=== PATIENT | male | born 1980 | race Caucasian/White ===

== ENCOUNTER 2016-10-19 17:38 | Emergency (ER) | payer BC ==
[2016-10-19 17:51] VITALS: BP 156/121
--- NOTE | 2016-10-19 17:58 | UC ---
Abdominal Pain Male HPI - HPI Summary HPI Summary: The patient comes in today for: 1. Abdominal pain and frequency of stooling. Onset: Going on for a week. Palliative/provocative: Nothing makes his symptoms better or worse. Quality: Sharp Region: The whole abdomen with some pain radiation to the lower back. Severity: 6/10 Time: Comes and goes. Associated symptoms: Hematochezia: Present for a week. Previous disease: He had this before about a half year ago. He did not see any specialist. Fevers: NO temperature taken. Stools are firm with blood present. There have been blood clots recently with his firm bowel movements. Sex active: one female partner with no anal activity. * - History of Current Complaint Chief Complaint: UCGI Stated Complaint: STOMACH ACHE Time Seen by Provider: 10/19/16 17:53 Hx Obtained From: Patient - Allergies/Home Medications Allergies/Adverse Reactions: Allergies Allergy/AdvReac Type Severity Reaction Status Date / Time No Known Allergies Allergy Verified 10/19/16 17:51 PMH/Surg Hx/FS Hx/Imm Hx Previously Healthy: No Endocrine History Of: Denies: Diabetes, Thyroid Disease, Hyperthyroidism, Hypothyroidism, Dyslipidemia Cardiovascular History Of: Denies: Cardiac Disorders, Hypertension, Pacemaker/ICD, Myocardial Infarction , Congestive Heart Failure, Atrial Fibrillation, Deep Vein Thrombosis, Bleeding Disorders Respiratory History Of: Denies: COPD, Asthma, Bronchitis, Pneumonia, Pulmonary Embolism GI/ History Of: Reports: Gastrointestinal Bleed - See HPI. HE had this before. Denies: Gastroesophageal Reflux, Ulcer, Gall Bladder Disease, Kidney Stones, Diverticulitis, Renal Disease, Urosepsis Neurological History Of: Denies: TIA, CVA, Dementia, Seizures, Migraine Psychological History Of: Denies: Anxiety, Depression, Bipolar Disorder, Schizophrenia, Post Traumatic Stress Disorder Cancer History Of: Denies: Lung Cancer, Colorectal Cancer, Breast Cancer, Prostate Cancer, Cervical Cancer Other History Of: Negative For: HIV, Hepatitis B, Hepatitis C, Anticoagulant Therapy - Surgical History Surgical History: None - Family History Known Family History: Negative: Cardiac Disease, Hypertension - Social History Occupation: Employed Full-time Alcohol Use: None Substance Use Type: None Smoking Status (MU): Former Smoker Review of Systems Constitutional: Negative Skin: Negative Eyes: Negative ENT: Negative Respiratory: Negative Cardiovascular: Negative Gastrointestinal: Abdominal Pain Genitourinary: Negative Motor: Negative All Other Systems Reviewed And Are Negative: Yes Physical Exam Triage Information Reviewed: Yes Appearance: Well-Appearing, No Pain Distress, Obese Vital Signs: Initial Vital Signs Temp 98.2 F 10/19/16 17:47 Pulse 109 10/19/16 17:47 Resp 14 10/19/16 17:47 BP 156/121 10/19/16 17:47 Pulse Ox 98 10/19/16 17:47 Vital Signs Reviewed: Yes Eyes: Positive: Conjunctiva Clear. Negative: Discharge ENT: Positive: Hearing grossly normal. Negative: Pharyngeal erythema, Nasal congestion, Nasal drainage, TM bulging, TM dull, TM red, Tonsillar swelling, Tonsillar exudate Dental: Negative: Gross Decay/Caries @, Dental Fracture @ Neck: Positive: Supple, Nontender, No Lymphadenopathy. Negative: Nuchal Rigidity Respiratory: Positive: Lungs clear, No respiratory distress, No accessory muscle use. Negative: Crackles, Wheezing Cardiovascular: Positive: RRR, No Murmur Abdomen Description: Positive: No Organomegaly, Soft, Other: - Examination was difficult due to amount of adipose tissue.. Negative: Nontender - He had tenderness of the lower left quadrant, Distended, Guarding, McBurney's Point Tenderness, Peritoneal Signs - No rebound our percussion tenderness. Musculoskeletal: Positive: Strength Intact, ROM Intact, No Edema Neurological: Positive: Alert, Muscle Tone Normal Psychological: Positive: Age Appropriate Behavior, Consolable Skin: Negative: rashes, breakdown UC Physical Exam Vital Signs On Initial Exam: Initial Vitals Temp Pulse Resp BP Pulse Ox 98.2 F 109 14 156/121 98 10/19/16 17:47 10/19/16 17:47 10/19/16 17:47 10/19/16 17:47 10/19/16 17:47 - Rectal Exam Rectal Exam: Other - The patient declined a rectal exam. Abd Pain Male Course/Dx - Course Course Of Treatment: The patient was told that I did not know what was causing his abdominal pain and bleeding. He was told that it could be diverticulitis/ diverticulosis, colitis, polyp, hemorrhoids, and other things. He was encouraged to go to the ER for further evaluation. However, he decided against that. - Differential Dx/Clinical Impression Provider Diagnoses: abdominal pain--etiology undertermined. hematochezia-- etiology undetermined. Discharge - Discharge Plan Condition: Stable Disposition: AGAINST MEDICAL ADVICE Referrals: No Primary Care Phys,NOPCP [Primary Care Provider] - Additional Instructions: If you are not going to the ER at this time as recommended, please at least reconsider if you get worse. Please see the GI specialists as those listed on the included papers.
== END 2016-10-19 18:47 | disposition left against medical advice (07) ==
LOC: UCCORT 17:38
DX: R10.32 Left lower quadrant pain (principal); K92.1 Melena; Z87.891 Personal history of nicotine dependence; E66.9 Obesity, unspecified
CPT/HCPCS: 99212; G0463

== ENCOUNTER 2016-10-28 12:17 | Inpatient (IN) | payer BC ==
[2016-10-28] MEDS ORDERED: Ondansetron INJ* 2 MG/ML VIAL IV ONE (12:36)
[2016-10-28] MEDS ORDERED: Pantoprazole IV* 40 MG IV ONE (12:36)
[2016-10-28] MEDS ORDERED: NS 0.9% 1000 ML* 2,000 ML IV ONE (12:36)
[2016-10-28 12:49] LABS: Hematocrit 35 % (42-52); Mean Corpuscular HGB Conc 32 g/dl (31-36); Mean Corpuscular Hemoglobin 22 pg (27-31); Mean Corpuscular Volume 70 fL (80-94); Mean Platelet Volume 9 um3 (7.4-10.4); Red Blood Count 5.03 10^6/ul (4.0-5.4); Red Cell Distribution Width 17 % (10.5-15); White Blood Count 23.6 10^3/ul (3.5-10.8)
[2016-10-28 12:55] LABS: Add Diff/Slide Review? Slide Review Added; Comments Flag Yes
[2016-10-28 13:05] LABS: ALT 46 U/L (7-52); AST 31 U/L (13-39); Albumin 2.6 g/dL (3.2-5.2); Alkaline Phosphatase 59 U/L (34-104); Anion Gap 12 mmol/L (2-11); BUN/Creatinine Ratio 18.5 (8-20); Blood Urea Nitrogen 15 mg/dL (6-24); C Reactive Protein 164.95 mg/L (< 5.00); CO2 Carbon Dioxide 26 mmol/L (22-32); Calcium 7.7 mg/dL (8.6-10.3); Chloride 90 mmol/L (101-111); EGFR African American 139.5 (>60); EGFR Non-African American 108.4 (>60); Glucose 178 mg/dL (70-100); Lipase < 10 U/L (11.0-82.0); Potassium 2.8 mmol/L (3.5-5.0); Sodium 128 mmol/L (133-145); Total Protein 5.6 g/dL (6.4-8.9)
--- NOTE | 2016-10-28 13:18 | RAD ---
Indication: Lightheadedness. Single frontal view of the chest performed at 1253 hours was reviewed. No prior study is available for comparison. No mediastinal shift is noted. Heart is of normal size and configuration. Lung cullen appear clear. IMPRESSION: NO ACTIVE CARDIOPULMONARY DISEASE IS NOTED.
[2016-10-28] MEDS ORDERED: metroNIDAZOLE IV 500 MG/100ML* 500 MG/100 ML BAG IVPB ONE (13:32)
[2016-10-28] MEDS ORDERED: Ciprofloxacin 400MG IVPREMIX(* 400 MG/200 ML BAG IVPB ONE (13:32)
[2016-10-28 13:38] LABS: Immature Granulocytes 28 % (0-9); Myelocytes % 2 % (0-1); Neutrophil % 58 % (38-83); Reactive Lymph % 2 % (0-6)
[2016-10-28 13:40] LABS: Macrocytosis 1+; Microcytosis 1+; Polychromasia 2+
[2016-10-28 13:41] LABS: Add Path Review? YES; Hypochromasia 2+
[2016-10-28] MEDS ORDERED: Iohexol 350* (CONTRAST) 500 ML MDV IV ONE (14:40)
[2016-10-28] MEDS ORDERED: Acetaminophen TAB* 325 MG PO PRN (14:52)
[2016-10-28] MEDS ORDERED: Ondansetron INJ* 2 MG/ML VIAL IV PRN (14:52)
[2016-10-28] MEDS ORDERED: Potassium Chloride LIQUID* 20 MEQ PACKET PO ONE (14:58)
[2016-10-28] MEDS ORDERED: NS 0.9% 1000 ML* 1,000 ML IV SCH (15:00)
[2016-10-28 15:25] LABS: Magnesium 2.2 mg/dL (1.9-2.7)
[2016-10-28] MEDS ORDERED: Iohexol 300* (CONTRAST) 10 ML SDV IV ONE (15:30)
[2016-10-28] MEDS: NS 0.9% 1000 ML* 2,000 ML IV ONE (16:03)
[2016-10-28] MEDS: KCL 20 MEQ/100 ML IVPREMIX* 20 MEQ/100 ML BAG IV SCH ×2 (16:12→23:37)
--- NOTE | 2016-10-28 16:12 | RAD ---
Indication: Abdominal pain, bloody diarrhea. CT of the abdomen and pelvis was performed after oral and IV contrast administration. The lung bases demonstrate small right pleural effusion with right basilar atelectasis. Heart demonstrates no pericardial effusion. Liver is normal in size. No focal lesions or intrahepatic ductal dilatation. A small amount of ascites is noted. The gallbladder demonstrates small gallstones. No pericholecystic fluid or wall thickening is identified. Common duct is not dilated. The pancreas demonstrates no mass or pancreatic duct dilatation. The spleen is normal in size. No adrenal masses are noted. The kidneys demonstrate symmetric nephrograms without hydronephrosis in either kidney. No retroperitoneal lymphadenopathy is noted. No dilated loops of bowel are noted. CT of the pelvis prostate and seminal vesicles are unremarkable. The urinary bladder is unremarkable. No abnormal adenopathy is noted. There is submucosal edema throughout the entire colon. This is consistent with a pain colitis. This extends into the terminal ileum. Differential diagnosis includes inflammatory bowel disease, infectious colitis or pseudomembranous colitis. Clinical correlation is suggested. IMPRESSION: SUBMUCOSAL EDEMA THROUGHOUT THE COLON EXTENDING INTO THE TERMINAL ILEUM. FINDINGS ARE CONSISTENT WITH INFLAMMATORY BOWEL DISEASE VERSUS INFECTIOUS COLITIS VERSUS PSEUDOMEMBRANOUS COLITIS. NO EVIDENCE OF ABSCESS IS NOTED. TRACE AMOUNT OF ASCITES AND A SMALL RIGHT PLEURAL EFFUSION.
[2016-10-28] MEDS: Ciprofloxacin 400MG IVPREMIX(* 400 MG/200 ML BAG IVPB SCH (16:14)
[2016-10-28] MEDS: metroNIDAZOLE IV 500 MG/100ML* 500 MG/100 ML BAG IVPB SCH ×2 (16:14→23:47)
--- NOTE | 2016-10-28 19:52 | ED ---
Jaxon Campbell Billy, scribed for Luis A Magallanes MD on 10/28/16 at 1235 . Abdominal Pain/Male - HPI Summary HPI Summary: Patient is a 36 year-old male coming to [facility] for evaluation of intermittent blood in the stool for approximately 1 month. He was seen in the [facility] ED on 10/20/16 and was diagnosed with constipation, and discharged home with Monica-lax. He then visited the ED again 2 days later and was diagnosed with colitis with CT imaging. He states that he feels dizzy and pale and has intermittent diffuse abdominal pain. He has also had numerous episodes of vomiting and diarrhea. He describes his stool as occasionally black, brown, or with bright red blood. He also states that his naval is painful with intermittent bloody discharge. Denies any history of GERD or bloodthinner use. - History of Current Complaint Chief Complaint: EDGIBleed Stated Complaint: BLOOD IN STOOL/DIZZY Time Seen by Provider: 10/28/16 12:26 Hx Obtained From: Patient Onset/Duration: Gradual Onset, Lasting Weeks Timing: Intermittent Severity Initially: Moderate Severity Currently: Moderate Pain Intensity: 3 Pain Scale Used: 0-10 Numeric Location: Diffuse Radiates: No Aggravating Factor(s): Nothing Alleviating Factor(s): Nothing Associated Signs And Symptoms: Positive: Blood in Stool, Nausea, Vomiting, Diarrhea, Other - dizzy, pale - Allergies/Home Medications Allergies/Adverse Reactions: Allergies Allergy/AdvReac Type Severity Reaction Status Date / Time No Known Allergies Allergy Verified 10/28/16 12:20 PMH/Surg Hx/FS Hx/Imm Hx Endocrine/Hematology History: Denies: Hx Anticoagulant Therapy, Hx Diabetes, Hx Thyroid Disease Cardiovascular History: Denies: Hx Congestive Heart Failure, Hx Deep Vein Thrombosis, Hx Hypertension , Hx Myocardial Infarction, Hx Pacemaker/ICD Respiratory History: Denies: Hx Asthma, Hx Chronic Obstructive Pulmonary Disease (COPD), Hx Lung Cancer, Hx Pneumonia, Hx Pulmonary Embolism GI History: Reports: Hx Gastrointestinal Bleed - See HPI. HE had this before. Denies: Hx Gall Bladder Disease, Hx Ulcer, Hx Urosepsis History: Denies: Hx Kidney Stones, Hx Renal Disease Neurological History: Denies: Hx Dementia, Hx Migraine, Hx Seizures, Hx Transient Ischemic Attacks (TIA) Psychiatric History: Denies: Hx Anxiety, Hx Depression, Hx Schizophrenia, Hx Bipolar Disorder Infectious Disease History: Denies: Traveled Outside the [place] in Last 30 Days - Family History Known Family History: Negative: Cardiac Disease, Hypertension - Social History Alcohol Use: None Substance Use Type: Reports: None Smoking Status (MU): Former Smoker Review of Systems Positive: Abdominal Pain, Vomiting, Diarrhea, Nausea, Other - blood in stool; naval discharge Positive: Other - pale Neurological: Other - dizzy All Other Systems Reviewed And Are Negative: Yes Physical Exam Triage Information Reviewed: Yes Vital Signs On Initial Exam: Initial Vitals Temp Pulse Resp BP Pulse Ox 98 F 109 22 151/98 98 10/28/16 12:21 10/28/16 12:21 10/28/16 12:21 10/28/16 12:21 10/28/16 12:21 Vital Signs Reviewed: Yes Appearance: Positive: Well-Appearing, No Pain Distress Skin: Positive: Warm, Dry, Pale Head/Face: Positive: Normal Head/Face Inspection Eyes: Positive: EOMI, JAN ENT: Positive: Normal ENT inspection Neck: Positive: Supple, Nontender Respiratory/Lung Sounds: Positive: Clear to Auscultation, Breath Sounds Present Cardiovascular: Positive: Tachycardia Abdomen Description: Positive: Nontender, Soft Bowel Sounds: Positive: Present Musculoskeletal: Positive: Normal, Strength/ROM Intact Neurological: Positive: Normal, Sensory/Motor Intact, Alert, Oriented to Person Place, Time Psychiatric: Positive: Affect/Mood Appropriate Diagnostics - Vital Signs Vital Signs Temp Pulse Resp BP Pulse Ox 10/28/16 12:21 98 F 109 22 151/98 98 - Laboratory Lab Results: Lab Results 10/28/16 10/28/16 10/28/16 Range/Units 12:35 12:35 12:35 WBC 23.6 H (3.5-10.8) 10^3/ul RBC 5.03 (4.0-5.4) 10^6/ul Hgb 11.0 L (14.0-18.0) g/dl Hct 35 L (42-52) % MCV 70 L (80-94) fL MCH 22 L (27-31) pg MCHC 32 (31-36) g/dl RDW 17 H (10.5-15) % Plt Count 70 L (150-450) 10^3/ul MPV 9 (7.4-10.4) um3 Immature Gran % (Auto) 28 H (0-9) % Neut % (Auto) 88.3 H (38-83) % Lymph % (Auto) 6.7 L (25-47) % Logan % (Auto) 4.6 (1-9) % Eos % (Auto) 0.1 (0-6) % Baso % (Auto) 0.3 (0-2) % Absolute Neuts (auto) 20.8 H (1.5-7.7) 10^3/ul Absolute Lymphs (auto) 1.6 (1.0-4.8) 10^3/ul Absolute Monos (auto) 1.1 H (0-0.8) 10^3/ul Absolute Eos (auto) 0 (0-0.6) 10^3/ul Absolute Basos (auto) 0.1 (0-0.2) 10^3/ul Absolute Nucleated RBC 0.14 10^3/ul Neutrophils % 58 (38-83) % Band Neutrophils % 26 H (0-8) % Lymphocytes % 10 L (25-47) % Reactive Lymphs % 2 (0-6) % Monocytes % 2 (0-13) % Myelocytes % 2 H (0-1) % Nucleated RBC % 0.6 Normal RBC Morphology Not Reportable Polychromasia 2+ Hypochromasia 2+ Microcytosis 1+ Macrocytosis 1+ Hem Pathologist Commnt Pending INR (Anticoag Therapy) 1.30 H (0.89-1.11) APTT 31.7 (26.0-36.3) seconds Sodium 128 L (133-145) mmol/L Potassium 2.8 L (3.5-5.0) mmol/L Chloride 90 L (101-111) mmol/L Carbon Dioxide 26 (22-32) mmol/L Anion Gap 12 H (2-11) mmol/L BUN 15 (6-24) mg/dL Creatinine 0.81 (0.67-1.17) mg/dL Est GFR ( Amer) 139.5 (>60) Est GFR (Non-Af Amer) 108.4 (>60) BUN/Creatinine Ratio 18.5 (8-20) Glucose 178 H (70-100) mg/dL Lactic Acid (0.5-2.0) mmol/L Calcium 7.7 L (8.6-10.3) mg/dL Magnesium 2.2 (1.9-2.7) mg/dL Total Bilirubin 0.50 (0.2-1.0) mg/dL AST 31 (13-39) U/L ALT 46 (7-52) U/L Alkaline Phosphatase 59 (34-104) U/L C-Reactive Protein 164.95 H (< 5.00) mg/L Total Protein 5.6 L (6.4-8.9) g/dL Albumin 2.6 L (3.2-5.2) g/dL Globulin 3.0 (2-4) g/dL Albumin/Globulin Ratio 0.9 L (1-3) Lipase < 10 L (11.0-82.0) U/L Blood Type Antibody Screen 10/28/16 10/28/16 Range/Units 12:35 12:35 WBC (3.5-10.8) 10^3/ul RBC (4.0-5.4) 10^6/ul Hgb (14.0-18.0) g/dl Hct (42-52) % MCV (80-94) fL MCH (27-31) pg MCHC (31-36) g/dl RDW (10.5-15) % Plt Count (150-450) 10^3/ul MPV (7.4-10.4) um3 Immature Gran % (Auto) (0-9) % Neut % (Auto) (38-83) % Lymph % (Auto) (25-47) % Logan % (Auto) (1-9) % Eos % (Auto) (0-6) % Baso % (Auto) (0-2) % Absolute Neuts (auto) (1.5-7.7) 10^3/ul Absolute Lymphs (auto) (1.0-4.8) 10^3/ul Absolute Monos (auto) (0-0.8) 10^3/ul Absolute Eos (auto) (0-0.6) 10^3/ul Absolute Basos (auto) (0-0.2) 10^3/ul Absolute Nucleated RBC 10^3/ul Neutrophils % (38-83) % Band Neutrophils % (0-8) % Lymphocytes % (25-47) % Reactive Lymphs % (0-6) % Monocytes % (0-13) % Myelocytes % (0-1) % Nucleated RBC % Normal RBC Morphology Polychromasia Hypochromasia Microcytosis Macrocytosis Hem Pathologist Commnt INR (Anticoag Therapy) (0.89-1.11) APTT (26.0-36.3) seconds Sodium (133-145) mmol/L Potassium (3.5-5.0) mmol/L Chloride (101-111) mmol/L Carbon Dioxide (22-32) mmol/L Anion Gap (2-11) mmol/L BUN (6-24) mg/dL Creatinine (0.67-1.17) mg/dL Est GFR ( Amer) (>60) Est GFR (Non-Af Amer) (>60) BUN/Creatinine Ratio (8-20) Glucose (70-100) mg/dL Lactic Acid 3.7 H* (0.5-2.0) mmol/L Calcium (8.6-10.3) mg/dL Magnesium (1.9-2.7) mg/dL Total Bilirubin (0.2-1.0) mg/dL AST (13-39) U/L ALT (7-52) U/L Alkaline Phosphatase (34-104) U/L C-Reactive Protein (< 5.00) mg/L Total Protein (6.4-8.9) g/dL Albumin (3.2-5.2) g/dL Globulin (2-4) g/dL Albumin/Globulin Ratio (1-3) Lipase (11.0-82.0) U/L Blood Type A Negative Antibody Screen Negative Result Diagrams: 10/28/16 12:35 10/28/16 12:35 Lab Statement: Any lab studies that have been ordered have been reviewed, and results considered in the medical decision making process. - Radiology CXR Xray Interpretation: No Acute Changes Radiology Interpretation Completed By: Radiologist - CT abd/pel w CT Interpretation Completed By: Radiologist - SUBMUCOSAL EDEMA THROUGHOUT THE COLON EXTENDING INTO THE TERMINAL ILEUM. FINDINGS ARE CONSISTENT WITH INFLAMMATORY BOWEL DISEASE VERSUS INFECTIOUS COLITIS VERSUS PSEUDOMEMBRANOUS COLITIS. NO EVIDENCE OF ABSCESS IS NOTED. TRACE AMOUNT OF ASCITES AND A SMALL RIGHT PLEURAL EFFUSION. - EKG 1302 Cardiac Rate: NL - 98 bpm EKG Rhythm: Sinus Rhythm ST Segment: Normal EKG Interpretation: Prolonged QTc 511 Re-Evaluation - Re-Evaluation First Eval Re-Evaluation Time: 13:28 Comment: Labs reviewed. Abdominal Pain Fem Course/Dx - Course Course Of Treatment: NO CRITICAL CARE TIME Assessment/Plan: ADMIT HOSPITALIST STABLE - Diagnoses Provider Diagnoses: Colitis - Provider Notifications Discussed Care Of Patient With: Dr. Carmichael (hospitalist) at 1330: accepts admission. Discharge - Discharge Plan Condition: Stable Disposition: ADMITTED TO [facility] documentation as recorded by the Jaxon tristan Billy accurately reflects the service I personally performed and the decisions made by me, Luis A Magallanes MD.
[2016-10-28 20:59] LABS: Hematocrit 29 % (42-52)
[2016-10-28 21:00] LABS: Comments Flag Yes
--- NOTE | 2016-10-28 22:29 | HP ---
HISTORY AND PHYSICAL: DATE OF ADMISSION: 10/28/16 PRIMARY CARE PROVIDER: None. ATTENDING PHYSICIAN WHILE IN THE HOSPITAL: Manuel Carmichael MD * (report dictated by Sheridan Espinoza NP) CONSULTING MANAGER ORACLE: Herrera Winkler MD CHIEF COMPLAINT: Bloody diarrhea. HISTORY OF PRESENT ILLNESS: Mr. Hardin is a 36-year-old male patient, for the last 10 days, he has had blood diarrhea almost on an hourly basis. He comes in today stating that this has gotten progressively worse. He was evaluated twice in [place]. He was told by them that he appeared to have a CAT scan that showed colitis per his report and said that he was discharged for a close followup with Gastroenterology. He denies having any episodes like this previously. He says that he has not had any change in symptoms today as he started vomiting and was not feeling good. He says that when he does go to the bathroom, he is having cramping, but he denies having any recent trips or travel. There is no use of recent antibiotics. He says that he has not had any , again there is no abdominal pain and he only had one episode of vomiting today. He does admit to having some chills, but no fever to his knowledge; he does not have a thermometer. He denied having any chest pain or shortness of breath. He does state that he has been trying to eat, but he has noticed his appetite has decreased over the last couple of days and he just has not been feeling well and he felt very weak today, so he decided to come into the ER and he was evaluated. Here in the ED, it was noted that he has significant leukocytosis. He appeared to be dehydrated. In addition to this, he was noted to have a lactic acidosis and he was having frequent stools here in the ED. Because of these findings, the Hospitalist Service was asked to evaluate for admission. PAST MEDICAL HISTORY: Denied. PAST SURGICAL HISTORY: Denied. HOME MEDICATIONS: Includes ibuprofen 800 mg every 6 hours as needed for pain, although he says he has not been taking that over the last several weeks because of what has been going on. ALLERGIES TO MEDICATIONS: No known drug allergies. FAMILY HISTORY: Mother had a history of COPD. Father's history is reviewed and noncontributory. There has been no reports in the family history of ulcerative colitis or Crohn's to his knowledge. SOCIAL HISTORY: He has been smoking off and on since the age of 17. He does not drink alcohol. He is . He does have children. Surrogate decision maker is his significant other. REVIEW OF SYSTEMS: There is documented chills, but denies having any documented fever. He denied having any significant weight change to his knowledge. He denied having any double vision. There was no ear discharge. He denies having any rhinorrhea or any sore throat. He had no thyroid enlargement. He denies having any chest pain. He has abdominal cramping when he does have diarrhea and there was one episode or nausea and vomiting, but no dysuria. No frequency. No loss of consciousness. No pruritus. No skin ulcerations. Review of 14 systems completed, all others negative. PHYSICAL EXAMINATION GENERAL: At this time, Mr. Hardin is a 36-year-old male patient. He is obese. He is sitting in the ER stretcher. He does not appear to be in any acute distress. VITAL SIGNS: Reveals blood pressure 160/67, pulse 102, respirations 18, O2 sat of 99%, and temperature 97.2. HEENT: Head is atraumatic and normocephalic. Eyes: EOMs are intact. Sclerae anicteric and not pale. NECK: Supple. Throat: Oral mucosa appears to be moist. No oropharyngeal erythema. LUNGS: Clear to auscultation bilaterally. No wheezes, rales, or rhonchi. HEART: Sounds S1, S2. Regular rate and rhythm. No murmurs, rubs, or gallops. ABDOMEN: Soft, flat, and nontender. Bowel sounds present. He did have a liquid BM while examining him, once again it was noted to be red discoloration, in addition to this it was liquid. Bowel sounds were hyperactive. EXTREMITIES: Pulses were 2+ throughout. He is able to move all 4 extremities with 5/5 strength. NEUROLOGIC: The patient is awake, he is alert, and he is oriented x3. Tongue midline. Wave Soldering Machine Operator were equal. He had no gross focal deficits. SKIN: Intact. DIAGNOSTIC STUDIES/LAB DATA: Labs revealed WBC of 23.6, RBC of 5.03, hemoglobin 11.8, hematocrit of 35, and platelet count of 170. His INR was 1.30 and his PTT was 31.7. Sodium was 138, potassium was 2.8, chloride 90, bicarb was 26, his BUN was 15, creatinine of 0.81, glucose 178, lactic 3.7, and calcium 7.7. Total bilirubin 0.5, AST 31, and ALT 46. His CRP was 164.9. Albumin of 2.6. Lipase was negative. Chest x-ray shows no active cardiopulmonary disease was noted. He had an EKG obtained today, which showed a normal sinus rhythm, rate of 98, and no ST elevation or T-wave inversions. C. diff was negative. Old medical records reviewed. ASSESSMENT AND PLAN: Mr. Hardin is a 36-year-old male patient coming into the ER today with complaints of liquidy, bloody diarrhea which is going on for 10 days. His H and H is stable; however, because of the fact that he had a significant bandemia and he had several electrolyte abnormalities. Hospitalist Service was asked to evaluate for admission. He will be admitted under inpatient status for: 1. Diarrhea: At this point, etiology is unclear. Certainly, this could be a colitis whether or not infectious or inflammatory is yet to be determined; however, it sounds like it is probably more infectious given his lab findings and the fact that this has been going on for 10 days. I do think the GI consult is appropriate, antibiotics at this point are appropriate in the form of Cipro, Flagyl, aggressive hydration, and a CT of the abdomen is pending. He do not appear to have an acute abdomen on my exam, but obviously if the CAT scan shows anything concerning, we will get a surgical consult. I do think, we will go ahead and hydrate him aggressively, replace his potassium. I think, he is hyponatremic because of the fact he is so dehydrated and we will try to get this improved with aggressive hydration. We will give him 4 L of wide open and normal saline and 100 an hour and continue IV antibiotic therapy. 2. Thrombocytopenia: Again, etiology is unclear. It could be related to an underlying viral illness causing this GI problem, possibly could be related to the fact that he has lost a fair amount of blood in the setting of acute illness. We will monitor this for the time being. 3. Leukocytosis: Again this is probably related to the colitis, but I am going to get panculture the patient and we will monitor. Again, we will panculture the stool and urine and we will monitor for any source, but I am going to treat him with empiric antibiotics. I do note that his lactic acid is 3.7, we are going to again hydrate him and repeat this and make sure it is trending down. 4. DVT prophylaxis: He will be placed on SCDs. 5. Code status: He is full code. 6. Fluids, electrolytes, and nutrition: Clear liquid diet. TIME SPENT: Time spent on the admission was 60 minutes; greater than half the time was spent [id number] with the patient obtaining my history and physical, the other half time is spent going over the plan of care with the patient and implementing plan of care. I discussed the plan of care with my attending, Dr. Carmichael. He is in agreement. SHERIDAN ESPINOZA NP CC: Herrera Winkler MD* [id number]/CPS #: [id number] MTDD
[2016-10-29] MEDS: Ciprofloxacin 400MG IVPREMIX(* 400 MG/200 ML BAG IVPB SCH ×2 (03:03→15:46)
[2016-10-29 07:01] LABS: Hematocrit 30 % (42-52); Hemoglobin 9.3 g/dl (14.0-18.0); Mean Corpuscular HGB Conc 32 g/dl (31-36); Mean Corpuscular Hemoglobin 22 pg (27-31); Mean Platelet Volume 10 um3 (7.4-10.4); Red Blood Count 4.22 10^6/ul (4.0-5.4); Red Cell Distribution Width 17 % (10.5-15); White Blood Count 17.7 10^3/ul (3.5-10.8)
[2016-10-29 07:11] LABS: Comments Flag Yes
[2016-10-29 07:12] LABS: Mean Corpuscular Volume 70 fL (80-94)
[2016-10-29 07:14] LABS: BUN/Creatinine Ratio 19.5 (8-20); C Reactive Protein 135.12 mg/L (< 5.00); Calcium 7.2 mg/dL (8.6-10.3); EGFR African American 147.9 (>60); Potassium 2.8 mmol/L (3.5-5.0)
[2016-10-29] MEDS: KCL 20 MEQ/100 ML IVPREMIX* 20 MEQ/100 ML BAG IV SCH ×3 (07:56→15:33)
[2016-10-29] MEDS: metroNIDAZOLE IV 500 MG/100ML* 500 MG/100 ML BAG IVPB SCH ×2 (08:38→20:09)
[2016-10-29] MEDS ORDERED: Potassium Chlor TAB* 20 MEQ TAB.ER PO ONE (10:53)
[2016-10-29] MEDS ORDERED: Morphine INJ* 2 MG/ML 1 ML SYRINGE IV PRN (11:06)
--- NOTE | 2016-10-29 11:15 | PN ---
Subjective Date of Service: 10/29/16 Interval History: Pt is feeling lousy. He states he is still having bloody diarrhea every 30- 60minutes. He states that his abdomen is uncomfortable. He has intermittent nausea-that seems worse with taking in something by mouth. Objective Active Medications: Acetaminophen (Tylenol Tab*) 650 mg PO Q4H PRN PRN Reason: FEVER/PAIN Hydrocodone Bitart/Acetaminophen ([place] 5-325 Tab*) 1 tab PO Q4H PRN PRN Reason: PAIN Ciprofloxacin/Dextrose (Cipro 400 Mg Ivpremix(*)) 400 mg in 200 mls @ 200 mls/ hr IVPB Q12H [facility] Last Admin: 10/29/16 03:03 Dose: 200 mls/hr Sodium Chloride (Ns 0.9% 1000 Ml*) 1,000 mls @ 100 mls/hr IV PER RATE [facility] Last Admin: 10/29/16 00:46 Dose: 100 mls/hr Potassium Chloride (Potassium Chloride 20 Meq/100 Ml Ivpremix*) 20 meq in 100 mls @ 50 mls/hr IV Q2H [facility] Stop: 10/29/16 14:59 Metronidazole/Sodium Chloride (Flagyl 500 Mg Ivpb*) 500 mg in 100 mls @ 100 mls /hr IVPB Q12H [facility] Morphine Sulfate (Morphine Inj (Syringe)*) 2 mg IV Q4H PRN PRN Reason: PAIN - MILD Ondansetron HCl (Zofran Inj*) 4 mg IV Q6H PRN PRN Reason: NAUSEA Last Admin: 10/28/16 19:38 Dose: 4 mg Vital Signs 10/28/16 10/28/16 10/28/16 15:00 16:04 16:40 Temperature 97.9 F Pulse Rate 99 93 101 Respiratory 16 Rate Blood Pressure 153/94 152/86 152/86 (mmHg) O2 Sat by Pulse 100 100 96 Oximetry 10/28/16 10/28/16 10/28/16 19:53 20:10 23:34 Temperature 98.1 F 97.4 F Pulse Rate 102 107 Respiratory 16 15 18 Rate Blood Pressure 143/91 141/98 (mmHg) O2 Sat by Pulse 98 98 Oximetry 10/29/16 10/29/16 10/29/16 03:22 07:37 08:00 Temperature 98.8 F 97.7 F Pulse Rate 97 89 Respiratory 18 20 20 Rate Blood Pressure 146/90 154/103 (mmHg) O2 Sat by Pulse 97 97 Oximetry Oxygen Devices in Use Now: None Appearance: Young male lying in bed, NAD Eyes: No Scleral Icterus Ears/Nose/Mouth/Throat: Mucous Membranes Moist Respiratory: Symmetrical Chest Expansion and Respiratory Effort, Clear to Auscultation Cardiovascular: NL Sounds; No Murmurs; No JVD, RRR, No Edema Abdominal: - - BS+ soft, ND, mildly tender to palpation in the LLQ Extremities: No Clubbing, Cyanosis Skin: No Rash or Ulcers, No Nodules or Sclerosis Neurological: Alert and Oriented x 3 Result Diagrams: 10/29/16 06:46 10/29/16 06:46 Additional Lab and Data: Lab Results 10/28/16 10/28/16 10/28/16 Range/Units 12:35 12:35 12:35 WBC 23.6 H (3.5-10.8) 10^3/ul RBC 5.03 (4.0-5.4) 10^6/ul Hgb 11.0 L (14.0-18.0) g/dl Hct 35 L (42-52) % MCV 70 L (80-94) fL MCH 22 L (27-31) pg MCHC 32 (31-36) g/dl RDW 17 H (10.5-15) % Plt Count 70 L (150-450) 10^3/ul MPV 9 (7.4-10.4) um3 Immature Gran % (Auto) 28 H (0-9) % Neut % (Auto) 88.3 H (38-83) % Lymph % (Auto) 6.7 L (25-47) % [place] % (Auto) 4.6 (1-9) % Eos % (Auto) 0.1 (0-6) % Baso % (Auto) 0.3 (0-2) % Absolute Neuts (auto) 20.8 H (1.5-7.7) 10^3/ul Absolute Lymphs (auto) 1.6 (1.0-4.8) 10^3/ul Absolute Monos (auto) 1.1 H (0-0.8) 10^3/ul Absolute Eos (auto) 0 (0-0.6) 10^3/ul Absolute Basos (auto) 0.1 (0-0.2) 10^3/ul Absolute Nucleated RBC 0.14 10^3/ul Neutrophils % 58 (38-83) % Band Neutrophils % 26 H (0-8) % Lymphocytes % 10 L (25-47) % Reactive Lymphs % 2 (0-6) % Monocytes % 2 (0-13) % Myelocytes % 2 H (0-1) % Nucleated RBC % 0.6 Normal RBC Morphology Not Reportable Polychromasia 2+ Hypochromasia 2+ Microcytosis 1+ Macrocytosis 1+ Hem Pathologist Commnt Pending INR (Anticoag Therapy) 1.30 H (0.89-1.11) APTT 31.7 (26.0-36.3) seconds Sodium 128 L (133-145) mmol/L Potassium 2.8 L (3.5-5.0) mmol/L Chloride 90 L (101-111) mmol/L Carbon Dioxide 26 (22-32) mmol/L Anion Gap 12 H (2-11) mmol/L BUN 15 (6-24) mg/dL Creatinine 0.81 (0.67-1.17) mg/dL Est GFR ( Amer) 139.5 (>60) Est GFR (Non-Af Amer) 108.4 (>60) BUN/Creatinine Ratio 18.5 (8-20) Glucose 178 H (70-100) mg/dL Lactic Acid (0.5-2.0) mmol/L Calcium 7.7 L (8.6-10.3) mg/dL Magnesium 2.2 (1.9-2.7) mg/dL Total Bilirubin 0.50 (0.2-1.0) mg/dL AST 31 (13-39) U/L ALT 46 (7-52) U/L Alkaline Phosphatase 59 (34-104) U/L C-Reactive Protein 164.95 H (< 5.00) mg/L Total Protein 5.6 L (6.4-8.9) g/dL Albumin 2.6 L (3.2-5.2) g/dL Globulin 3.0 (2-4) g/dL Albumin/Globulin Ratio 0.9 L (1-3) Lipase < 10 L (11.0-82.0) U/L Blood Type Antibody Screen 10/28/16 10/28/16 Range/Units 12:35 12:35 WBC (3.5-10.8) 10^3/ul RBC (4.0-5.4) 10^6/ul Hgb (14.0-18.0) g/dl Hct (42-52) % MCV (80-94) fL MCH (27-31) pg MCHC (31-36) g/dl RDW (10.5-15) % Plt Count (150-450) 10^3/ul MPV (7.4-10.4) um3 Immature Gran % (Auto) (0-9) % Neut % (Auto) (38-83) % Lymph % (Auto) (25-47) % [place] % (Auto) (1-9) % Eos % (Auto) (0-6) % Baso % (Auto) (0-2) % Absolute Neuts (auto) (1.5-7.7) 10^3/ul Absolute Lymphs (auto) (1.0-4.8) 10^3/ul Absolute Monos (auto) (0-0.8) 10^3/ul Absolute Eos (auto) (0-0.6) 10^3/ul Absolute Basos (auto) (0-0.2) 10^3/ul Absolute Nucleated RBC 10^3/ul Neutrophils % (38-83) % Band Neutrophils % (0-8) % Lymphocytes % (25-47) % Reactive Lymphs % (0-6) % Monocytes % (0-13) % Myelocytes % (0-1) % Nucleated RBC % Normal RBC Morphology Polychromasia Hypochromasia Microcytosis Macrocytosis Hem Pathologist Commnt INR (Anticoag Therapy) (0.89-1.11) APTT (26.0-36.3) seconds Sodium (133-145) mmol/L Potassium (3.5-5.0) mmol/L Chloride (101-111) mmol/L Carbon Dioxide (22-32) mmol/L Anion Gap (2-11) mmol/L BUN (6-24) mg/dL Creatinine (0.67-1.17) mg/dL Est GFR ( Amer) (>60) Est GFR (Non-Af Amer) (>60) BUN/Creatinine Ratio (8-20) Glucose (70-100) mg/dL Lactic Acid 3.7 H* (0.5-2.0) mmol/L Calcium (8.6-10.3) mg/dL Magnesium (1.9-2.7) mg/dL Total Bilirubin (0.2-1.0) mg/dL AST (13-39) U/L ALT (7-52) U/L Alkaline Phosphatase (34-104) U/L C-Reactive Protein (< 5.00) mg/L Total Protein (6.4-8.9) g/dL Albumin (3.2-5.2) g/dL Globulin (2-4) g/dL Albumin/Globulin Ratio (1-3) Lipase (11.0-82.0) U/L Blood Type A Negative Antibody Screen Negative Microbiology and Other Data: Microbiology 10/28/16 22:00 Rotavirus Antigen - Final Stool Negative Rotavirus Assess/Plan/Problems-Billing Mr Hardin is a 36 yo M who has no significant PMHx who presented to the ER with c/o 10 days of bloody diarrhea. - Patient Problems (1) Bloody diarrhea Current Visit: Yes Status: Acute Code(s): R19.7 - DIARRHEA, UNSPECIFIED SNOMED Code(s): 92725255 Comment: CT scan shows colitis-? infectious vs inflammatory. Ischemic seems very unlikely. Initially he stated that he had been having symptoms for only 10 days however his mom states that 3 weeks ago he was having diarrhea very frequently (q30min). At that time however it was not bloody. GI consult is pending. Hold on starting steroids at this time but will continue cipro and flagyl. (2) Anemia Current Visit: Yes Status: Acute Code(s): D64.9 - ANEMIA, UNSPECIFIED SNOMED Code(s): 494377665 Comment: Likely secondary to GI loss and likely iron deficiency. H/H stable. Will continue to monitor. (3) Thrombocytopenia Current Visit: Yes Status: Acute Code(s): D69.6 - THROMBOCYTOPENIA, UNSPECIFIED SNOMED Code(s): 198241271 Comment: Plt count is slightly better today. ? viral vs ? consumption. Continue to monitor plt count. (4) DVT prophylaxis Current Visit: Yes Status: Acute Code(s): PJM4229 - SNOMED Code(s): 277181150 Comment: SCDs (5) Full code status Current Visit: Yes Status: Acute Code(s): Z78.9 - OTHER SPECIFIED HEALTH STATUS SNOMED Code(s): 130966508
[2016-10-29] MEDS: HYDROcodone/ACETAMIN 5-325 MG* 1 TAB PO PRN ×3 (11:16→22:02)
[2016-10-29] MEDS: PEG 3000 GI LAVAGE* 1 GALLON PO SCH (18:25)
[2016-10-29] MEDS: NS 0.9% 1000 ML* 1,000 ML IV SCH (21:58)
--- NOTE | 2016-10-29 22:34 | CONS ---
CONSULTATION REPORT: DATE OF CONSULT: 10/29/16 INDICATION: Bloody diarrhea. REQUESTING PHYSICIAN: Yoan Espinoza NP NARRATIVE: Mr. Hardin is a very pleasant 36-year-old gentleman with no past medical history who states about 3 weeks ago, he developed bloody diarrhea. He denies any significant abdominal pain. He will move his bowels about every hour. It is mainly blood at this point, some stool, never solid. He does have some oral ulcers. He denies any joint complaints. No eye inflammation. He had a similar episode approximately a year ago that lasted for 2 weeks and then resolved on its own. He denies any family history of inflammatory bowel disease. No recent antibiotics. No sick contacts. PAST MEDICAL HISTORY: None. SURGERIES: None. MEDICATIONS: None. ALLERGIES: None. He did take ibuprofen occasionally up until a few weeks ago. REVIEW OF SYSTEMS: Twelve systems were reviewed, other than that mentioned in the HPI were unremarkable. PHYSICAL EXAM: Temperature is 98.3, blood pressure is 133/81, pulse was 87, respiratory rate of 17, O2 sat is 98%. General: Well-appearing male, in no apparent distress. Alert, oriented, pleasant, and fluent. HEENT: Mucous membranes are moist without lesions, ulcers, or exudate. Head is normocephalic , atraumatic. Neck is supple. Trachea is midline. Heart: Regular rate and rhythm. Lungs: Clear to auscultation. Abdomen: Obese. Positive bowel sounds. Soft. Slightly tender on the left side. No rebound. No guarding. No masses were felt. Skin is warm and dry. Musculoskeletal: No CVA or spinal tenderness to palpation. DIAGNOSTIC STUDIES/LAB DATA: Of note, his white count fell from 23.6 to 17.7. Hemoglobin is 9.3. Platelets are 84. INR is 1.30. His sodium is 128, potassium is 2.8, BUN and creatinine are normal. His LFTs are unremarkable. His C-reactive protein went from 164 to 135. His albumin is 2.6. He has a CT abdomen and pelvis, it showed submucosal edema throughout the colon extending into terminal ileum. Findings are consistent with inflammatory bowel disease versus infectious colitis versus pseudomembranous colitis. No evidence of abscess is noted. His stools are negative for rotavirus, negative for crypto and Giardia, negative for shiga, negative for C. diff. ASSESSMENT AND PLAN: This is a pleasant 36-year-old gentleman with bloody diarrhea. Possible etiologies would include infectious; however, he is on antibiotics and really not getting much better. Also should be included would be inflammatory such as ulcerative colitis or Crohn's disease. I think at this point, he needs either a flex sig or full colonoscopy for further evaluation. Additionally, of note, he is thrombocytopenic and his INR is elevated. I do not have a good explanation for this. His LFTs are unremarkable, but his albumin is low. He may benefit from a Hematology consultation. We will make arrangements for his procedure tomorrow. [id number]/[facility] #: [id number] RODRICK
[2016-10-30] MEDS: HYDROcodone/ACETAMIN 5-325 MG* 1 TAB PO PRN ×3 (03:14→22:23)
[2016-10-30] MEDS: Ciprofloxacin 400MG IVPREMIX(* 400 MG/200 ML BAG IVPB SCH ×2 (03:14→16:13)
--- NOTE | 2016-10-30 07:47 | PN ---
Subjective Date of Service: 10/30/16 Interval History: Pt is still feeling lousy. Still with very frequent BMs. He states his stool last evening did not appear to have any dorie blood in it however this am the liquid coming out appears pink/bloody. His abdomen feels uncomfortable. No nausea. No lightheadedness. Objective Active Medications: Acetaminophen (Tylenol Tab*) 650 mg PO Q4H PRN PRN Reason: FEVER/PAIN Hydrocodone Bitart/Acetaminophen ([place] 5-325 Tab*) 1 tab PO Q4H PRN PRN Reason: PAIN Last Admin: 10/30/16 03:14 Dose: 1 tab Ciprofloxacin/Dextrose (Cipro 400 Mg Ivpremix(*)) 400 mg in 200 mls @ 200 mls/ hr IVPB Q12H [facility] Last Admin: 10/30/16 03:14 Dose: 200 mls/hr Sodium Chloride (Ns 0.9% 1000 Ml*) 1,000 mls @ 100 mls/hr IV PER RATE [facility] Last Admin: 10/29/16 00:46 Dose: 100 mls/hr Metronidazole/Sodium Chloride (Flagyl 500 Mg Ivpb*) 500 mg in 100 mls @ 100 mls /hr IVPB Q12H [facility] Last Admin: 10/29/16 20:09 Dose: 100 mls/hr Sodium Chloride (Ns 0.9% 1000 Ml*) 1,000 mls @ 100 mls/hr IV PER RATE [facility] Last Admin: 10/29/16 21:58 Dose: 100 mls/hr Morphine Sulfate (Morphine Inj (Syringe)*) 2 mg IV Q4H PRN PRN Reason: PAIN - MILD Ondansetron HCl (Zofran Inj*) 4 mg IV Q6H PRN PRN Reason: NAUSEA Last Admin: 10/28/16 19:38 Dose: 4 mg Polyethylene Glycol/Electrolytes (Golytely*) 1,000 ml PO 0800,1800 [facility] Stop: 10/30/16 08:01 Last Admin: 10/29/16 18:25 Dose: 1,000 ml Vital Signs 10/29/16 10/29/16 10/29/16 08:00 11:16 11:20 Temperature 97.8 F Pulse Rate 87 Respiratory 20 18 25 Rate Blood Pressure 150/92 (mmHg) O2 Sat by Pulse 99 Oximetry 04/10/29/16 10/29/16 13:16 15:41 17:28 Temperature 98.3 F Pulse Rate 87 Respiratory 18 17 18 Rate Blood Pressure 133/81 (mmHg) O2 Sat by Pulse 98 Oximetry 10/29/16 10/29/16 10/29/16 19:28 19:37 20:00 Temperature 97.3 F Pulse Rate 82 Respiratory 18 16 16 Rate Blood Pressure 156/99 (mmHg) O2 Sat by Pulse 100 Oximetry 10/29/16 10/29/16 10/30/16 22:02 23:37 00:02 Temperature 97.4 F Pulse Rate 90 Respiratory 18 16 14 Rate Blood Pressure 158/97 (mmHg) O2 Sat by Pulse 98 Oximetry 10/30/16 10/30/16 10/30/16 03:14 03:39 05:14 Temperature 97.5 F Pulse Rate 92 Respiratory 16 16 16 Rate Blood Pressure 141/85 (mmHg) O2 Sat by Pulse 99 Oximetry Oxygen Devices in Use Now: None Appearance: Young male lying in bed, NAD Eyes: No Scleral Icterus Ears/Nose/Mouth/Throat: Mucous Membranes Moist Respiratory: Symmetrical Chest Expansion and Respiratory Effort, Clear to Auscultation Cardiovascular: NL Sounds; No Murmurs; No JVD, RRR, No Edema Abdominal: - - BS hyperactive, soft, mildly distended, mildly tender to palpation throughout Extremities: No Clubbing, Cyanosis Skin: No Rash or Ulcers, No Nodules or Sclerosis Neurological: Alert and Oriented x 3 Result Diagrams: 10/29/16 06:46 10/29/16 06:46 Additional Lab and Data: Lab Results 10/28/16 10/28/16 10/28/16 Range/Units 12:35 12:35 12:35 WBC 23.6 H (3.5-10.8) 10^3/ul RBC 5.03 (4.0-5.4) 10^6/ul Hgb 11.0 L (14.0-18.0) g/dl Hct 35 L (42-52) % MCV 70 L (80-94) fL MCH 22 L (27-31) pg MCHC 32 (31-36) g/dl RDW 17 H (10.5-15) % Plt Count 70 L (150-450) 10^3/ul MPV 9 (7.4-10.4) um3 Immature Gran % (Auto) 28 H (0-9) % Neut % (Auto) 88.3 H (38-83) % Lymph % (Auto) 6.7 L (25-47) % [place] % (Auto) 4.6 (1-9) % Eos % (Auto) 0.1 (0-6) % Baso % (Auto) 0.3 (0-2) % Absolute Neuts (auto) 20.8 H (1.5-7.7) 10^3/ul Absolute Lymphs (auto) 1.6 (1.0-4.8) 10^3/ul Absolute Monos (auto) 1.1 H (0-0.8) 10^3/ul Absolute Eos (auto) 0 (0-0.6) 10^3/ul Absolute Basos (auto) 0.1 (0-0.2) 10^3/ul Absolute Nucleated RBC 0.14 10^3/ul Neutrophils % 58 (38-83) % Band Neutrophils % 26 H (0-8) % Lymphocytes % 10 L (25-47) % Reactive Lymphs % 2 (0-6) % Monocytes % 2 (0-13) % Myelocytes % 2 H (0-1) % Nucleated RBC % 0.6 Normal RBC Morphology Not Reportable Polychromasia 2+ Hypochromasia 2+ Microcytosis 1+ Macrocytosis 1+ Hem Pathologist Commnt Pending INR (Anticoag Therapy) 1.30 H (0.89-1.11) APTT 31.7 (26.0-36.3) seconds Sodium 128 L (133-145) mmol/L Potassium 2.8 L (3.5-5.0) mmol/L Chloride 90 L (101-111) mmol/L Carbon Dioxide 26 (22-32) mmol/L Anion Gap 12 H (2-11) mmol/L BUN 15 (6-24) mg/dL Creatinine 0.81 (0.67-1.17) mg/dL Est GFR ( Amer) 139.5 (>60) Est GFR (Non-Af Amer) 108.4 (>60) BUN/Creatinine Ratio 18.5 (8-20) Glucose 178 H (70-100) mg/dL Lactic Acid (0.5-2.0) mmol/L Calcium 7.7 L (8.6-10.3) mg/dL Magnesium 2.2 (1.9-2.7) mg/dL Total Bilirubin 0.50 (0.2-1.0) mg/dL AST 31 (13-39) U/L ALT 46 (7-52) U/L Alkaline Phosphatase 59 (34-104) U/L C-Reactive Protein 164.95 H (< 5.00) mg/L Total Protein 5.6 L (6.4-8.9) g/dL Albumin 2.6 L (3.2-5.2) g/dL Globulin 3.0 (2-4) g/dL Albumin/Globulin Ratio 0.9 L (1-3) Lipase < 10 L (11.0-82.0) U/L Blood Type Antibody Screen 10/28/16 10/28/16 Range/Units 12:35 12:35 WBC (3.5-10.8) 10^3/ul RBC (4.0-5.4) 10^6/ul Hgb (14.0-18.0) g/dl Hct (42-52) % MCV (80-94) fL MCH (27-31) pg MCHC (31-36) g/dl RDW (10.5-15) % Plt Count (150-450) 10^3/ul MPV (7.4-10.4) um3 Immature Gran % (Auto) (0-9) % Neut % (Auto) (38-83) % Lymph % (Auto) (25-47) % [place] % (Auto) (1-9) % Eos % (Auto) (0-6) % Baso % (Auto) (0-2) % Absolute Neuts (auto) (1.5-7.7) 10^3/ul Absolute Lymphs (auto) (1.0-4.8) 10^3/ul Absolute Monos (auto) (0-0.8) 10^3/ul Absolute Eos (auto) (0-0.6) 10^3/ul Absolute Basos (auto) (0-0.2) 10^3/ul Absolute Nucleated RBC 10^3/ul Neutrophils % (38-83) % Band Neutrophils % (0-8) % Lymphocytes % (25-47) % Reactive Lymphs % (0-6) % Monocytes % (0-13) % Myelocytes % (0-1) % Nucleated RBC % Normal RBC Morphology Polychromasia Hypochromasia Microcytosis Macrocytosis Hem Pathologist Commnt INR (Anticoag Therapy) (0.89-1.11) APTT (26.0-36.3) seconds Sodium (133-145) mmol/L Potassium (3.5-5.0) mmol/L Chloride (101-111) mmol/L Carbon Dioxide (22-32) mmol/L Anion Gap (2-11) mmol/L BUN (6-24) mg/dL Creatinine (0.67-1.17) mg/dL Est GFR ( Amer) (>60) Est GFR (Non-Af Amer) (>60) BUN/Creatinine Ratio (8-20) Glucose (70-100) mg/dL Lactic Acid 3.7 H* (0.5-2.0) mmol/L Calcium (8.6-10.3) mg/dL Magnesium (1.9-2.7) mg/dL Total Bilirubin (0.2-1.0) mg/dL AST (13-39) U/L ALT (7-52) U/L Alkaline Phosphatase (34-104) U/L C-Reactive Protein (< 5.00) mg/L Total Protein (6.4-8.9) g/dL Albumin (3.2-5.2) g/dL Globulin (2-4) g/dL Albumin/Globulin Ratio (1-3) Lipase (11.0-82.0) U/L Blood Type A Negative Antibody Screen Negative Microbiology and Other Data: Microbiology 10/28/16 22:00 Rotavirus Antigen - Final Stool Negative Rotavirus Assess/Plan/Problems-Billing Mr Hardin is a 36 yo M who has no significant PMHx who presented to the ER with c/o 10 days of bloody diarrhea. - Patient Problems (1) Bloody diarrhea Current Visit: Yes Status: Acute Code(s): R19.7 - DIARRHEA, UNSPECIFIED SNOMED Code(s): 61633806 Comment: Plan is for either flex sig or colonoscopy today. He continues to prep with the GoLytely. Continue to follow stooling frequency and monitor for the presence of blood. Pt's K was low yesterday at 2.8 (2.8 the day prior as well). Repeat BMP pending. (2) Anemia Current Visit: Yes Status: Acute Code(s): D64.9 - ANEMIA, UNSPECIFIED SNOMED Code(s): 696660833 Comment: Repeat H/H pending for this AM. I suspect iron deficiency as his MCV is low at 70. Will check iron/TIBC/ferritin levels. (3) Thrombocytopenia Current Visit: Yes Status: Acute Code(s): D69.6 - THROMBOCYTOPENIA, UNSPECIFIED SNOMED Code(s): 166462203 Comment: Repeat pending. Pt's INR was also slightly elevated on admission but I am suspicous that may be related to poor nutritional state due to the profuse diarrhea. (4) DVT prophylaxis Current Visit: Yes Status: Acute Code(s): UEZ9015 - SNOMED Code(s): 205709561 Comment: SCDs/ambulation (5) Full code status Current Visit: Yes Status: Acute Code(s): Z78.9 - OTHER SPECIFIED HEALTH STATUS SNOMED Code(s): 888886090
[2016-10-30 08:20] LABS: Hematocrit 29 % (42-52); Hemoglobin 8.8 g/dl (14.0-18.0); Mean Corpuscular HGB Conc 31 g/dl (31-36); Mean Corpuscular Hemoglobin 21 pg (27-31); Mean Platelet Volume 9 um3 (7.4-10.4); Red Blood Count 4.09 10^6/ul (4.0-5.4); Red Cell Distribution Width 18 % (10.5-15); White Blood Count 11.8 10^3/ul (3.5-10.8)
[2016-10-30 08:22] LABS: Comments Flag Yes
[2016-10-30 08:23] LABS: Mean Corpuscular Volume 70 fL (80-94)
[2016-10-30 08:35] LABS: Anion Gap 9 mmol/L (2-11); BUN/Creatinine Ratio 15.1 (8-20); Blood Urea Nitrogen 11 mg/dL (6-24); CO2 Carbon Dioxide 23 mmol/L (22-32); Calcium 7.2 mg/dL (8.6-10.3); Chloride 97 mmol/L (101-111); EGFR African American 157.2 (>60); EGFR Non-African American 122.3 (>60); Glucose 120 mg/dL (70-100); Potassium 2.8 mmol/L (3.5-5.0); Sodium 129 mmol/L (133-145)
[2016-10-30 08:46] LABS: Total Iron Binding Capacity 209 mcg/dL (250-450); Transferrin 149 mg/dL (203-362)
[2016-10-30] MEDS: metroNIDAZOLE IV 500 MG/100ML* 500 MG/100 ML BAG IVPB SCH ×2 (08:54→20:26)
[2016-10-30 09:04] LABS: Ferritin 43.4 ng/mL (24-336)
[2016-10-30] MEDS: PEG 3000 GI LAVAGE* 1 GALLON PO SCH (09:13)
[2016-10-30] MEDS: NS 0.9% 1000 ML* 1,000 ML IV SCH (11:00)
[2016-10-30 14:14] LABS: Iron < 15 ug/dL (50-212)
[2016-10-30] MEDS ORDERED: Meperidine SYRINGE* 50 MG/ML ONE (14:18)
[2016-10-30] MEDS ORDERED: Midazolam* 1 MG/ML 10 ML VIAL (10 MG) ONE (14:18)
[2016-10-30] MEDS ORDERED: methylPREDNISolone SOD SUCC* 40 MG/ML VIAL ONE (16:02)
[2016-10-30] MEDS: methylPREDNISolone SOD SUCC* 40 MG/ML VIAL IV SCH ×2 (16:13→23:59)
[2016-10-30] MEDS: KCL 20 MEQ/100 ML IVPREMIX* 20 MEQ/100 ML BAG IV SCH ×2 (17:35→22:03)
[2016-10-31] MEDS: KCL 20 MEQ/100 ML IVPREMIX* 20 MEQ/100 ML BAG IV SCH (01:30)
[2016-10-31] MEDS: Ciprofloxacin 400MG IVPREMIX(* 400 MG/200 ML BAG IVPB SCH (02:45)
--- NOTE | 2016-10-31 03:40 | PRO ---
DATE: 10/30/16 - ROOM #[id number] REFERRING PHYSICIAN: Tamar Roe DO PROCEDURE: Colonoscopy to mid right colon and biopsy of 4 segments, right proximal descending sigmoid junction from thickened folds and distal sigmoid. INDICATION: This 36-year-old man developed diarrhea in early October. He could not pin it to any particular occurrence and it built up gradually but steadily and he went to the [facility] on Good 10/19/16, with a stomachache. The diagnosis was unclear. The next day, he went to the [facility] where he was told he was probably constipated and given MiraLAX. Two days later, going every half hour, he went back to [facility] and a CT showed colonic thickening and he was told he was likely having colitis. He then came to [facility] on 10/28/16 just feeling weak. His white count was up in the 20s. Stool culture and stool for C. diff had been negative. A year ago, he said he developed bloody stool and went to [facility] where hemorrhoids were suspected and he was given suppositories. He was not given antibiotics and he does not recall antibiotics in the last year other than what he has been given here since admission. His usual bowel habit is once or twice a day. There is no family history of colitis. He is the youngest of six children, working as a housekeeper/laundry assistant at the [employer]. He is and they have a 3-year-old daughter with 5 total children in the household. ENDOSCOPIST: Denilson Mckeon MD MEDICATIONS: Midazolam 4, meperidine 25. FINDINGS: He is a morbidly obese, tall, large-framed, young man, appearing a little tired. His abdomen is obese with panniculus and there is a erythematous umbilical hernia or prominence. It is nontender. His abdomen really is not tender. Perianal inspection is unremarkable. Digital rectal just shows loose mucoid bloody stool. Initial views show a classic erythematous appearance with speckled exudate suggesting ulcerative colitis. Findings are confluent from the anal verge up to the distal sigmoid where a linear rake cultures are seen and then in the upper sigmoid to descending, the folds are impressively swollen with exudate and mucopus. This continues without interruption through the transverse and the scope easily advanced to the right colon and then the angles proved too much and there was no compelling need to persevere. Procedure was stopped at that level. Biopsies were taken from the right colon, proximal descending, in the distal descending, where some folds appeared focally thickened. Final biopsies were taken towards the lower end of the rake ulcer segment. The ulcerations ended in the rectum was just grossly swollen with erythema and stippled granular exudate. IMPRESSION: Pancolitis visually suggestive of ulcerative colitis and that is suggested by the negative cultures and chronic course especially with the brief episode a year ago. Prednisone will be started at 40 mg IV every 8 hours. Addendum: all 4 sites moderate to severe colitis - no granulomas [id number]/[facility] #: [id number] [facility]
[2016-10-31 05:52] LABS: Hematocrit 26 % (42-52); Hemoglobin 8.3 g/dl (14.0-18.0); Mean Corpuscular HGB Conc 32 g/dl (31-36); Mean Corpuscular Hemoglobin 22 pg (27-31); Mean Platelet Volume 9 um3 (7.4-10.4); Red Blood Count 3.71 10^6/ul (4.0-5.4); Red Cell Distribution Width 18 % (10.5-15); White Blood Count 10.4 10^3/ul (3.5-10.8)
[2016-10-31 05:55] LABS: Comments Flag Yes
[2016-10-31 05:56] LABS: Mean Corpuscular Volume 70 fL (80-94)
[2016-10-31 06:09] LABS: Albumin 2.1 g/dL (3.2-5.2); BUN/Creatinine Ratio 15.6 (8-20); C Reactive Protein 99.12 mg/L (< 5.00); Calcium 7.1 mg/dL (8.6-10.3); EGFR Non-African American 142.3 (>60); Globulin 2.6 g/dL (2-4); Total Bilirubin 0.3 mg/dL (0.2-1.0); Total Protein 4.7 g/dL (6.4-8.9)
[2016-10-31] MEDS: HYDROcodone/ACETAMIN 5-325 MG* 1 TAB PO PRN ×3 (08:33→20:48)
[2016-10-31] MEDS: methylPREDNISolone SOD SUCC* 40 MG/ML VIAL IV SCH ×2 (08:35→15:17)
--- NOTE | 2016-10-31 13:51 | PN ---
Subjective Date of Service: 10/31/16 Interval History: Pt is feeling better today. He has had periods of hours when he went without stooling which is an improvement from prior. He denies any significant abdominal pain at this time. Objective Active Medications: Acetaminophen (Tylenol Tab*) 650 mg PO Q4H PRN PRN Reason: FEVER/PAIN Hydrocodone Bitart/Acetaminophen ([place] 5-325 Tab*) 1 tab PO Q4H PRN PRN Reason: PAIN Last Admin: 10/31/16 08:33 Dose: 1 tab Methylprednisolone Sodium Succinate (Solu-Medrol*) 40 mg IV Q8H CLEO Last Admin: 10/31/16 08:35 Dose: 40 mg Morphine Sulfate (Morphine Inj (Syringe)*) 2 mg IV Q4H PRN PRN Reason: PAIN - MILD Ondansetron HCl (Zofran Inj*) 4 mg IV Q6H PRN PRN Reason: NAUSEA Last Admin: 10/28/16 19:38 Dose: 4 mg Vital Signs 10/30/16 10/30/16 10/30/16 15:44 17:20 19:20 Temperature 97.5 F Pulse Rate 89 Respiratory 18 16 16 Rate Blood Pressure 160/99 (mmHg) O2 Sat by Pulse 100 Oximetry 10/30/16 10/30/16 10/30/16 19:21 19:23 22:23 Temperature 97.8 F Pulse Rate 93 Respiratory 17 15 16 Rate Blood Pressure 139/82 (mmHg) O2 Sat by Pulse 99 Oximetry 10/30/16 10/31/16 10/31/16 23:45 00:08 04:02 Temperature 97.7 F 97.5 F Pulse Rate 79 75 Respiratory 16 15 15 Rate Blood Pressure 143/89 146/87 (mmHg) O2 Sat by Pulse 97 98 Oximetry 10/31/16 10/31/16 10/31/16 07:28 07:45 08:00 Temperature 97.4 F 97.4 F Pulse Rate 87 87 Respiratory 16 16 16 Rate Blood Pressure 148/88 (mmHg) O2 Sat by Pulse 100 100 Oximetry 10/31/16 10/31/16 08:33 10:33 Temperature Pulse Rate Respiratory 16 16 Rate Blood Pressure (mmHg) O2 Sat by Pulse Oximetry Oxygen Devices in Use Now: None Appearance: Young male lying in bed, NAD Eyes: No Scleral Icterus Ears/Nose/Mouth/Throat: Mucous Membranes Moist Respiratory: Symmetrical Chest Expansion and Respiratory Effort, Clear to Auscultation Cardiovascular: NL Sounds; No Murmurs; No JVD, RRR, No Edema Abdominal: NL Sounds; No Tenderness; No Distention Extremities: No Clubbing, Cyanosis Skin: No Rash or Ulcers, No Nodules or Sclerosis Neurological: Alert and Oriented x 3 Result Diagrams: 10/31/16 05:08 10/31/16 05:08 Additional Lab and Data: Lab Results 10/28/16 10/28/16 10/28/16 Range/Units 12:35 12:35 12:35 WBC 23.6 H (3.5-10.8) 10^3/ul RBC 5.03 (4.0-5.4) 10^6/ul Hgb 11.0 L (14.0-18.0) g/dl Hct 35 L (42-52) % MCV 70 L (80-94) fL MCH 22 L (27-31) pg MCHC 32 (31-36) g/dl RDW 17 H (10.5-15) % Plt Count 70 L (150-450) 10^3/ul MPV 9 (7.4-10.4) um3 Immature Gran % (Auto) 28 H (0-9) % Neut % (Auto) 88.3 H (38-83) % Lymph % (Auto) 6.7 L (25-47) % Haines % (Auto) 4.6 (1-9) % Eos % (Auto) 0.1 (0-6) % Baso % (Auto) 0.3 (0-2) % Absolute Neuts (auto) 20.8 H (1.5-7.7) 10^3/ul Absolute Lymphs (auto) 1.6 (1.0-4.8) 10^3/ul Absolute Monos (auto) 1.1 H (0-0.8) 10^3/ul Absolute Eos (auto) 0 (0-0.6) 10^3/ul Absolute Basos (auto) 0.1 (0-0.2) 10^3/ul Absolute Nucleated RBC 0.14 10^3/ul Neutrophils % 58 (38-83) % Band Neutrophils % 26 H (0-8) % Lymphocytes % 10 L (25-47) % Reactive Lymphs % 2 (0-6) % Monocytes % 2 (0-13) % Myelocytes % 2 H (0-1) % Nucleated RBC % 0.6 Normal RBC Morphology Not Reportable Polychromasia 2+ Hypochromasia 2+ Microcytosis 1+ Macrocytosis 1+ Hem Pathologist Commnt Pending INR (Anticoag Therapy) 1.30 H (0.89-1.11) APTT 31.7 (26.0-36.3) seconds Sodium 128 L (133-145) mmol/L Potassium 2.8 L (3.5-5.0) mmol/L Chloride 90 L (101-111) mmol/L Carbon Dioxide 26 (22-32) mmol/L Anion Gap 12 H (2-11) mmol/L BUN 15 (6-24) mg/dL Creatinine 0.81 (0.67-1.17) mg/dL Est GFR ( Amer) 139.5 (>60) Est GFR (Non-Af Amer) 108.4 (>60) BUN/Creatinine Ratio 18.5 (8-20) Glucose 178 H (70-100) mg/dL Lactic Acid (0.5-2.0) mmol/L Calcium 7.7 L (8.6-10.3) mg/dL Magnesium 2.2 (1.9-2.7) mg/dL Total Bilirubin 0.50 (0.2-1.0) mg/dL AST 31 (13-39) U/L ALT 46 (7-52) U/L Alkaline Phosphatase 59 (34-104) U/L C-Reactive Protein 164.95 H (< 5.00) mg/L Total Protein 5.6 L (6.4-8.9) g/dL Albumin 2.6 L (3.2-5.2) g/dL Globulin 3.0 (2-4) g/dL Albumin/Globulin Ratio 0.9 L (1-3) Lipase < 10 L (11.0-82.0) U/L Blood Type Antibody Screen 10/28/16 10/28/16 Range/Units 12:35 12:35 WBC (3.5-10.8) 10^3/ul RBC (4.0-5.4) 10^6/ul Hgb (14.0-18.0) g/dl Hct (42-52) % MCV (80-94) fL MCH (27-31) pg MCHC (31-36) g/dl RDW (10.5-15) % Plt Count (150-450) 10^3/ul MPV (7.4-10.4) um3 Immature Gran % (Auto) (0-9) % Neut % (Auto) (38-83) % Lymph % (Auto) (25-47) % Haines % (Auto) (1-9) % Eos % (Auto) (0-6) % Baso % (Auto) (0-2) % Absolute Neuts (auto) (1.5-7.7) 10^3/ul Absolute Lymphs (auto) (1.0-4.8) 10^3/ul Absolute Monos (auto) (0-0.8) 10^3/ul Absolute Eos (auto) (0-0.6) 10^3/ul Absolute Basos (auto) (0-0.2) 10^3/ul Absolute Nucleated RBC 10^3/ul Neutrophils % (38-83) % Band Neutrophils % (0-8) % Lymphocytes % (25-47) % Reactive Lymphs % (0-6) % Monocytes % (0-13) % Myelocytes % (0-1) % Nucleated RBC % Normal RBC Morphology Polychromasia Hypochromasia Microcytosis Macrocytosis Hem Pathologist Commnt INR (Anticoag Therapy) (0.89-1.11) APTT (26.0-36.3) seconds Sodium (133-145) mmol/L Potassium (3.5-5.0) mmol/L Chloride (101-111) mmol/L Carbon Dioxide (22-32) mmol/L Anion Gap (2-11) mmol/L BUN (6-24) mg/dL Creatinine (0.67-1.17) mg/dL Est GFR ( Amer) (>60) Est GFR (Non-Af Amer) (>60) BUN/Creatinine Ratio (8-20) Glucose (70-100) mg/dL Lactic Acid 3.7 H* (0.5-2.0) mmol/L Calcium (8.6-10.3) mg/dL Magnesium (1.9-2.7) mg/dL Total Bilirubin (0.2-1.0) mg/dL AST (13-39) U/L ALT (7-52) U/L Alkaline Phosphatase (34-104) U/L C-Reactive Protein (< 5.00) mg/L Total Protein (6.4-8.9) g/dL Albumin (3.2-5.2) g/dL Globulin (2-4) g/dL Albumin/Globulin Ratio (1-3) Lipase (11.0-82.0) U/L Blood Type A Negative Antibody Screen Negative Microbiology and Other Data: Microbiology 10/28/16 22:00 Rotavirus Antigen - Final Stool Negative Rotavirus Assess/Plan/Problems-Billing Mr Hardin is a 36 yo M who has no significant PMHx who presented to the ER with c/o 10 days of bloody diarrhea. - Patient Problems (1) Ulcerative colitis Current Visit: Yes Status: Acute Code(s): K51.90 - ULCERATIVE COLITIS, UNSPECIFIED, WITHOUT COMPLICATIONS SNOMED Code(s): 47270428 Comment: The patient's colonoscopy yesterday revealed findings c/w ulcerative colitis. The patient has been started on solumedrol 40mg IV q8hr. Dr. Mckeon feels the patient will need at least 3 days of IV steroids prior to d/c home. Will continue to monitor stooling frequency. (2) Anemia Current Visit: Yes Status: Acute Code(s): D64.9 - ANEMIA, UNSPECIFIED SNOMED Code(s): 492513910 Comment: H/H worsened again today. Likely secondary to blood loss and dilutional. The patient is markedly iron deficient. Will likely start ferrous sulfate on d/c. (3) Thrombocytopenia Current Visit: Yes Status: Acute Code(s): D69.6 - THROMBOCYTOPENIA, UNSPECIFIED SNOMED Code(s): 947798753 Comment: Improved plt count today. Continue to follow. INR even more elevated yesterday. Will give vitamin K today-I suspect this is nutritional. (4) DVT prophylaxis Current Visit: Yes Status: Acute Code(s): KPN3797 - SNOMED Code(s): 014184136 Comment: SCDs/ambulation (5) Full code status Current Visit: Yes Status: Acute Code(s): Z78.9 - OTHER SPECIFIED HEALTH STATUS SNOMED Code(s): 175254317
[2016-11-01] MEDS: methylPREDNISolone SOD SUCC* 40 MG/ML VIAL IV SCH ×4 (00:20→23:42)
[2016-11-01] MEDS: HYDROcodone/ACETAMIN 5-325 MG* 1 TAB PO PRN ×4 (04:33→23:47)
[2016-11-01 05:08] LABS: Hematocrit 27 % (42-52); Hemoglobin 8.3 g/dl (14.0-18.0); Mean Corpuscular HGB Conc 31 g/dl (31-36); Mean Corpuscular Hemoglobin 22 pg (27-31); Mean Platelet Volume 8 um3 (7.4-10.4); Red Blood Count 3.81 10^6/ul (4.0-5.4); Red Cell Distribution Width 18 % (10.5-15); White Blood Count 13.1 10^3/ul (3.5-10.8)
[2016-11-01 05:09] LABS: Comments Flag Yes; Mean Corpuscular Volume 71 fL (80-94)
[2016-11-01 05:19] LABS: BUN/Creatinine Ratio 21.3 (8-20); Calcium 7.8 mg/dL (8.6-10.3); EGFR African American 152.4 (>60); EGFR Non-African American 118.5 (>60); Potassium 3.7 mmol/L (3.5-5.0)
--- NOTE | 2016-11-01 09:24 | PN ---
Subjective Date of Service: 11/01/16 Interval History: Pt is feeling well. 2 BMs today-he states there is more substance to the stool. He went he believes about 10 times yesterday which was down from 30-40 previously. No pain. Objective Active Medications: Acetaminophen (Tylenol Tab*) 650 mg PO Q4H PRN PRN Reason: FEVER/PAIN Hydrocodone Bitart/Acetaminophen ([place] 5-325 Tab*) 1 tab PO Q4H PRN PRN Reason: PAIN Last Admin: 11/01/16 08:44 Dose: 1 tab Methylprednisolone Sodium Succinate (Solu-Medrol*) 40 mg IV Q8H CLEO Last Admin: 11/01/16 08:49 Dose: 40 mg Morphine Sulfate (Morphine Inj (Syringe)*) 2 mg IV Q4H PRN PRN Reason: PAIN - MILD Ondansetron HCl (Zofran Inj*) 4 mg IV Q6H PRN PRN Reason: NAUSEA Last Admin: 10/28/16 19:38 Dose: 4 mg Vital Signs 10/31/16 10/31/16 10/31/16 10:33 11:48 14:30 Temperature 97.6 F Pulse Rate 99 Respiratory 16 16 18 Rate Blood Pressure 156/102 (mmHg) O2 Sat by Pulse 98 Oximetry 10/31/16 10/31/16 10/31/16 15:26 16:30 19:34 Temperature 97.3 F 97.8 F Pulse Rate 88 86 Respiratory 17 15 17 Rate Blood Pressure 144/82 141/80 (mmHg) O2 Sat by Pulse 98 98 Oximetry 10/31/16 10/31/16 11/01/16 20:48 22:46 00:12 Temperature 98.0 F Pulse Rate 79 Respiratory 15 13 16 Rate Blood Pressure 141/79 (mmHg) O2 Sat by Pulse 97 Oximetry 11/01/16 11/01/16 11/01/16 03:34 04:33 07:19 Temperature 97.6 F 97.4 F Pulse Rate 80 79 Respiratory 16 15 16 Rate Blood Pressure 149/80 149/83 (mmHg) O2 Sat by Pulse 97 98 Oximetry 11/01/16 11/01/16 11/01/16 08:00 08:33 08:44 Temperature 97.6 F Pulse Rate 74 Respiratory 16 20 Rate Blood Pressure 150/80 (mmHg) O2 Sat by Pulse 98 Oximetry Oxygen Devices in Use Now: None Appearance: Young male sitting up in bed, eating breakfast, NAD Eyes: No Scleral Icterus Ears/Nose/Mouth/Throat: Mucous Membranes Moist Respiratory: Symmetrical Chest Expansion and Respiratory Effort, Clear to Auscultation Cardiovascular: NL Sounds; No Murmurs; No JVD, RRR, No Edema Abdominal: NL Sounds; No Tenderness; No Distention Extremities: No Clubbing, Cyanosis Skin: No Rash or Ulcers, No Nodules or Sclerosis Neurological: Alert and Oriented x 3 Result Diagrams: 11/01/16 04:23 11/01/16 04:23 Additional Lab and Data: Lab Results 10/28/16 10/28/16 10/28/16 Range/Units 12:35 12:35 12:35 WBC 23.6 H (3.5-10.8) 10^3/ul RBC 5.03 (4.0-5.4) 10^6/ul Hgb 11.0 L (14.0-18.0) g/dl Hct 35 L (42-52) % MCV 70 L (80-94) fL MCH 22 L (27-31) pg MCHC 32 (31-36) g/dl RDW 17 H (10.5-15) % Plt Count 70 L (150-450) 10^3/ul MPV 9 (7.4-10.4) um3 Immature Gran % (Auto) 28 H (0-9) % Neut % (Auto) 88.3 H (38-83) % Lymph % (Auto) 6.7 L (25-47) % Geary % (Auto) 4.6 (1-9) % Eos % (Auto) 0.1 (0-6) % Baso % (Auto) 0.3 (0-2) % Absolute Neuts (auto) 20.8 H (1.5-7.7) 10^3/ul Absolute Lymphs (auto) 1.6 (1.0-4.8) 10^3/ul Absolute Monos (auto) 1.1 H (0-0.8) 10^3/ul Absolute Eos (auto) 0 (0-0.6) 10^3/ul Absolute Basos (auto) 0.1 (0-0.2) 10^3/ul Absolute Nucleated RBC 0.14 10^3/ul Neutrophils % 58 (38-83) % Band Neutrophils % 26 H (0-8) % Lymphocytes % 10 L (25-47) % Reactive Lymphs % 2 (0-6) % Monocytes % 2 (0-13) % Myelocytes % 2 H (0-1) % Nucleated RBC % 0.6 Normal RBC Morphology Not Reportable Polychromasia 2+ Hypochromasia 2+ Microcytosis 1+ Macrocytosis 1+ Hem Pathologist Commnt Pending INR (Anticoag Therapy) 1.30 H (0.89-1.11) APTT 31.7 (26.0-36.3) seconds Sodium 128 L (133-145) mmol/L Potassium 2.8 L (3.5-5.0) mmol/L Chloride 90 L (101-111) mmol/L Carbon Dioxide 26 (22-32) mmol/L Anion Gap 12 H (2-11) mmol/L BUN 15 (6-24) mg/dL Creatinine 0.81 (0.67-1.17) mg/dL Est GFR ( Amer) 139.5 (>60) Est GFR (Non-Af Amer) 108.4 (>60) BUN/Creatinine Ratio 18.5 (8-20) Glucose 178 H (70-100) mg/dL Lactic Acid (0.5-2.0) mmol/L Calcium 7.7 L (8.6-10.3) mg/dL Magnesium 2.2 (1.9-2.7) mg/dL Total Bilirubin 0.50 (0.2-1.0) mg/dL AST 31 (13-39) U/L ALT 46 (7-52) U/L Alkaline Phosphatase 59 (34-104) U/L C-Reactive Protein 164.95 H (< 5.00) mg/L Total Protein 5.6 L (6.4-8.9) g/dL Albumin 2.6 L (3.2-5.2) g/dL Globulin 3.0 (2-4) g/dL Albumin/Globulin Ratio 0.9 L (1-3) Lipase < 10 L (11.0-82.0) U/L Blood Type Antibody Screen 10/28/16 10/28/16 Range/Units 12:35 12:35 WBC (3.5-10.8) 10^3/ul RBC (4.0-5.4) 10^6/ul Hgb (14.0-18.0) g/dl Hct (42-52) % MCV (80-94) fL MCH (27-31) pg MCHC (31-36) g/dl RDW (10.5-15) % Plt Count (150-450) 10^3/ul MPV (7.4-10.4) um3 Immature Gran % (Auto) (0-9) % Neut % (Auto) (38-83) % Lymph % (Auto) (25-47) % Geary % (Auto) (1-9) % Eos % (Auto) (0-6) % Baso % (Auto) (0-2) % Absolute Neuts (auto) (1.5-7.7) 10^3/ul Absolute Lymphs (auto) (1.0-4.8) 10^3/ul Absolute Monos (auto) (0-0.8) 10^3/ul Absolute Eos (auto) (0-0.6) 10^3/ul Absolute Basos (auto) (0-0.2) 10^3/ul Absolute Nucleated RBC 10^3/ul Neutrophils % (38-83) % Band Neutrophils % (0-8) % Lymphocytes % (25-47) % Reactive Lymphs % (0-6) % Monocytes % (0-13) % Myelocytes % (0-1) % Nucleated RBC % Normal RBC Morphology Polychromasia Hypochromasia Microcytosis Macrocytosis Hem Pathologist Commnt INR (Anticoag Therapy) (0.89-1.11) APTT (26.0-36.3) seconds Sodium (133-145) mmol/L Potassium (3.5-5.0) mmol/L Chloride (101-111) mmol/L Carbon Dioxide (22-32) mmol/L Anion Gap (2-11) mmol/L BUN (6-24) mg/dL Creatinine (0.67-1.17) mg/dL Est GFR ( Amer) (>60) Est GFR (Non-Af Amer) (>60) BUN/Creatinine Ratio (8-20) Glucose (70-100) mg/dL Lactic Acid 3.7 H* (0.5-2.0) mmol/L Calcium (8.6-10.3) mg/dL Magnesium (1.9-2.7) mg/dL Total Bilirubin (0.2-1.0) mg/dL AST (13-39) U/L ALT (7-52) U/L Alkaline Phosphatase (34-104) U/L C-Reactive Protein (< 5.00) mg/L Total Protein (6.4-8.9) g/dL Albumin (3.2-5.2) g/dL Globulin (2-4) g/dL Albumin/Globulin Ratio (1-3) Lipase (11.0-82.0) U/L Blood Type A Negative Antibody Screen Negative Microbiology and Other Data: Microbiology 10/28/16 22:00 Rotavirus Antigen - Final Stool Negative Rotavirus Assess/Plan/Problems-Billing Mr Hardin is a 36 yo M who has no significant PMHx who presented to the ER with c/o 10 days of bloody diarrhea. - Patient Problems (1) Ulcerative colitis Current Visit: Yes Status: Acute Code(s): K51.90 - ULCERATIVE COLITIS, UNSPECIFIED, WITHOUT COMPLICATIONS SNOMED Code(s): 95847129 Comment: The patient has been improving over the last 24hr. Much less stooling. No pain. He will continue on solumedrol 40mg IV q8hr. Will need recommendations from GI about when to d/c and what meds to send home on. (2) Anemia Current Visit: Yes Status: Acute Code(s): D64.9 - ANEMIA, UNSPECIFIED SNOMED Code(s): 935337538 Comment: H/H stable today. Follow intermittently. Start ferrous sulfate on d/ c. (3) Thrombocytopenia Current Visit: Yes Status: Acute Code(s): D69.6 - THROMBOCYTOPENIA, UNSPECIFIED SNOMED Code(s): 316669992 Comment: Resolved. Follow intermittently. (4) DVT prophylaxis Current Visit: Yes Status: Acute Code(s): GCL9062 - SNOMED Code(s): 555619570 Comment: SCDs/ambulation (5) Full code status Current Visit: Yes Status: Acute Code(s): Z78.9 - OTHER SPECIFIED HEALTH STATUS SNOMED Code(s): 626453133
[2016-11-02] MEDS: HYDROcodone/ACETAMIN 5-325 MG* 1 TAB PO PRN ×3 (08:02→21:37)
[2016-11-02] MEDS: methylPREDNISolone SOD SUCC* 40 MG/ML VIAL IV SCH ×2 (08:02→15:32)
--- NOTE | 2016-11-02 15:45 | PN ---
Subjective Date of Service: 11/02/16 Interval History: Patient states he has had 4 BM today, the best day by far in the past 2 weeks. Appetitie good. Pain control OK with oral hydrocodone/APAP Objective Active Medications: Acetaminophen (Tylenol Tab*) 650 mg PO Q4H PRN PRN Reason: FEVER/PAIN Methylprednisolone Sodium Succinate (Solu-Medrol*) 40 mg IV Q8H [facility] Stop: 11/02/16 17:00 Last Admin: 11/02/16 15:32 Dose: 40 mg Morphine Sulfate (Morphine Inj (Syringe)*) 2 mg IV Q4H PRN PRN Reason: PAIN - MILD Ondansetron HCl (Zofran Inj*) 4 mg IV Q6H PRN PRN Reason: NAUSEA Last Admin: 10/28/16 19:38 Dose: 4 mg Prednisone (Deltasone Tab*) 30 mg PO TID [facility] Vital Signs 11/01/16 11/01/16 11/01/16 15:46 16:05 18:05 Temperature Pulse Rate 81 Respiratory 20 18 18 Rate Blood Pressure 152/81 (mmHg) O2 Sat by Pulse 99 Oximetry 11/01/16 11/01/16 11/01/16 20:36 21:02 23:47 Temperature 98.2 F Pulse Rate 77 Respiratory 18 16 18 Rate Blood Pressure 135/80 (mmHg) O2 Sat by Pulse 98 Oximetry 11/01/16 11/02/16 11/02/16 23:48 01:47 03:32 Temperature 97.9 F 98.0 F Pulse Rate 79 70 Respiratory 16 16 16 Rate Blood Pressure 146/83 148/89 (mmHg) O2 Sat by Pulse 98 99 Oximetry 11/02/16 11/02/16 11/02/16 08:00 08:02 08:11 Temperature 97.4 F Pulse Rate 71 Respiratory 16 16 18 Rate Blood Pressure 145/91 (mmHg) O2 Sat by Pulse 99 Oximetry 11/02/16 11/02/16 11/02/16 09:57 12:09 14:39 Temperature 98.1 F Pulse Rate 87 Respiratory 16 17 16 Rate Blood Pressure 150/84 (mmHg) O2 Sat by Pulse 99 Oximetry 11/02/16 15:31 Temperature 97.4 F Pulse Rate 95 Respiratory 18 Rate Blood Pressure 151/79 (mmHg) O2 Sat by Pulse 99 Oximetry Oxygen Devices in Use Now: None Appearance: Alert, supine in bed. In good spirits. Looks comfortable. Neck: NL Appearance and Movements; NL JVP, No Thyroid Enlargement, Masses Respiratory: Symmetrical Chest Expansion and Respiratory Effort, Clear to Auscultation, Clear to Percussion Cardiovascular: NL Sounds; No Murmurs; No JVD, RRR, No Edema, - Abdominal: NL Sounds; No Tenderness; No Distention, No Hepatosplenomegaly, - Skin: No Rash or Ulcers, No Nodules or Sclerosis, - Neurological: Alert and Oriented x 3, NL Sensation Result Diagrams: 11/01/16 04:23 11/01/16 04:23 Additional Lab and Data: Lab Results 10/28/16 10/28/16 10/28/16 Range/Units 12:35 12:35 12:35 WBC 23.6 H (3.5-10.8) 10^3/ul RBC 5.03 (4.0-5.4) 10^6/ul Hgb 11.0 L (14.0-18.0) g/dl Hct 35 L (42-52) % MCV 70 L (80-94) fL MCH 22 L (27-31) pg MCHC 32 (31-36) g/dl RDW 17 H (10.5-15) % Plt Count 70 L (150-450) 10^3/ul MPV 9 (7.4-10.4) um3 Immature Gran % (Auto) 28 H (0-9) % Neut % (Auto) 88.3 H (38-83) % Lymph % (Auto) 6.7 L (25-47) % Forrest % (Auto) 4.6 (1-9) % Eos % (Auto) 0.1 (0-6) % Baso % (Auto) 0.3 (0-2) % Absolute Neuts (auto) 20.8 H (1.5-7.7) 10^3/ul Absolute Lymphs (auto) 1.6 (1.0-4.8) 10^3/ul Absolute Monos (auto) 1.1 H (0-0.8) 10^3/ul Absolute Eos (auto) 0 (0-0.6) 10^3/ul Absolute Basos (auto) 0.1 (0-0.2) 10^3/ul Absolute Nucleated RBC 0.14 10^3/ul Neutrophils % 58 (38-83) % Band Neutrophils % 26 H (0-8) % Lymphocytes % 10 L (25-47) % Reactive Lymphs % 2 (0-6) % Monocytes % 2 (0-13) % Myelocytes % 2 H (0-1) % Nucleated RBC % 0.6 Normal RBC Morphology Not Reportable Polychromasia 2+ Hypochromasia 2+ Microcytosis 1+ Macrocytosis 1+ Hem Pathologist Commnt Pending INR (Anticoag Therapy) 1.30 H (0.89-1.11) APTT 31.7 (26.0-36.3) seconds Sodium 128 L (133-145) mmol/L Potassium 2.8 L (3.5-5.0) mmol/L Chloride 90 L (101-111) mmol/L Carbon Dioxide 26 (22-32) mmol/L Anion Gap 12 H (2-11) mmol/L BUN 15 (6-24) mg/dL Creatinine 0.81 (0.67-1.17) mg/dL Est GFR ( Amer) 139.5 (>60) Est GFR (Non-Af Amer) 108.4 (>60) BUN/Creatinine Ratio 18.5 (8-20) Glucose 178 H (70-100) mg/dL Lactic Acid (0.5-2.0) mmol/L Calcium 7.7 L (8.6-10.3) mg/dL Magnesium 2.2 (1.9-2.7) mg/dL Total Bilirubin 0.50 (0.2-1.0) mg/dL AST 31 (13-39) U/L ALT 46 (7-52) U/L Alkaline Phosphatase 59 (34-104) U/L C-Reactive Protein 164.95 H (< 5.00) mg/L Total Protein 5.6 L (6.4-8.9) g/dL Albumin 2.6 L (3.2-5.2) g/dL Globulin 3.0 (2-4) g/dL Albumin/Globulin Ratio 0.9 L (1-3) Lipase < 10 L (11.0-82.0) U/L Blood Type Antibody Screen 10/28/16 10/28/16 Range/Units 12:35 12:35 WBC (3.5-10.8) 10^3/ul RBC (4.0-5.4) 10^6/ul Hgb (14.0-18.0) g/dl Hct (42-52) % MCV (80-94) fL MCH (27-31) pg MCHC (31-36) g/dl RDW (10.5-15) % Plt Count (150-450) 10^3/ul MPV (7.4-10.4) um3 Immature Gran % (Auto) (0-9) % Neut % (Auto) (38-83) % Lymph % (Auto) (25-47) % Forrest % (Auto) (1-9) % Eos % (Auto) (0-6) % Baso % (Auto) (0-2) % Absolute Neuts (auto) (1.5-7.7) 10^3/ul Absolute Lymphs (auto) (1.0-4.8) 10^3/ul Absolute Monos (auto) (0-0.8) 10^3/ul Absolute Eos (auto) (0-0.6) 10^3/ul Absolute Basos (auto) (0-0.2) 10^3/ul Absolute Nucleated RBC 10^3/ul Neutrophils % (38-83) % Band Neutrophils % (0-8) % Lymphocytes % (25-47) % Reactive Lymphs % (0-6) % Monocytes % (0-13) % Myelocytes % (0-1) % Nucleated RBC % Normal RBC Morphology Polychromasia Hypochromasia Microcytosis Macrocytosis Hem Pathologist Commnt INR (Anticoag Therapy) (0.89-1.11) APTT (26.0-36.3) seconds Sodium (133-145) mmol/L Potassium (3.5-5.0) mmol/L Chloride (101-111) mmol/L Carbon Dioxide (22-32) mmol/L Anion Gap (2-11) mmol/L BUN (6-24) mg/dL Creatinine (0.67-1.17) mg/dL Est GFR ( Amer) (>60) Est GFR (Non-Af Amer) (>60) BUN/Creatinine Ratio (8-20) Glucose (70-100) mg/dL Lactic Acid 3.7 H* (0.5-2.0) mmol/L Calcium (8.6-10.3) mg/dL Magnesium (1.9-2.7) mg/dL Total Bilirubin (0.2-1.0) mg/dL AST (13-39) U/L ALT (7-52) U/L Alkaline Phosphatase (34-104) U/L C-Reactive Protein (< 5.00) mg/L Total Protein (6.4-8.9) g/dL Albumin (3.2-5.2) g/dL Globulin (2-4) g/dL Albumin/Globulin Ratio (1-3) Lipase (11.0-82.0) U/L Blood Type A Negative Antibody Screen Negative Microbiology and Other Data: Microbiology 10/28/16 22:00 Rotavirus Antigen - Final Stool Negative Rotavirus Assess/Plan/Problems-Billing Mr Hardin is a 36 yo M who has no significant PMHx who presented to the ER with c/o 10 days of bloody diarrhea. - Patient Problems (1) Ulcerative colitis Current Visit: Yes Status: Acute Code(s): K51.90 - ULCERATIVE COLITIS, UNSPECIFIED, WITHOUT COMPLICATIONS SNOMED Code(s): 79211016 Comment: Changing to prednisone 30 mg tid 2100 hrs 11/02. Consider discharge 11/03. (2) Thrombocytopenia Current Visit: Yes Status: Acute Code(s): D69.6 - THROMBOCYTOPENIA, UNSPECIFIED SNOMED Code(s): 882513415 Comment: Resolved. Origin obscure, ? any relation to UC.
[2016-11-02] MEDS: predniSONE TAB* 10 MG PO SCH (21:37)
[2016-11-03] MEDS: HYDROcodone/ACETAMIN 5-325 MG* 1 TAB PO PRN ×2 (01:49→07:37)
[2016-11-03 05:04] LABS: Urine Bilirubin Negative (Negative); Urine Glucose Negative (Negative); Urine Nitrite Negative (Negative)
[2016-11-03 07:11] LABS: Hematocrit 29 % (42-52); Hemoglobin 8.9 g/dl (14.0-18.0); Mean Corpuscular HGB Conc 30 g/dl (31-36); Mean Corpuscular Hemoglobin 22 pg (27-31); Mean Corpuscular Volume 71 fL (80-94); Mean Platelet Volume 7 um3 (7.4-10.4); Red Blood Count 4.12 10^6/ul (4.0-5.4); Red Cell Distribution Width 19 % (10.5-15); White Blood Count 14.8 10^3/ul (3.5-10.8)
[2016-11-03 07:21] LABS: Comments Flag Yes
[2016-11-03 07:28] LABS: Albumin 2.4 g/dL (3.2-5.2); BUN/Creatinine Ratio 24.6 (8-20); C Reactive Protein 4.9 mg/L (< 5.00); Calcium 7.9 mg/dL (8.6-10.3); EGFR African American 179.8 (>60); EGFR Non-African American 139.8 (>60); Globulin 2.9 g/dL (2-4); Potassium 4.3 mmol/L (3.5-5.0); Total Bilirubin 0.3 mg/dL (0.2-1.0); Total Protein 5.3 g/dL (6.4-8.9)
[2016-11-03] MEDS: predniSONE TAB* 10 MG PO SCH (07:38)
[2016-11-03 07:42] VITALS: BP 160/72
--- NOTE | 2016-11-03 08:50 | PN ---
"Progress Note - Progress Note Note: Confidential Drug Utilization Report Search Terms: antonio geovanny, 1980 Search Date: 11/03/2016 08:48:09 AM This report was requested by: Marin Graves | Reference #: [id number] There are no results for the search terms that you entered."
--- NOTE | 2016-11-03 09:07 | PN ---
Progress Note - Progress Note Note: Time spent on discharge 45 minutes.
--- NOTE | 2016-11-03 12:47 | DS ---
CC: Dr. Mckeon DISCHARGE SUMMARY: DATE OF ADMISSION: DATE OF DISCHARGE: 11/03/16 HISTORY OF PRESENT ILLNESS: This 36-year-old man presented with complaints of diarrhea for several weeks, it was getting worse and he was having over 30 bowel movements a day. CT scan showed colonic thickening. He underwent colonoscopy, this showed pancolitis. Multiple biopsies were taken. Ther e was moderate-to- severe colitis on all specimens. There was no dysplasia or atypia noted on the b iopsy specimens. The patient was started on an intravenous methylprednisolone. He had an excellent response to this, marked decrease in his diarrhea, some abdominal pain, which was easily controlled with hydrocodone/ acetaminophen. I note he had a dramatic fall in the CRP from over 160 to 4.9. FINAL DIAGNOSIS: Ulcerative colitis. DISCHARGE MEDICATIONS: 1. Hydrocodone/acetaminophen 5/325 one every 4 hours p.r.n. 2. Prednisone 30 mg t.i.d. 3. Ibuprofen 800 mg b.i.d. p.r.n. [id number]/[facility] #: [id number]
== END 2016-11-03 10:15 | disposition home or self-care (01) | DRG 422 ==
LOC: ED 12:17 → SSU 14:48
PROVIDERS: ADMIT Hospitalist; ATTEND Internal Medicine
PROC: 0DBM8ZX Excision of Descending Colon, Via Natural or Artificial Opening Endoscopic, Diagnostic (ICD-10-PCS; principal; 2016-10-30)
PROC: 0DBN8ZX Excision of Sigmoid Colon, Via Natural or Artificial Opening Endoscopic, Diagnostic (ICD-10-PCS; 2016-10-30)
DX: E87.2 Acidosis (principal); E86.0 Dehydration; D69.6 Thrombocytopenia, unspecified; F17.210 Nicotine dependence, cigarettes, uncomplicated; Z79.1 Long term (current) use of non-steroidal anti-inflammatories (NSAID); Z82.5 Family history of asthma and other chronic lower respiratory diseases
CPT/HCPCS: 36415; 71010; 74177; 80048; 80053; 81003; 82270; 82728; 83540; 83550; 83605; 83630; 83690; 83735; 85014; 85018; 85025; 85027; 85060; 85610; 85730; 86140; 86850; 86900; 86901; 87040; 87045; 87046; 87177; 87209; 87328; 87329; 87425; 87449; 87493; 87899; 88305; 93005; A9270-GY; J0744; J2250; J2405; J2920; J3480; J7512; Q9967

== ENCOUNTER 2016-11-09 09:57 | Inpatient (IN) | payer BC ==
[2016-11-09 13:52] LABS: Urine Bilirubin Negative (Negative); Urine Glucose Negative (Negative); Urine Nitrite Negative (Negative)
[2016-11-09 14:01] LABS: Hematocrit 24 % (42-52); Hemoglobin 7.5 g/dl (14.0-18.0); Mean Corpuscular HGB Conc 31 g/dl (31-36); Mean Corpuscular Hemoglobin 21 pg (27-31); Mean Platelet Volume 7 um3 (7.4-10.4); Red Cell Distribution Width 19 % (10.5-15); White Blood Count 10.3 10^3/ul (3.5-10.8)
[2016-11-09 14:03] LABS: ALT 46 U/L (7-52); AST 17 U/L (13-39); Albumin 2.4 g/dL (3.2-5.2); Alkaline Phosphatase 46 U/L (34-104); Anion Gap 6 mmol/L (2-11); BUN/Creatinine Ratio 20.3 (8-20); Blood Urea Nitrogen 13 mg/dL (6-24); C Reactive Protein 68.34 mg/L (< 5.00); CO2 Carbon Dioxide 29 mmol/L (22-32); Calcium 8.2 mg/dL (8.6-10.3); Chloride 99 mmol/L (101-111); Comments Flag Yes; EGFR Non-African American 142.3 (>60); Globulin 3.1 g/dL (2-4); Glucose 112 mg/dL (70-100); Lipase < 10 U/L (11.0-82.0); Mean Corpuscular Volume 70 fL (80-94); Potassium 3.9 mmol/L (3.5-5.0); Sodium 134 mmol/L (133-145); Total Protein 5.5 g/dL (6.4-8.9)
[2016-11-09] MEDS ORDERED: methylPREDNISolone SOD 40 MG* 1 ML VIAL IV ONE ×2 (14:52→14:56)
[2016-11-09] MEDS ORDERED: Ibuprofen TAB* 800 MG PO PRN (15:26)
[2016-11-09] MEDS: HYDROcodone/ACETAMIN 5-325 MG* 1 TAB PO PRN (15:47)
--- NOTE | 2016-11-09 15:56 | ADMNOTE ---
Subjective Date of Service: 11/09/16 Interval History: ADMISSION HISTORY AND PHYSICAL EXAM: Allergies Allergy/AdvReac Type Severity Reaction Status Date / Time No Known Allergies Allergy Verified 10/28/16 12:20 Home Medications Medication Instructions Recorded Confirmed Type Ibuprofen TAB* [Motrin TAB* 800 MG] 800 mg PO BID PRN 11/07/15 11/09/16 History HYDROcodone/ACETAMIN 5-325 MG* 1 tab PO Q4H PRN #20 tab MDD 4 11/03/16 11/09/16 Rx [[place] 5-325 TAB*] predniSONE TAB* [Deltasone TAB*] 30 mg PO TID #270 tab 11/03/16 11/09/16 Rx HPI: Patient was discharged 6 days ago on prednisone 30 mg tid for newly dx'd UC. He was OK for 2 days then had increasing diarrhea with blood, abd pain. He called Dr. Mckeon and as directed took 60 mg prednisone last evening and 50 mg this AM with no improvement. He has noticed some pedal edema, anorexia and weight loss. Pain control at home with hydrocodone/APAP is OK. Family History: Findings - Mother had COPD. No family hx IBD. Social History: Findings - , is his SDM. Last smoked a few months ago. No alcohol abuse. Past Medical History: Findings - Other than UC, no significant PMH. Review of Systems - Review of Systems Constitutional Symptoms: Positive: Weight Loss - unqunatified Dermatology: Positive: Normal HEENT: Positive: Normal Eyes: Positive: Normal Thyroid: Positive: Normal Pulmonary: Positive: Normal Cardiology: Positive: Normal Gastroenterology: Positive: Abdominal Pain, Diarrhea, Blood in Stools Genital - Urinary: Positive: Normal Endocrinology: Positive: Normal Neurology: Positive: Normal Psychiatry: Positive: Normal Allergic/Immunologic: Negative: Hx Anaphylaxis, Hx Angioedema, Hx Environmental, Hx Seasonal, Athsma, Hx HIV, Immunocompromise, Swollen Glands LymphNodes, Other Objective Active Medications: Hydrocodone Bitart/Acetaminophen ([place] 5-325 Tab*) 1 tab PO Q4H PRN PRN Reason: PAIN Last Admin: 11/09/16 15:47 Dose: 1 tab Ibuprofen (Motrin Tab*) 800 mg PO BID PRN PRN Reason: PAIN Methylprednisolone Sodium Succinate (Solu-Medrol*) 40 mg IV Q8H [facility] Vital Signs 11/09/16 15:47 Respiratory 18 Rate Oxygen Devices in Use Now: None Appearance: Alert, supine on ED stretcher. Looks fatigued/discouraged. Eyes: No Scleral Icterus Ears/Nose/Mouth/Throat: Clear Oropharnyx, Mucous Membranes Moist Neck: NL Appearance and Movements; NL JVP, No Thyroid Enlargement, Masses Respiratory: Symmetrical Chest Expansion and Respiratory Effort, Clear to Auscultation, Clear to Percussion Cardiovascular: RRR Abdominal: No Hepatosplenomegaly, - - Obese, soft. Mild diffuse tenderness. Nl BS. Extremities: No Clubbing, Cyanosis, - - 1+ pitting edema BL Skin: No Rash or Ulcers, No Nodules or Sclerosis, - Neurological: Alert and Oriented x 3, NL Sensation Result Diagrams: 11/09/16 13:30 11/09/16 13:30 Assess/Plan/Problems-Billing Assessment: - Patient Problems (1) Ulcerative colitis Current Visit: No Status: Acute Code(s): K51.90 - ULCERATIVE COLITIS, UNSPECIFIED, WITHOUT COMPLICATIONS SNOMED Code(s): 35913670 Comment: Methylprednisolone 40 mg IV q 8 hr, first 2 doses 6 hrs apart. This dose was very effective the first admission. Discussed with Dr. Lara, consider infliximab tx.
[2016-11-09] MEDS ORDERED: Tuberculin PPD* 5 TU/0.1 ML 0.1 ML INTRADERM ONE (18:00)
[2016-11-09] MEDS ORDERED: PPD Reading RESULTS NOTE SCH (18:00)
[2016-11-09] MEDS ORDERED: [UNRECOGNIZED DRUG - OTHER] INTRADERM ONE (18:00)
[2016-11-09] MEDS ORDERED: methylPREDNISolone SOD 40 MG* 1 ML VIAL IV SCH ×2 (20:00→22:00)
--- NOTE | 2016-11-09 20:49 | CONS ---
CONSULTATION NOTE: DATE OF CONSULT: 11/09/16 REASON FOR CONSULTATION: Voluminous diarrhea, rectal bleeding, recent diagnosis of ulcerative colitis. NARRATIVE: Mr. Hardin is a previously healthy 36-year-old gentleman who was admitted in October 2016 after approximately a month of bloody diarrhea. His evaluation on presentation here initially was notable for a leukocytosis, a hemoglobin of 9.3 and albumin of 2.6. Studies have included at that admission, a CT scan of the abdomen showing submucosal edema throughout the colon. Stool passes were negative for Rotavirus, Cryptosporidium, Giardia, Shigella and C. difficile. He eventually underwent a colonoscopy to the mid right colon on 10/28 which demonstrated pancolitis suggestive of ulcerative colitis. Biopsies were obtained which confirmed that diagnosis. No report of viral inclusion bodies. He was started on steroids which helped some, his stool frequency went down from perhaps 15 a day to 10 a day and he was eventually discharged on prednisone 30 mg a day. Soon thereafter, his stool frequency increased again. He was having blood per rectum as well, but denied any significant abdominal pain. He contacted Dr. Mckeon yesterday who told him to increase his prednisone to 60 mg a day. Despite that, his symptoms continued and he therefore presented to the emergency room. On arrival here, he was tachycardic , normotensive and afebrile. Laboratory data from today include a hemoglobin of 7.5 with an MCV of 70, platelet count of 496,000. C- reactive protein is 68.34, albumin of 2.4. He has not been using NSAIDs. He has not been placed on any antibiotics. He describes some pedal edema, but is otherwise having no other systemic symptoms. He denies fevers, but does have an occasional chill. Prior to about 2 months ago, he had normal bowel function, although about a year ago had a brief episode of rectal bleeding that was not investigated. There is no report of travel, but he is a former smoker having quit fairly recently. He has no family history of inflammatory bowel disease. REVIEW OF SYSTEMS: There has been no skin rashes, oral lesions or jaundice. PHYSICAL EXAM: He is an obese gentleman appearing comfortable and in no acute distress. Temperature is 98.2, blood pressure is 167/84, heart rate is 81 and regular. He is mildly pale. He is anicteric. He appears somewhat dehydrated. Cardiac exam reveals a regular rhythm without murmur. Abdomen is soft without distention. There is no dorie tenderness. Bowel sounds are hyperactive in all quadrants. There is no organomegaly. Extremities reveal some trace edema. IMPRESSION: A 36-year-old gentleman with a new diagnosis of panulcerative colitis which has not responded completely to steroid therapy. At its best, his stool frequency went down to 10 movements a day. Therefore, I would classify him as steroid refractory. We discussed this in great detail. I recommended a biologic agent and discussed with him Remicade, side effects including allergic reaction, suppression of the immune system. He will be agreeable with that. We will check PPD, control, viral serologies and a C. difficile toxin. If all unremarkable, I would recommend within 48 hours to start him on Remicade. I will speak to pharmacy to get approval for that. At the current time, IV steroids is prudent. [id number]/CPS #: [id number] MTDD
[2016-11-09] MEDS: methylPREDNISolone SOD 40 MG* 1 ML VIAL IV SCH ×2 (21:29→23:05)
--- NOTE | 2016-11-09 23:30 | ED ---
Amaury Campbell Benjamin, scribed for Kyle Cruz MD on 11/09/16 at 1331 . Abdominal Pain/Male - HPI Summary HPI Summary: 36yo male who is c/o melena for the past few weeks. Pt was admitted last week for the same problem and had colonoscopy done and was dxed with colitis. Pt reports gassy stomach, cramping abdominal pain that worsens when pt had BM. - History of Current Complaint Chief Complaint: EDAbdPain Stated Complaint: BLOOD IN STOOL Time Seen by Provider: 11/09/16 13:07 Hx Obtained From: Patient Onset/Duration: Gradual Onset, Lasting Weeks - few weeks, Still Present Timing: Intermittent, Lasting Weeks - few weeks Severity Initially: Mild Severity Currently: Mild Pain Intensity: 2 Pain Scale Used: 0-10 Numeric Location: Diffuse Radiates: No Character: Cramping Aggravating Factor(s): Other: - BM Alleviating Factor(s): Nothing Associated Signs And Symptoms: Positive: Blood in Stool, Other - gassy stomach - Allergies/Home Medications Allergies/Adverse Reactions: Allergies Allergy/AdvReac Type Severity Reaction Status Date / Time No Known Allergies Allergy Verified 10/28/16 12:20 PMH/Surg Hx/FS Hx/Imm Hx Endocrine/Hematology History: Denies: Hx Anticoagulant Therapy, Hx Diabetes, Hx Thyroid Disease Cardiovascular History: Denies: Hx Congestive Heart Failure, Hx Deep Vein Thrombosis, Hx Hypertension , Hx Myocardial Infarction, Hx Pacemaker/ICD Respiratory History: Denies: Hx Asthma, Hx Chronic Obstructive Pulmonary Disease (COPD), Hx Lung Cancer, Hx Pneumonia, Hx Pulmonary Embolism GI History: Reports: Hx Gastrointestinal Bleed - See HPI. HE had this before., Other GI Disorders - pt states nothing diagnosed but has had "issues" similar to current admissi Denies: Hx Gall Bladder Disease, Hx Ulcer, Hx Urosepsis History: Denies: Hx Kidney Stones, Hx Renal Disease Sensory History: Reports: Hx Contacts or Glasses Denies: Hx Hearing Aid Opthamlomology History: Reports: Hx Contacts or Glasses Neurological History: Denies: Hx Dementia, Hx Migraine, Hx Seizures, Hx Transient Ischemic Attacks (TIA) Psychiatric History: Denies: Hx Anxiety, Hx Depression, Hx Schizophrenia, Hx Bipolar Disorder - Immunization History Date of Tetanus Vaccine: UTD Date of Influenza Vaccine: NO Infectious Disease History: No Infectious Disease History: Denies: Traveled Outside the [place] in Last 30 Days - Family History Known Family History: Negative: Cardiac Disease, Hypertension - Social History Occupation: Employed Full-time Lives: Alone Alcohol Use: Rare Substance Use Type: Reports: None Smoking Status (MU): Former Smoker Review of Systems Constitutional: Negative Eyes: Negative ENT: Negative Cardiovascular: Negative Respiratory: Negative Positive: Abdominal Pain, Other - blood in stool Genitourinary: Negative Positive: no symptoms reported Musculoskeletal: Negative Skin: Negative Neurological: Negative Psychological: Normal All Other Systems Reviewed And Are Negative: Yes Physical Exam Triage Information Reviewed: Yes Vital Signs On Initial Exam: Initial Vitals Temp Pulse Resp BP Pulse Ox 97.6 F 110 20 160/94 100 11/09/16 10:08 11/09/16 10:08 11/09/16 10:08 11/09/16 10:08 11/09/16 10:08 Vital Signs Reviewed: Yes Appearance: Positive: Well-Appearing, Well-Nourished, Pain Distress - mild pain distress Skin: Positive: Warm, Skin Color Reflects Adequate Perfusion, Dry Head/Face: Positive: Normal Head/Face Inspection Eyes: Positive: Normal ENT: Positive: Normal ENT inspection Neck: Positive: Supple, Nontender Respiratory/Lung Sounds: Positive: Clear to Auscultation, Breath Sounds Present Cardiovascular: Positive: RRR Abdomen Description: Positive: No Organomegaly, Soft, Other: - diffuse abd tenderness Bowel Sounds: Positive: Hypoactive Musculoskeletal: Positive: Normal, Strength/ROM Intact Neurological: Positive: Normal, Sensory/Motor Intact, Alert, Oriented to Person Place, Time, CN Intact II-III Psychiatric: Positive: Normal, Affect/Mood Appropriate - Prole Coma Scale Coma Scale Total: 15 Diagnostics - Vital Signs Vital Signs Temp Pulse Resp BP Pulse Ox 11/09/16 13:11 98.2 F 82 20 181/98 100 11/09/16 10:10 96.9 F 112 20 160/94 100 11/09/16 10:08 97.6 F 110 20 160/94 100 - Laboratory Lab Results: Lab Results 11/09/16 11/09/16 11/09/16 Range/Units 13:30 13:30 13:30 WBC 10.3 (3.5-10.8) 10^3/ul RBC 3.50 L (4.0-5.4) 10^6/ul Hgb 7.5 L (14.0-18.0) g/dl Hct 24 L (42-52) % MCV 70 L (80-94) fL MCH 21 L (27-31) pg MCHC 31 (31-36) g/dl RDW 19 H (10.5-15) % Plt Count 496 H D (150-450) 10^3/ul MPV 7 L (7.4-10.4) um3 Neut % (Auto) 81.2 (38-83) % Lymph % (Auto) 12.4 L (25-47) % [place] % (Auto) 6.2 (1-9) % Eos % (Auto) 0 (0-6) % Baso % (Auto) 0.2 (0-2) % Absolute Neuts (auto) 8.4 H (1.5-7.7) 10^3/ul Absolute Lymphs (auto) 1.3 (1.0-4.8) 10^3/ul Absolute Monos (auto) 0.6 (0-0.8) 10^3/ul Absolute Eos (auto) 0 (0-0.6) 10^3/ul Absolute Basos (auto) 0 (0-0.2) 10^3/ul Absolute Nucleated RBC 0.01 10^3/ul Nucleated RBC % 0.1 INR (Anticoag Therapy) (0.89-1.11) Sodium 134 (133-145) mmol/L Potassium 3.9 (3.5-5.0) mmol/L Chloride 99 L (101-111) mmol/L Carbon Dioxide 29 (22-32) mmol/L Anion Gap 6 (2-11) mmol/L BUN 13 (6-24) mg/dL Creatinine 0.64 L (0.67-1.17) mg/dL Est GFR ( Amer) 183.0 (>60) Est GFR (Non-Af Amer) 142.3 (>60) BUN/Creatinine Ratio 20.3 H (8-20) Glucose 112 H (70-100) mg/dL Lactic Acid (0.5-2.0) mmol/L Calcium 8.2 L (8.6-10.3) mg/dL Total Bilirubin 0.40 (0.2-1.0) mg/dL AST 17 (13-39) U/L ALT 46 (7-52) U/L Alkaline Phosphatase 46 (34-104) U/L C-Reactive Protein 68.34 H (< 5.00) mg/L Total Protein 5.5 L (6.4-8.9) g/dL Albumin 2.4 L (3.2-5.2) g/dL Globulin 3.1 (2-4) g/dL Albumin/Globulin Ratio 0.8 L (1-3) Lipase < 10 L (11.0-82.0) U/L Urine Color Yellow Urine Appearance Cloudy Urine pH 6.0 (5-9) Ur Specific [place] 1.024 (1.010-1.030) Urine Protein Negative (Negative) Urine Ketones Negative (Negative) Urine Blood Negative (Negative) Urine Nitrate Negative (Negative) Urine Bilirubin Negative (Negative) Urine Urobilinogen Negative (Negative) Ur Leukocyte Esterase Negative (Negative) Urine Glucose Negative (Negative) 11/09/16 11/09/16 Range/Units 13:30 13:30 WBC (3.5-10.8) 10^3/ul RBC (4.0-5.4) 10^6/ul Hgb (14.0-18.0) g/dl Hct (42-52) % MCV (80-94) fL MCH (27-31) pg MCHC (31-36) g/dl RDW (10.5-15) % Plt Count (150-450) 10^3/ul MPV (7.4-10.4) um3 Neut % (Auto) (38-83) % Lymph % (Auto) (25-47) % [place] % (Auto) (1-9) % Eos % (Auto) (0-6) % Baso % (Auto) (0-2) % Absolute Neuts (auto) (1.5-7.7) 10^3/ul Absolute Lymphs (auto) (1.0-4.8) 10^3/ul Absolute Monos (auto) (0-0.8) 10^3/ul Absolute Eos (auto) (0-0.6) 10^3/ul Absolute Basos (auto) (0-0.2) 10^3/ul Absolute Nucleated RBC 10^3/ul Nucleated RBC % INR (Anticoag Therapy) 1.03 (0.89-1.11) Sodium (133-145) mmol/L Potassium (3.5-5.0) mmol/L Chloride (101-111) mmol/L Carbon Dioxide (22-32) mmol/L Anion Gap (2-11) mmol/L BUN (6-24) mg/dL Creatinine (0.67-1.17) mg/dL Est GFR ( Amer) (>60) Est GFR (Non-Af Amer) (>60) BUN/Creatinine Ratio (8-20) Glucose (70-100) mg/dL Lactic Acid 1.3 (0.5-2.0) mmol/L Calcium (8.6-10.3) mg/dL Total Bilirubin (0.2-1.0) mg/dL AST (13-39) U/L ALT (7-52) U/L Alkaline Phosphatase (34-104) U/L C-Reactive Protein (< 5.00) mg/L Total Protein (6.4-8.9) g/dL Albumin (3.2-5.2) g/dL Globulin (2-4) g/dL Albumin/Globulin Ratio (1-3) Lipase (11.0-82.0) U/L Urine Color Urine Appearance Urine pH (5-9) Ur Specific [place] (1.010-1.030) Urine Protein (Negative) Urine Ketones (Negative) Urine Blood (Negative) Urine Nitrate (Negative) Urine Bilirubin (Negative) Urine Urobilinogen (Negative) Ur Leukocyte Esterase (Negative) Urine Glucose (Negative) Result Diagrams: 11/09/16 13:30 11/09/16 13:30 Lab Statement: Any lab studies that have been ordered have been reviewed, and results considered in the medical decision making process. - EKG 1012 Cardiac Rate: NL - 96bpm EKG Rhythm: Sinus Tachycardia - borderline sinus tachycardia ST Segment: Non-Specific Abdominal Pain Fem Course/Dx - Course Course Of Treatment: Unfortunately Mr. Hardin is not responding to quite a high dose of PO steroids and is becoming quite anemic. He will need to be admitted for IV steroids. - Diagnoses Provider Diagnoses: Ulcerative colitis - Provider Notifications Discussed Care Of Patient With: Dr. Lara (Gastro) @[phone]. Dr. Graves ( Hospitalist) @1269. Discharge - Discharge Plan Condition: Stable Disposition: ADMITTED TO [facility] The documentation as recorded by the scribeAmaury Benjamin accurately reflects the service I personally performed and the decisions made by me, Kyle Cruz MD.
[2016-11-10] MEDS: HYDROcodone/ACETAMIN 5-325 MG* 1 TAB PO PRN ×4 (01:39→22:24)
[2016-11-10] MEDS: methylPREDNISolone SOD 40 MG* 1 ML VIAL IV SCH ×3 (06:03→20:33)
[2016-11-10 11:00] LABS: Comments Flag Yes; Hematocrit 25 % (42-52); Hemoglobin 7.3 g/dl (14.0-18.0); Mean Corpuscular HGB Conc 30 g/dl (31-36); Mean Corpuscular Hemoglobin 21 pg (27-31); Mean Platelet Volume 7 um3 (7.4-10.4); Red Blood Count 3.51 10^6/ul (4.0-5.4); Red Cell Distribution Width 19 % (10.5-15)
[2016-11-10 11:01] LABS: Mean Corpuscular Volume 70 fL (80-94)
--- NOTE | 2016-11-10 12:42 | PN ---
Subjective Date of Service: 11/10/16 Interval History: Feels much better. About 4 BM's from [place] to 11 AM today. Appetite OK. Pain control OK with hydrocodone/APAP. No new c/o. Family History: Findings - Mother had COPD. No family hx IBD. Social History: Findings - , is his SDM. Last smoked a few months ago. No alcohol abuse. Past Medical History: Findings - Other than UC, no significant PMH. Objective Active Medications: Hydrocodone Bitart/Acetaminophen ([place] 5-325 Tab*) 1 tab PO Q4H PRN PRN Reason: PAIN Last Admin: 11/10/16 09:25 Dose: 1 tab Ibuprofen (Motrin Tab*) 800 mg PO BID PRN PRN Reason: PAIN Methylprednisolone Sodium Succinate (Solu-Medrol*) 40 mg IV Q8H [facility] Last Admin: 11/10/16 06:03 Dose: 40 mg Pharmacy Profile Note (Ppd Reading Note*) 1 note .SEE ORDER ONCE [facility]O Stop: 11/12/16 23:59 Vital Signs 11/09/16 11/09/16 11/09/16 15:47 16:06 16:31 Temperature 98.2 F Pulse Rate 81 Respiratory 18 20 16 Rate Blood Pressure 167/84 (mmHg) O2 Sat by Pulse 99 Oximetry 11/09/16 11/09/16 11/09/16 17:00 17:47 20:00 Temperature 98.5 F Pulse Rate 93 Respiratory 16 16 16 Rate Blood Pressure 145/93 (mmHg) O2 Sat by Pulse 100 Oximetry 11/09/16 11/09/16 11/10/16 20:28 23:47 01:39 Temperature 98.0 F 98.5 F Pulse Rate 97 96 Respiratory 16 14 16 Rate Blood Pressure 141/81 154/74 (mmHg) O2 Sat by Pulse 99 98 Oximetry 11/10/16 11/10/16 11/10/16 03:34 03:39 07:34 Temperature 98.2 F 97.3 F Pulse Rate 83 88 Respiratory 16 16 16 Rate Blood Pressure 136/81 156/82 (mmHg) O2 Sat by Pulse 99 97 Oximetry 11/10/16 11/10/16 08:00 09:25 Temperature Pulse Rate Respiratory 16 16 Rate Blood Pressure (mmHg) O2 Sat by Pulse Oximetry Oxygen Devices in Use Now: None Appearance: Alert, sitting on the edge of his bed. In fair spritis. Looks comfortable. Abdominal: NL Sounds; No Tenderness; No Distention, No Hepatosplenomegaly, - Extremities: No Clubbing, Cyanosis, - - Tr edema BL Skin: No Rash or Ulcers, No Nodules or Sclerosis, - Neurological: Alert and Oriented x 3, NL Sensation Result Diagrams: 11/10/16 10:43 11/09/16 13:30 Additional Lab and Data: Lab Results 11/09/16 11/09/16 11/09/16 Range/Units 13:30 13:30 13:30 WBC 10.3 (3.5-10.8) 10^3/ul RBC 3.50 L (4.0-5.4) 10^6/ul Hgb 7.5 L (14.0-18.0) g/dl Hct 24 L (42-52) % MCV 70 L (80-94) fL MCH 21 L (27-31) pg MCHC 31 (31-36) g/dl RDW 19 H (10.5-15) % Plt Count 496 H D (150-450) 10^3/ul MPV 7 L (7.4-10.4) um3 Neut % (Auto) 81.2 (38-83) % Lymph % (Auto) 12.4 L (25-47) % [place] % (Auto) 6.2 (1-9) % Eos % (Auto) 0 (0-6) % Baso % (Auto) 0.2 (0-2) % Absolute Neuts (auto) 8.4 H (1.5-7.7) 10^3/ul Absolute Lymphs (auto) 1.3 (1.0-4.8) 10^3/ul Absolute Monos (auto) 0.6 (0-0.8) 10^3/ul Absolute Eos (auto) 0 (0-0.6) 10^3/ul Absolute Basos (auto) 0 (0-0.2) 10^3/ul Absolute Nucleated RBC 0.01 10^3/ul Nucleated RBC % 0.1 INR (Anticoag Therapy) (0.89-1.11) Sodium 134 (133-145) mmol/L Potassium 3.9 (3.5-5.0) mmol/L Chloride 99 L (101-111) mmol/L Carbon Dioxide 29 (22-32) mmol/L Anion Gap 6 (2-11) mmol/L BUN 13 (6-24) mg/dL Creatinine 0.64 L (0.67-1.17) mg/dL Est GFR ( Amer) 183.0 (>60) Est GFR (Non-Af Amer) 142.3 (>60) BUN/Creatinine Ratio 20.3 H (8-20) Glucose 112 H (70-100) mg/dL Lactic Acid (0.5-2.0) mmol/L Calcium 8.2 L (8.6-10.3) mg/dL Total Bilirubin 0.40 (0.2-1.0) mg/dL AST 17 (13-39) U/L ALT 46 (7-52) U/L Alkaline Phosphatase 46 (34-104) U/L C-Reactive Protein 68.34 H (< 5.00) mg/L Total Protein 5.5 L (6.4-8.9) g/dL Albumin 2.4 L (3.2-5.2) g/dL Globulin 3.1 (2-4) g/dL Albumin/Globulin Ratio 0.8 L (1-3) Lipase < 10 L (11.0-82.0) U/L Urine Color Yellow Urine Appearance Cloudy Urine pH 6.0 (5-9) Ur Specific [place] 1.024 (1.010-1.030) Urine Protein Negative (Negative) Urine Ketones Negative (Negative) Urine Blood Negative (Negative) Urine Nitrate Negative (Negative) Urine Bilirubin Negative (Negative) Urine Urobilinogen Negative (Negative) Ur Leukocyte Esterase Negative (Negative) Urine Glucose Negative (Negative) 11/09/16 11/09/16 Range/Units 13:30 13:30 WBC (3.5-10.8) 10^3/ul RBC (4.0-5.4) 10^6/ul Hgb (14.0-18.0) g/dl Hct (42-52) % MCV (80-94) fL MCH (27-31) pg MCHC (31-36) g/dl RDW (10.5-15) % Plt Count (150-450) 10^3/ul MPV (7.4-10.4) um3 Neut % (Auto) (38-83) % Lymph % (Auto) (25-47) % [place] % (Auto) (1-9) % Eos % (Auto) (0-6) % Baso % (Auto) (0-2) % Absolute Neuts (auto) (1.5-7.7) 10^3/ul Absolute Lymphs (auto) (1.0-4.8) 10^3/ul Absolute Monos (auto) (0-0.8) 10^3/ul Absolute Eos (auto) (0-0.6) 10^3/ul Absolute Basos (auto) (0-0.2) 10^3/ul Absolute Nucleated RBC 10^3/ul Nucleated RBC % INR (Anticoag Therapy) 1.03 (0.89-1.11) Sodium (133-145) mmol/L Potassium (3.5-5.0) mmol/L Chloride (101-111) mmol/L Carbon Dioxide (22-32) mmol/L Anion Gap (2-11) mmol/L BUN (6-24) mg/dL Creatinine (0.67-1.17) mg/dL Est GFR ( Amer) (>60) Est GFR (Non-Af Amer) (>60) BUN/Creatinine Ratio (8-20) Glucose (70-100) mg/dL Lactic Acid 1.3 (0.5-2.0) mmol/L Calcium (8.6-10.3) mg/dL Total Bilirubin (0.2-1.0) mg/dL AST (13-39) U/L ALT (7-52) U/L Alkaline Phosphatase (34-104) U/L C-Reactive Protein (< 5.00) mg/L Total Protein (6.4-8.9) g/dL Albumin (3.2-5.2) g/dL Globulin (2-4) g/dL Albumin/Globulin Ratio (1-3) Lipase (11.0-82.0) U/L Urine Color Urine Appearance Urine pH (5-9) Ur Specific [place] (1.010-1.030) Urine Protein (Negative) Urine Ketones (Negative) Urine Blood (Negative) Urine Nitrate (Negative) Urine Bilirubin (Negative) Urine Urobilinogen (Negative) Ur Leukocyte Esterase (Negative) Urine Glucose (Negative) Microbiology and Other Data: Microbiology 11/09/16 19:15 Stool Gross Appearance - Final Stool C. difficile DNA Amplification - Final 027 Presumptive NEGATIVE Toxigenic C.diff NEGATIVE Assess/Plan/Problems-Billing Assessment: - Patient Problems (1) Ulcerative colitis Current Visit: No Status: Acute Code(s): K51.90 - ULCERATIVE COLITIS, UNSPECIFIED, WITHOUT COMPLICATIONS SNOMED Code(s): 98202020 Comment: Continue methylprednisolone 40 mg IV q 8 hr. ? start infliximab tx . Hepatitis panel and C. difficle test all neg.
[2016-11-10] MEDS: Ondansetron INJ* 2 MG/ML VIAL IV PRN (20:33)
[2016-11-11] MEDS: HYDROcodone/ACETAMIN 5-325 MG* 1 TAB PO PRN ×3 (04:03→19:32)
[2016-11-11] MEDS: methylPREDNISolone SOD 40 MG* 1 ML VIAL IV SCH ×3 (05:22→20:06)
--- NOTE | 2016-11-11 09:48 | PN ---
Subjective Date of Service: 11/11/16 Interval History: Patient seen this morning. Says he continues to have frequent bloody BMs, 5 so far this morning since 3 AM. Continues to have pain, says pain medications are adequate at this point. Family History: Unchanged from Admission Social History: Unchanged from Admission Past Medical History: Unchanged from Admission Objective Active Medications: Hydrocodone Bitart/Acetaminophen ([place] 5-325 Tab*) 1 tab PO Q4H PRN Ibuprofen (Motrin Tab*) 800 mg PO BID PRN Methylprednisolone Sodium Succinate (Solu-Medrol*) 40 mg IV Q8H [facility] Ondansetron HCl (Zofran Inj*) 4 mg IV Q6H PRN Pharmacy Profile Note (Ppd Reading Note*) 1 note .SEE ORDER ONCE [facility]O Vital Signs 11/10/16 11/10/16 11/10/16 11:25 15:12 17:08 Temperature 97.3 F Pulse Rate 89 Respiratory 16 20 18 Rate Blood Pressure 154/78 (mmHg) O2 Sat by Pulse 98 Oximetry 11/10/16 11/10/16 11/11/16 22:24 23:24 00:24 Temperature 97.6 F Pulse Rate 81 Respiratory 16 16 16 Rate Blood Pressure 142/72 (mmHg) O2 Sat by Pulse 98 Oximetry 11/11/16 11/11/16 11/11/16 04:03 06:03 07:33 Temperature 97.7 F Pulse Rate 74 Respiratory 16 16 16 Rate Blood Pressure 159/89 (mmHg) O2 Sat by Pulse 95 Oximetry Oxygen Devices in Use Now: None Appearance: Young, M, laying in bed in NAD Eyes: No Scleral Icterus Ears/Nose/Mouth/Throat: Mucous Membranes Moist Neck: NL Appearance and Movements; NL JVP Respiratory: Symmetrical Chest Expansion and Respiratory Effort, Clear to Auscultation Cardiovascular: NL Sounds; No Murmurs; No JVD, RRR Abdominal: - - Soft, non-distended, mild TTP diffusely, BS+ Lymphatic: No Cervical Adenopathy Extremities: No Edema Skin: No Rash or Ulcers Neurological: Alert and Oriented x 3 Result Diagrams: 11/10/16 10:43 11/09/16 13:30 Assess/Plan/Problems-Billing Assessment: Severe ulcerative colitis with flare in a 36 yo M - Patient Problems (1) Ulcerative colitis Current Visit: No Comment: Appreciate GI assistance. Continue methylprednisolone 40 mg IV q 8 hr. Plan to start infliximab tx 11/11. Hepatitis panel and C. difficle test all neg. (2) Anemia Current Visit: No Comment: H/H stable. Follow intermittently. Labs c/w ACD, may have some component of BRENDA, can start iron supplementation (3) DVT prophylaxis Current Visit: No Comment: SCDs/ambulation
[2016-11-11] MEDS ORDERED: NS 0.9% IVPB ONE (15:00)
[2016-11-11] MEDS ORDERED: diPHENhydraMINE PO* 25 MG PO ONE (15:00)
[2016-11-11] MEDS ORDERED: INFLIXIMAB IVPB ONE (15:00)
[2016-11-11] MEDS ORDERED: Acetaminophen TAB* 325 MG PO ONE (15:00)
[2016-11-12] MEDS: HYDROcodone/ACETAMIN 5-325 MG* 1 TAB PO PRN ×4 (00:07→18:53)
[2016-11-12] MEDS: methylPREDNISolone SOD 40 MG* 1 ML VIAL IV SCH ×3 (05:27→21:18)
[2016-11-12 06:45] LABS: Hematocrit 22 % (42-52); Mean Platelet Volume 7 um3 (7.4-10.4); Red Cell Distribution Width 19 % (10.5-15)
[2016-11-12 06:46] LABS: BUN/Creatinine Ratio 26.7 (8-20); Calcium 8.2 mg/dL (8.6-10.3); EGFR African American 197.2 (>60); EGFR Non-African American 153.3 (>60); Potassium 4.2 mmol/L (3.5-5.0)
[2016-11-12 06:49] LABS: Comments Flag Yes
[2016-11-12 06:53] LABS: Hemoglobin 6.8 g/dl (14.0-18.0); Mean Corpuscular HGB Conc 31 g/dl (31-36); Mean Corpuscular Hemoglobin 22 pg (27-31); Mean Corpuscular Volume 70 fL (80-94); Red Blood Count 3.18 10^6/ul (4.0-5.4); White Blood Count 12.2 10^3/ul (3.5-10.8)
[2016-11-12 06:54] LABS: Add Diff/Slide Review? Slide Review Added
[2016-11-12 07:41] LABS: Hypochromasia 2+; Microcytosis 1+
[2016-11-12] MEDS: Ferrous Sulfate TAB* 325 MG PO SCH (09:33)
[2016-11-12] MEDS ORDERED: Labetalol IV* 5 MG/ML 20 ML VIAL IV PUSH PRN (10:39)
--- NOTE | 2016-11-12 10:40 | PN ---
Subjective Date of Service: 11/12/16 Interval History: Patient seen this morning. Says he has had 3-4 bloody BMs since midnight, not sure he has noticed any effects of the Rem[employer] yet. Still with some pain mostly around the time of his BMs, controlled with medications. Discussed PRBC transfusion. Family History: Unchanged from Admission Social History: Unchanged from Admission Past Medical History: Unchanged from Admission Objective Active Medications: Hydrocodone Bitart/Acetaminophen ([place] 5-325 Tab*) 1 tab PO Q4H PRN Ferrous Sulfate (Ferrous Sulfate Tab*) 325 mg PO DAILY [facility] Ibuprofen (Motrin Tab*) 800 mg PO BID PRN Methylprednisolone Sodium Succinate (Solu-Medrol*) 40 mg IV Q8H [facility] Ondansetron HCl (Zofran Inj*) 4 mg IV Q6H PRN Pharmacy Profile Note (Ppd Reading Note*) 1 note .SEE ORDER ONCE [facility] Vital Signs 11/11/16 11/11/16 11/11/16 12:17 14:35 15:23 Temperature 98.2 F Pulse Rate 90 Respiratory 18 18 16 Rate Blood Pressure 150/85 (mmHg) O2 Sat by Pulse 99 Oximetry 11/11/16 11/11/16 11/11/16 15:40 16:03 16:10 Temperature 97.9 F 98.6 F 98.1 F Pulse Rate 87 81 85 Respiratory 16 16 14 Rate Blood Pressure 159/80 148/82 155/85 (mmHg) O2 Sat by Pulse 98 99 98 Oximetry 11/11/16 11/11/16 11/11/16 16:25 16:35 16:55 Temperature 98.0 F 98.1 F Pulse Rate 85 80 Respiratory 16 16 16 Rate Blood Pressure 151/87 158/94 (mmHg) O2 Sat by Pulse 99 99 Oximetry 11/11/16 11/11/16 11/11/16 17:41 19:32 19:38 Temperature 98.2 F 97.8 F Pulse Rate 87 86 Respiratory 16 18 Rate Blood Pressure 155/92 143/77 (mmHg) O2 Sat by Pulse 99 99 Oximetry 11/11/16 11/11/16 11/11/16 19:49 21:32 23:27 Temperature 97.8 F Pulse Rate 73 Respiratory 16 16 16 Rate Blood Pressure 187/98 (mmHg) O2 Sat by Pulse 97 Oximetry 11/12/16 11/12/16 11/12/16 00:07 00:10 02:07 Temperature Pulse Rate 79 Respiratory 16 16 Rate Blood Pressure 152/89 (mmHg) O2 Sat by Pulse Oximetry 11/12/16 11/12/16 11/12/16 05:27 07:27 07:48 Temperature 97.2 F Pulse Rate 80 Respiratory 16 16 18 Rate Blood Pressure 157/87 (mmHg) O2 Sat by Pulse 97 Oximetry 11/12/16 08:00 Temperature Pulse Rate Respiratory 16 Rate Blood Pressure (mmHg) O2 Sat by Pulse Oximetry Oxygen Devices in Use Now: None Appearance: Middle-aged, M, laying in bed in NAD Eyes: No Scleral Icterus Ears/Nose/Mouth/Throat: Mucous Membranes Moist Neck: NL Appearance and Movements; NL JVP Respiratory: Symmetrical Chest Expansion and Respiratory Effort, Clear to Auscultation Cardiovascular: NL Sounds; No Murmurs; No JVD, RRR Abdominal: - - Soft, non-distended, mild TTP in epigastric and periumbilical areas, BS+, no rebound/guarding Lymphatic: No Cervical Adenopathy Extremities: No Edema Skin: No Rash or Ulcers Neurological: Alert and Oriented x 3 Result Diagrams: 11/12/16 06:09 11/12/16 06:09 Assess/Plan/Problems-Billing Assessment: Severe ulcerative colitis with flare in a 36 yo M - Patient Problems (1) Ulcerative colitis Current Visit: No Comment: Appreciate GI assistance. Received Infliximab on 11/11 in the evening. Still with frequent bloody BMs, continue methylprednisolone 40 mg IV q 8 hr. (2) Anemia Current Visit: No Comment: Hb drifting down, 6.8 this AM, will transfuse 1u PRBC. Labs c/w ACD, may have some component of BRENDA, start iron supplementation (3) HTN (hypertension) Current Visit: Yes Comment: BPs have been elevated in the setting of painful, inflammatory process. Will have prn available but will hold on standing medications at this point. (4) DVT prophylaxis Current Visit: No Comment: SCDs/ambulation Status and Disposition: Pending improvement in symptoms and stabilization of anemia
[2016-11-12] MEDS ORDERED: hydrALAZINE IV* 20 MG/ML VIAL IV SLOW PU PRN (16:52)
[2016-11-12] MEDS: Ondansetron INJ* 2 MG/ML VIAL IV PRN (21:30)
[2016-11-13] MEDS: HYDROcodone/ACETAMIN 5-325 MG* 1 TAB PO PRN ×5 (01:00→23:25)
[2016-11-13] MEDS: methylPREDNISolone SOD 40 MG* 1 ML VIAL IV SCH ×3 (05:24→22:00)
[2016-11-13 06:17] LABS: Hematocrit 25 % (42-52); Hemoglobin 7.7 g/dl (14.0-18.0); Mean Corpuscular HGB Conc 31 g/dl (31-36); Mean Corpuscular Hemoglobin 23 pg (27-31); Mean Platelet Volume 7 um3 (7.4-10.4); Red Blood Count 3.43 10^6/ul (4.0-5.4); Red Cell Distribution Width 20 % (10.5-15); White Blood Count 10.4 10^3/ul (3.5-10.8)
[2016-11-13 06:18] LABS: Comments Flag Yes; Mean Corpuscular Volume 72 fL (80-94)
[2016-11-13 07:34] LABS: BUN/Creatinine Ratio 27.9 (8-20); Calcium 8.2 mg/dL (8.6-10.3); EGFR African American 193.5 (>60); EGFR Non-African American 150.4 (>60); Potassium 4.7 mmol/L (3.5-5.0)
[2016-11-13] MEDS: Ferrous Sulfate TAB* 325 MG PO SCH (09:31)
--- NOTE | 2016-11-13 12:23 | PN ---
Subjective Date of Service: 11/13/16 Interval History: Patient reports some improvements today. Noted stool was more solid yesterday evening. Had 2 BMs so far since midnight (frequency much reduced), still very bloody. Mild abdominal pain. Family History: Unchanged from Admission Social History: Unchanged from Admission Past Medical History: Unchanged from Admission Objective Active Medications: Hydrocodone Bitart/Acetaminophen ([place] 5-325 Tab*) 1 tab PO Q4H PRN Ferrous Sulfate (Ferrous Sulfate Tab*) 325 mg PO DAILY [facility] Hydralazine HCl (Apresoline Iv*) 5 mg IV SLOW PU Q6H PRN Ibuprofen (Motrin Tab*) 800 mg PO BID PRN Methylprednisolone Sodium Succinate (Solu-Medrol*) 40 mg IV Q8H [facility] Ondansetron HCl (Zofran Inj*) 4 mg IV Q6H PRN Vital Signs 11/12/16 11/12/16 11/12/16 13:39 13:59 15:38 Temperature 98.0 F 98.2 F Pulse Rate 93 86 Respiratory 16 20 18 Rate Blood Pressure 161/87 160/85 (mmHg) O2 Sat by Pulse 98 Oximetry 11/12/16 11/12/16 11/12/16 15:59 18:53 19:24 Temperature 98.3 F Pulse Rate 95 Respiratory 20 16 17 Rate Blood Pressure 154/84 (mmHg) O2 Sat by Pulse 98 Oximetry 11/12/16 11/12/16 11/12/16 20:00 20:53 23:28 Temperature 98.2 F Pulse Rate 76 Respiratory 16 16 16 Rate Blood Pressure 155/94 (mmHg) O2 Sat by Pulse 98 Oximetry 11/13/16 11/13/16 11/13/16 01:00 03:00 05:24 Temperature Pulse Rate Respiratory 16 16 18 Rate Blood Pressure (mmHg) O2 Sat by Pulse Oximetry 11/13/16 11/13/16 11/13/16 07:24 07:51 08:00 Temperature 97.6 F Pulse Rate 71 Respiratory 16 18 16 Rate Blood Pressure 138/83 (mmHg) O2 Sat by Pulse 99 Oximetry Oxygen Devices in Use Now: None Appearance: Middle-aged, M, laying in bed in NAD Eyes: No Scleral Icterus Ears/Nose/Mouth/Throat: Mucous Membranes Moist Neck: NL Appearance and Movements; NL JVP Respiratory: Symmetrical Chest Expansion and Respiratory Effort, Clear to Auscultation Cardiovascular: NL Sounds; No Murmurs; No JVD, RRR Abdominal: NL Sounds; No Tenderness; No Distention Lymphatic: No Cervical Adenopathy Extremities: No Edema Skin: No Rash or Ulcers Neurological: Alert and Oriented x 3 Result Diagrams: 11/13/16 06:09 11/13/16 06:09 Additional Lab and Data: Microbiology and Other Data: Assess/Plan/Problems-Billing Assessment: Severe ulcerative colitis with flare in a 36 yo M - Patient Problems (1) Ulcerative colitis Current Visit: No Comment: Appreciate GI assistance. Received Infliximab on 11/11 in the evening. Seems to be improving, continue methylprednisolone 40 mg IV q 8 hr, will see when GI would like to transition to oral prednisone. (2) Anemia Current Visit: No Comment: Appropriate response from 1 u PRBC on 11/12. Labs c/ w ACD, may have some component of BRENDA, start iron supplementation (3) HTN (hypertension) Current Visit: Yes Comment: BPs have been elevated in the setting of painful, inflammatory process. Will have prn available but will hold on standing medications at this point. (4) DVT prophylaxis Current Visit: No Comment: SCDs/ambulation Status and Disposition: Pending improvement in symptoms and stabilization of anemia
[2016-11-14] MEDS: methylPREDNISolone SOD 40 MG* 1 ML VIAL IV SCH (05:07)
[2016-11-14] MEDS: HYDROcodone/ACETAMIN 5-325 MG* 1 TAB PO PRN ×4 (05:10→21:13)
[2016-11-14 06:27] LABS: Hematocrit 24 % (42-52); Hemoglobin 7.2 g/dl (14.0-18.0); Mean Corpuscular HGB Conc 30 g/dl (31-36); Mean Corpuscular Hemoglobin 22 pg (27-31); Mean Platelet Volume 7 um3 (7.4-10.4); Red Cell Distribution Width 20 % (10.5-15); White Blood Count 12.5 10^3/ul (3.5-10.8)
[2016-11-14 06:30] LABS: Comments Flag Yes; Mean Corpuscular Volume 71 fL (80-94)
[2016-11-14 06:46] LABS: BUN/Creatinine Ratio 36.5 (8-20); Calcium 8.1 mg/dL (8.6-10.3); EGFR African American 232.6 (>60); EGFR Non-African American 180.9 (>60); Potassium 4.3 mmol/L (3.5-5.0)
[2016-11-14] MEDS: Ferrous Sulfate TAB* 325 MG PO SCH (08:23)
[2016-11-14] MEDS ORDERED: predniSONE TAB* 20 MG PO SCH (09:00)
[2016-11-14] MEDS: Ondansetron INJ* 2 MG/ML VIAL IV PRN ×2 (09:55→21:13)
--- NOTE | 2016-11-14 15:31 | PN ---
Subjective Date of Service: 11/14/16 Interval History: Patient seen this afternoon. Stooling seems to have slowed. Still having intermittent abdominal pains, gas pains. Some blood with wiping. Tolerating PO. Family History: Unchanged from Admission Social History: Unchanged from Admission Past Medical History: Unchanged from Admission Objective Active Medications: Hydrocodone Bitart/Acetaminophen ([place] 5-325 Tab*) 1 tab PO Q4H PRN PRN Reason: PAIN Last Admin: 11/14/16 09:21 Dose: 1 tab Ferrous Sulfate (Ferrous Sulfate Tab*) 325 mg PO DAILY [facility] Last Admin: 11/14/16 08:23 Dose: 325 mg Hydralazine HCl (Apresoline Iv*) 5 mg IV SLOW PU Q6H PRN PRN Reason: SBP > 180 Ondansetron HCl (Zofran Inj*) 4 mg IV Q6H PRN PRN Reason: NAUSEA Last Admin: 11/14/16 09:55 Dose: 4 mg Prednisone (Deltasone Tab*) 40 mg PO DAILY [facility] Vital Signs 11/13/16 11/13/16 11/13/16 16:18 16:57 18:23 Temperature 97.3 F Pulse Rate 89 Respiratory 20 19 Rate Blood Pressure 185/92 148/78 (mmHg) O2 Sat by Pulse 98 Oximetry 11/13/16 11/14/16 11/14/16 23:31 01:25 05:10 Temperature 97.0 F Pulse Rate 88 Respiratory 16 16 18 Rate Blood Pressure 137/82 (mmHg) O2 Sat by Pulse 98 Oximetry 11/14/16 11/14/16 11/14/16 07:10 07:32 08:00 Temperature 97.7 F Pulse Rate 85 Respiratory 16 16 16 Rate Blood Pressure 139/85 (mmHg) O2 Sat by Pulse 100 Oximetry Oxygen Devices in Use Now: None Appearance: Middle-aged, M, laying in bed in NAD Eyes: No Scleral Icterus Ears/Nose/Mouth/Throat: Mucous Membranes Moist Neck: NL Appearance and Movements; NL JVP Respiratory: Symmetrical Chest Expansion and Respiratory Effort, Clear to Auscultation Cardiovascular: NL Sounds; No Murmurs; No JVD, RRR Abdominal: NL Sounds; No Tenderness; No Distention Lymphatic: No Cervical Adenopathy Extremities: No Edema Skin: No Rash or Ulcers Neurological: Alert and Oriented x 3 Result Diagrams: 11/14/16 06:02 11/14/16 06:02 Additional Lab and Data: Microbiology and Other Data: Assess/Plan/Problems-Billing Assessment: Severe ulcerative colitis with flare in a 36 yo M - Patient Problems (1) Ulcerative colitis Current Visit: No Comment: Appreciate GI assistance. Received Infliximab on 11/11 in the evening. Transitioned to PO Prednisone 40 mg daily. (2) Anemia Current Visit: No Comment: Appropriate response from 1 u PRBC on 11/12. Labs c/ w ACD, may have some component of BRENDA, start iron supplementation. Recheck CBC tomorrow. (3) HTN (hypertension) Current Visit: Yes Comment: BPs stable, continue to monitor (4) DVT prophylaxis Current Visit: No Comment: SCDs/ambulation Status and Disposition: Pending improvement in symptoms and stabilization of anemia
[2016-11-14] MEDS ORDERED: predniSONE TAB* 20 MG PO ONE (23:45)
[2016-11-15] MEDS: HYDROcodone/ACETAMIN 5-325 MG* 1 TAB PO PRN ×4 (03:56→21:23)
[2016-11-15] MEDS: Ondansetron INJ* 2 MG/ML VIAL IV PRN ×2 (03:56→17:46)
[2016-11-15 05:53] LABS: Hematocrit 22 % (42-52); Hemoglobin 6.8 g/dl (14.0-18.0); Mean Corpuscular HGB Conc 31 g/dl (31-36); Mean Corpuscular Hemoglobin 22 pg (27-31); Mean Platelet Volume 7 um3 (7.4-10.4); Red Blood Count 3.06 10^6/ul (4.0-5.4); White Blood Count 9.6 10^3/ul (3.5-10.8)
[2016-11-15 05:56] LABS: Comments Flag Yes
[2016-11-15 05:57] LABS: Mean Corpuscular Volume 72 fL (80-94); Red Cell Distribution Width 20 % (10.5-15)
[2016-11-15] MEDS: Ferrous Sulfate TAB* 325 MG PO SCH (08:29)
[2016-11-15] MEDS ORDERED: predniSONE TAB* 20 MG PO SCH (09:00)
[2016-11-15] MEDS ORDERED: predniSONE TAB* 20 MG PO ONE (11:19)
--- NOTE | 2016-11-15 12:38 | PN ---
Subjective Date of Service: 11/15/16 Interval History: Patient seen this morning. Said in the afternoon yesterday BMs began to get looser and bloodier. Continued overnight. Family History: Unchanged from Admission Social History: Unchanged from Admission Past Medical History: Unchanged from Admission Objective Active Medications: Hydrocodone Bitart/Acetaminophen ([place] 5-325 Tab*) 1 tab PO Q4H PRN PRN Reason: PAIN Last Admin: 11/15/16 08:35 Dose: 1 tab Ferrous Sulfate (Ferrous Sulfate Tab*) 325 mg PO DAILY [facility] Last Admin: 11/15/16 08:29 Dose: 325 mg Hydralazine HCl (Apresoline Iv*) 5 mg IV SLOW PU Q6H PRN PRN Reason: SBP > 180 Ondansetron HCl (Zofran Inj*) 4 mg IV Q6H PRN PRN Reason: NAUSEA Last Admin: 11/15/16 03:56 Dose: 4 mg Prednisone (Deltasone Tab*) 60 mg PO DAILY [facility] Vital Signs 11/14/16 11/14/16 11/14/16 15:15 15:49 17:44 Temperature Pulse Rate 87 Respiratory 16 16 16 Rate Blood Pressure 139/85 (mmHg) O2 Sat by Pulse 98 Oximetry 11/14/16 11/14/16 11/14/16 21:13 21:15 23:13 Temperature Pulse Rate Respiratory 18 20 18 Rate Blood Pressure (mmHg) O2 Sat by Pulse Oximetry 11/14/16 11/15/16 11/15/16 23:15 03:56 05:56 Temperature 97.9 F Pulse Rate 81 Respiratory 16 20 20 Rate Blood Pressure 166/87 (mmHg) O2 Sat by Pulse 99 Oximetry 11/15/16 11/15/16 11/15/16 07:31 08:00 08:35 Temperature 97.4 F Pulse Rate 83 Respiratory 16 16 16 Rate Blood Pressure 138/80 (mmHg) O2 Sat by Pulse 98 Oximetry 11/15/16 11/15/16 11/15/16 10:35 11:19 11:48 Temperature 96.7 F Pulse Rate 86 89 Respiratory 16 16 16 Rate Blood Pressure 115/68 130/68 (mmHg) O2 Sat by Pulse 98 99 Oximetry 11/15/16 11:50 Temperature 98.7 F Pulse Rate Respiratory Rate Blood Pressure (mmHg) O2 Sat by Pulse Oximetry Oxygen Devices in Use Now: None Appearance: Young, M, laying in bed in NAD Eyes: No Scleral Icterus Ears/Nose/Mouth/Throat: Mucous Membranes Moist Neck: NL Appearance and Movements; NL JVP Respiratory: Symmetrical Chest Expansion and Respiratory Effort, Clear to Auscultation Cardiovascular: NL Sounds; No Murmurs; No JVD, RRR Abdominal: NL Sounds; No Tenderness; No Distention Lymphatic: No Cervical Adenopathy Extremities: No Edema Skin: No Rash or Ulcers Neurological: Alert and Oriented x 3 Result Diagrams: 11/15/16 05:16 11/14/16 06:02 Additional Lab and Data: Microbiology and Other Data: Assess/Plan/Problems-Billing Assessment: Severe ulcerative colitis with flare in a 36 yo M - Patient Problems (1) Ulcerative colitis Current Visit: No Comment: Appreciate GI assistance. Received Infliximab on 11/11 in the evening. Transitioned to PO Prednisone 40 mg daily on 11/14 with worsening symptoms. Spoke to GI who felt there was not much benefit to Prednisone doses higher than 40-60 mg daily, will give additional 20 mg today for a total of 60 and continue with 60 mg tomorrow. (2) Anemia Current Visit: No Comment: Hb drifted down again with continued bloody BMs, will transfuse 2u PRBC today. Labs c/w ACD, may have some component of BRENDA, start iron supplementation. (3) HTN (hypertension) Current Visit: Yes Comment: BPs stable, continue to monitor (4) DVT prophylaxis Current Visit: No Comment: SCDs/ambulation Status and Disposition: Pending improvement in symptoms and stabilization of anemia
[2016-11-16] MEDS: HYDROcodone/ACETAMIN 5-325 MG* 1 TAB PO PRN ×2 (01:55→07:35)
[2016-11-16] MEDS: Ondansetron INJ* 2 MG/ML VIAL IV PRN ×2 (01:56→07:35)
[2016-11-16 06:29] LABS: Hematocrit 27 % (42-52); Hemoglobin 8.3 g/dl (14.0-18.0); Mean Corpuscular HGB Conc 31 g/dl (31-36); Mean Corpuscular Hemoglobin 23 pg (27-31); Mean Platelet Volume 7 um3 (7.4-10.4); Red Blood Count 3.63 10^6/ul (4.0-5.4); Red Cell Distribution Width 21 % (10.5-15)
[2016-11-16 06:30] LABS: Comments Flag Yes; Mean Corpuscular Volume 74 fL (80-94)
[2016-11-16 07:23] VITALS: BP 144/92
[2016-11-16] MEDS: Ferrous Sulfate TAB* 325 MG PO SCH (07:35)
[2016-11-16] MEDS ORDERED: predniSONE TAB* 20 MG PO SCH (09:00)
--- NOTE | 2016-11-16 09:10 | PN ---
"Subjective Date of Service: 11/16/16 Interval History: Patient states he had abut 10 BM'S yesterday, some bloody. 4 BM;'s so far today , liquid and bloody. Occ mild pain relieved by hydrocodone/APAP. Appetite OK. No new c/o. Family History: Unchanged from Admission Social History: Unchanged from Admission Past Medical History: Unchanged from Admission Objective Active Medications: Hydrocodone Bitart/Acetaminophen ([place] 5-325 Tab*) 1 tab PO Q4H PRN PRN Reason: PAIN Last Admin: 11/16/16 07:35 Dose: 1 tab Ferrous Sulfate (Ferrous Sulfate Tab*) 325 mg PO DAILY [facility] Last Admin: 11/16/16 07:35 Dose: 325 mg Iron Sucrose 200 mg/ Sodium (Chloride) 260 mls @ 260 mls/hr IVPB ONCE ONE Stop: 11/16/16 09:59 Ondansetron HCl (Zofran Inj*) 4 mg IV Q6H PRN PRN Reason: NAUSEA Last Admin: 11/16/16 07:35 Dose: 4 mg Prednisone (Deltasone Tab*) 60 mg PO DAILY [facility] Last Admin: 11/16/16 07:35 Dose: 60 mg Vital Signs 11/15/16 11/15/16 11/15/16 10:35 11:19 11:48 Temperature 96.7 F Pulse Rate 86 89 Respiratory 16 16 16 Rate Blood Pressure 115/68 130/68 (mmHg) O2 Sat by Pulse 98 99 Oximetry 11/15/16 11/15/16 11/15/16 11:50 13:58 14:05 Temperature 98.7 F 97.5 F Pulse Rate 86 Respiratory Rate Blood Pressure 135/69 (mmHg) O2 Sat by Pulse 98 Oximetry 11/15/16 11/15/16 11/15/16 14:19 14:25 14:50 Temperature 97.9 F 98.2 F Pulse Rate 87 Respiratory 16 Rate Blood Pressure 135/71 (mmHg) O2 Sat by Pulse 98 Oximetry 11/15/16 11/15/16 11/15/16 14:55 16:20 16:27 Temperature 98.2 F Pulse Rate 91 78 Respiratory 16 16 20 Rate Blood Pressure 128/66 148/79 (mmHg) O2 Sat by Pulse 98 99 Oximetry 11/15/16 11/15/16 11/15/16 17:19 17:24 18:20 Temperature 98.1 F Pulse Rate 84 Respiratory 18 Rate Blood Pressure 127/69 (mmHg) O2 Sat by Pulse 99 Oximetry 11/15/16 11/15/16 11/15/16 20:00 21:23 23:10 Temperature 98.0 F Pulse Rate 73 Respiratory 16 18 16 Rate Blood Pressure 137/76 (mmHg) O2 Sat by Pulse 99 Oximetry 11/15/16 11/16/16 11/16/16 23:23 01:55 03:55 Temperature Pulse Rate Respiratory 18 16 18 Rate Blood Pressure (mmHg) O2 Sat by Pulse Oximetry 11/16/16 11/16/16 07:22 07:35 Temperature 97.6 F Pulse Rate 97 Respiratory 18 18 Rate Blood Pressure 144/92 (mmHg) O2 Sat by Pulse 96 Oximetry Oxygen Devices in Use Now: None Appearance: Supine in bed. Neutral affect. Looks comfortabble. Alert. Eyes: No Scleral Icterus Extremities: No Edema, No Clubbing, Cyanosis, - Skin: No Rash or Ulcers, No Nodules or Sclerosis, - Neurological: Alert and Oriented x 3, NL Sensation Result Diagrams: 11/16/16 05:56 11/14/16 06:02 Additional Lab and Data: Microbiology and Other Data: Assess/Plan/Problems-Billing Assessment: Severe ulcerative colitis with flare in a 36 yo M - Patient Problems (1) Ulcerative colitis Current Visit: No Status: Acute Code(s): K51.90 - ULCERATIVE COLITIS, UNSPECIFIED, WITHOUT COMPLICATIONS SNOMED Code(s): 58443833 Comment: Received Infliximab on 11/11 in the evening. Failed on prednisone 40 mg daily, increased to 60 mg 11/15 (received extra 20 mg 11/15 in PM). Discharge now. Discussed with Dr. Winkler. Fup Dr. Bryant (2) Anemia Current Visit: No Status: Acute Code(s): D64.9 - ANEMIA, UNSPECIFIED SNOMED Code(s): 809084221 Comment: Received 3 U PC's since 11/12. Irons studies c/w BRENDA, ferritin would be lower if not in an acute inflammatory state. Contineu po iron supplementation but give one dose iron sucrose 200 mg 11/16. Hgb 8.3 11/16/16. CBC as outpt 11/19/16. (3) Thrombocytopenia Current Visit: No Status: Acute Code(s): D69.6 - THROMBOCYTOPENIA, UNSPECIFIED SNOMED Code(s): 307385797 Comment: Unknown if thrombocytopenia preceded his sx's of UC. He may have ITP or other cause of thrombocytopenia not directly related to UC that is being treated by prednisone. Status and Disposition: Discharge now. Fup Dr. Winkler. earch Terms: antonio HARDIN, 1980 Search Date: 11/16/2016 01:50:58 PM This report was requested by: Marin Graves | Reference #: [id number] My Prescriptions Patient Name: Antonio Hardin Date: 1980 Address: [address] [place] [address] Sex: Male Rx Written Rx Dispensed Drug Quantity Days Supply Prescriber Name 11/03/2016 11/03/2016 hydrocodone-acetaminophen 5-325 tablet 20 5 Marin Graves MD"
--- NOTE | 2016-11-16 13:53 | PN ---
Progress Note - Progress Note Note: Time spent on discharge 50 minutes.
--- NOTE | 2016-11-17 04:44 | DS ---
CC: Dr. Winkler DISCHARGE SUMMARY: DATE OF ADMISSION: DATE OF DISCHARGE: 11/16/16 HISTORY OF PRESENT ILLNESS: This 36-year-old man presented with bloody diarrhea and abdominal pain. He was recently diagnosed as ulcerative colitis. He went home on 30 mg of prednisone t.i.d. Afte r couple of days, he started feeling worse and was having too much diarrhea and blood and abdominal pain to be managed at home. He is only home a few days. The patient received intravenous methylprednisolone. He received infliximab 800 mg on 11/11/16 at 3 :18 p.m. He did not tolerate having his prednisone lowered to 40 mg a day. He was given extra dose of 20 mg on 11/15/16 and we will continue on 60 mg a day until the followup appointment with Dr. Davis. He required a total of 3 units of blood. His hemoglobin on the day after surgery was 8.3. He was g iven one dose of iron sucrose 200 mg IV on the day of discharge. He will continue on ferrous sulfate 325 mg daily. He will get a CBC as an outpatient on 11/19/[address] Winkler in his office on 11/21/16. DISCHARGE DIAGNOSES: 1. Ulcerative colitis. 2. Iron-deficiency anemia. 3. Possible idiopathic thrombocytopenic purpura. DISCHARGE MEDICATIONS: 1. Ferrous sulfate 325 mg daily. 2. Prednisone 10 mg 6 tablets daily. 3. Hydrocodone/acetaminophen 5/325 one every 4 hours p.r.n. 4. Ibuprofen 800 mg b.i.d. p.r.n. [id number]/[facility] #: [id number]
== END 2016-11-16 17:05 | disposition home or self-care (01) | DRG 245 ==
LOC: ED 09:57 → MED 14:56
PROVIDERS: ADMIT Internal Medicine; ATTEND Internal Medicine
PROC: 30233N1 Transfusion of Nonautologous Red Blood Cells into Peripheral Vein, Percutaneous Approach (ICD-10-PCS; principal; 2016-11-15)
DX: K51.011 Ulcerative (chronic) pancolitis with rectal bleeding (principal); D69.3 Immune thrombocytopenic purpura; I10 Essential (primary) hypertension; D50.9 Iron deficiency anemia, unspecified; E66.9 Obesity, unspecified; Z68.39 Body mass index [BMI] 39.0-39.9, adult; Z87.891 Personal history of nicotine dependence; Z82.5 Family history of asthma and other chronic lower respiratory diseases; Z79.52 Long term (current) use of systemic steroids
CPT/HCPCS: 36415; 80048; 80053; 80074; 81003; 83605; 83690; 85025; 85610; 86140; 86850; 86900; 86901; 86922; 87493; 93005; A9270-GY; J1745; J1756; J2405; J2920; J7512; P9040

== ENCOUNTER → 2016-12-05 15:58 | Emergency (ER) | payer BC ==
[~2016-12-05 15:58] MED LIST: HYDROcodone/ACETAMIN 5-325 MG* 1 TAB PO ONE; NS 0.9% 1000 ML* 2,000 ML IV ONE; Ondansetron INJ* 2 MG/ML VIAL IV ONE; Pantoprazole IV* 40 MG IV ONE
[2016-12-05 21:34] LABS: Hematocrit 21 % (42-52); Mean Corpuscular HGB Conc 30 g/dl (31-36); Mean Corpuscular Hemoglobin 22 pg (27-31); Mean Corpuscular Volume 72 fL (80-94); Mean Platelet Volume 7 um3 (7.4-10.4); Red Blood Count 2.93 10^6/ul (4.0-5.4); Red Cell Distribution Width 22 % (10.5-15); White Blood Count 9.3 10^3/ul (3.5-10.8)
[2016-12-05 21:35] LABS: Comments Flag Yes
[2016-12-05 21:40] LABS: Add Diff/Slide Review? Slide Review Added; Hemoglobin 6.3 g/dl (14.0-18.0)
[2016-12-05 21:50] LABS: Albumin 2.5 g/dL (3.2-5.2); BUN/Creatinine Ratio 16.7 (8-20); C Reactive Protein 25.73 mg/L (< 5.00); Calcium 8.3 mg/dL (8.6-10.3); EGFR African American 123.5 (>60); Globulin 3.1 g/dL (2-4); Potassium 3.6 mmol/L (3.5-5.0); Total Bilirubin 0.3 mg/dL (0.2-1.0); Total Protein 5.6 g/dL (6.4-8.9)
[2016-12-05 22:00] LABS: Hypochromasia 2+; Microcytosis 1+; Toxic Granulation 1+
--- NOTE | 2016-12-06 00:05 | ED ---
Juan Campbell SooYoung, scribed for Luis A Maagllanes MD on 12/05/16 at 2013 . GI/ HPI - HPI Summary HPI Summary: A 36 y/o M presents to ED with c/o melena onset 2-3 days ago. Approximately 10x episodes today. Associated sx: abd pain. Pert PMHx: UC. Pt called his GI doctor today but did not hear back from him, so he came to ED. Family member states pt has "lost 60 lbs in past month" and gets dizzy easily when walking around the home. No abd surgeries. - History of Current Complaint Chief Complaint: EDGIBleed Time Seen by Provider: 12/05/16 20:10 Stated Complaint: BLOOD IN STOOL Hx Obtained From: Patient, Family/Appraiser Personal Property Onset/Duration: Started Days Ago, Still Present Timing: Intermittent Severity: Moderate Current Severity: Moderate Pain Intensity: 8 - out of 10 Associated Signs and Symptoms: Positive: Dizziness, Blood w/Stool, Abdominal Pain - Additional Pertinent History Primary Care Physician: RENTETA - Allergy/Home Medications Allergies/Adverse Reactions: Allergies Allergy/AdvReac Type Severity Reaction Status Date / Time No Known Allergies Allergy Verified 11/28/16 11:32 PMH/Surg Hx/FS Hx/Imm Hx Previously Healthy: No Endocrine/Hematology History: Denies: Hx Anticoagulant Therapy, Hx Diabetes, Hx Thyroid Disease Cardiovascular History: Denies: Hx Congestive Heart Failure, Hx Deep Vein Thrombosis, Hx Hypertension , Hx Myocardial Infarction, Hx Pacemaker/ICD Respiratory History: Denies: Hx Asthma, Hx Chronic Obstructive Pulmonary Disease (COPD), Hx Lung Cancer, Hx Pneumonia, Hx Pulmonary Embolism GI History: Reports: Hx Gastrointestinal Bleed - See HPI. HE had this before., Other GI Disorders - pt states nothing diagnosed but has had "issues" similar to current admissi Denies: Hx Gall Bladder Disease, Hx Ulcer, Hx Urosepsis History: Denies: Hx Kidney Stones, Hx Renal Disease Sensory History: Reports: Hx Contacts or Glasses Denies: Hx Hearing Aid Opthamlomology History: Reports: Hx Contacts or Glasses Neurological History: Denies: Hx Dementia, Hx Migraine, Hx Seizures, Hx Transient Ischemic Attacks (TIA) Psychiatric History: Denies: Hx Anxiety, Hx Depression, Hx Schizophrenia, Hx Bipolar Disorder - Immunization History Date of Tetanus Vaccine: UTD Date of Influenza Vaccine: NO Infectious Disease History: Denies: Traveled Outside the US in Last 30 Days - Family History Known Family History: Negative: Cardiac Disease, Hypertension - Social History Occupation: Employed Full-time Lives: Alone Alcohol Use: None Hx Substance Use: No Substance Use Type: Reports: None Hx Tobacco Use: Yes Smoking Status (MU): Former Smoker Have You Smoked in the Last Year: Yes - a few now and then, quit every day 2 yrs ago Review of Systems Negative: Fever Positive: Abdominal Pain Positive: other - pos: melena Neurological: Other - pos: dizziness All Other Systems Reviewed And Are Negative: Yes Physical Exam Triage Information Reviewed: Yes Vital Signs On Initial Exam: Initial Vitals Temp Pulse Resp BP Pulse Ox 97.8 F 106 18 139/91 100 12/05/16 16:03 12/05/16 16:03 12/05/16 16:03 12/05/16 16:03 12/05/16 16:03 Vital Signs Reviewed: Yes Appearance: Positive: Well-Appearing, No Pain Distress Skin: Positive: Warm, Dry, Pale Head/Face: Positive: Normal Head/Face Inspection Eyes: Positive: EOMI, JAN ENT: Positive: Normal ENT inspection Neck: Positive: Supple, Nontender Respiratory/Lung Sounds: Positive: Clear to Auscultation, Breath Sounds Present Cardiovascular: Positive: Tachycardia Abdomen Description: Positive: Soft, Other: - MINIMAL DIFFUSE TENDERNESS WITH PALPATION, MORESO ON L-SIDE Bowel Sounds: Positive: Hypoactive Musculoskeletal: Positive: Normal, Strength/ROM Intact Neurological: Positive: Normal, Sensory/Motor Intact, Alert, Oriented to Person Place, Time Psychiatric: Positive: Affect/Mood Appropriate Diagnostics - Vital Signs Vital Signs Temp Pulse Resp BP Pulse Ox 12/05/16 19:50 98.6 F 106 144/84 100 12/05/16 18:37 98 F 123 146/87 100 12/05/16 17:23 98.1 F 122 134/84 100 12/05/16 16:03 97.8 F 106 18 139/91 100 - Laboratory Lab Results: Lab Results 12/05/16 12/05/16 12/05/16 Range/Units 21:25 21:25 21:25 WBC 9.3 (3.5-10.8) 10^3/ul RBC 2.93 L (4.0-5.4) 10^6/ul Hgb 6.3 L* (14.0-18.0) g/dl Hct 21 L (42-52) % MCV 72 L (80-94) fL MCH 22 L (27-31) pg MCHC 30 L (31-36) g/dl RDW 22 H (10.5-15) % Plt Count 426 (150-450) 10^3/ul MPV 7 L (7.4-10.4) um3 Neut % (Auto) 78.6 (38-83) % Lymph % (Auto) 15.5 L (25-47) % Bailey % (Auto) 5.7 (1-9) % Eos % (Auto) 0 (0-6) % Baso % (Auto) 0.2 (0-2) % Absolute Neuts (auto) 7.3 (1.5-7.7) 10^3/ul Absolute Lymphs (auto) 1.4 (1.0-4.8) 10^3/ul Absolute Monos (auto) 0.5 (0-0.8) 10^3/ul Absolute Eos (auto) 0 (0-0.6) 10^3/ul Absolute Basos (auto) 0 (0-0.2) 10^3/ul Absolute Nucleated RBC 0.02 10^3/ul Nucleated RBC % 0.2 Toxic Granulation 1+ Normal RBC Morphology Not Reportable Hypochromasia 2+ Microcytosis 1+ INR (Anticoag Therapy) 1.05 (0.89-1.11) APTT 27.4 (26.0-36.3) seconds Sodium 137 (133-145) mmol/L Potassium 3.6 (3.5-5.0) mmol/L Chloride 102 (101-111) mmol/L Carbon Dioxide 28 (22-32) mmol/L Anion Gap 7 (2-11) mmol/L BUN 15 (6-24) mg/dL Creatinine 0.90 (0.67-1.17) mg/dL Est GFR ( Amer) 123.5 (>60) Est GFR (Non-Af Amer) 96.0 (>60) BUN/Creatinine Ratio 16.7 (8-20) Glucose 140 H (70-100) mg/dL Lactic Acid (0.5-2.0) mmol/L Calcium 8.3 L (8.6-10.3) mg/dL Magnesium 2.0 (1.9-2.7) mg/dL Total Bilirubin 0.30 (0.2-1.0) mg/dL AST 22 (13-39) U/L ALT 39 (7-52) U/L Alkaline Phosphatase 55 (34-104) U/L Total Creatine Kinase 12 (10-223) U/L CK-MB (CK-2) 1.1 (0.6-6.3) ng/mL C-Reactive Protein 25.73 H (< 5.00) mg/L Total Protein 5.6 L (6.4-8.9) g/dL Albumin 2.5 L (3.2-5.2) g/dL Globulin 3.1 (2-4) g/dL Albumin/Globulin Ratio 0.8 L (1-3) Lipase 13 (11.0-82.0) U/L Blood Type Antibody Screen Crossmatch 12/05/16 12/05/16 Range/Units 21:25 21:25 WBC (3.5-10.8) 10^3/ul RBC (4.0-5.4) 10^6/ul Hgb (14.0-18.0) g/dl Hct (42-52) % MCV (80-94) fL MCH (27-31) pg MCHC (31-36) g/dl RDW (10.5-15) % Plt Count (150-450) 10^3/ul MPV (7.4-10.4) um3 Neut % (Auto) (38-83) % Lymph % (Auto) (25-47) % Bailey % (Auto) (1-9) % Eos % (Auto) (0-6) % Baso % (Auto) (0-2) % Absolute Neuts (auto) (1.5-7.7) 10^3/ul Absolute Lymphs (auto) (1.0-4.8) 10^3/ul Absolute Monos (auto) (0-0.8) 10^3/ul Absolute Eos (auto) (0-0.6) 10^3/ul Absolute Basos (auto) (0-0.2) 10^3/ul Absolute Nucleated RBC 10^3/ul Nucleated RBC % Toxic Granulation Normal RBC Morphology Hypochromasia Microcytosis INR (Anticoag Therapy) (0.89-1.11) APTT (26.0-36.3) seconds Sodium (133-145) mmol/L Potassium (3.5-5.0) mmol/L Chloride (101-111) mmol/L Carbon Dioxide (22-32) mmol/L Anion Gap (2-11) mmol/L BUN (6-24) mg/dL Creatinine (0.67-1.17) mg/dL Est GFR ( Amer) (>60) Est GFR (Non-Af Amer) (>60) BUN/Creatinine Ratio (8-20) Glucose (70-100) mg/dL Lactic Acid 3.1 H* (0.5-2.0) mmol/L Calcium (8.6-10.3) mg/dL Magnesium (1.9-2.7) mg/dL Total Bilirubin (0.2-1.0) mg/dL AST (13-39) U/L ALT (7-52) U/L Alkaline Phosphatase (34-104) U/L Total Creatine Kinase (10-223) U/L CK-MB (CK-2) (0.6-6.3) ng/mL C-Reactive Protein (< 5.00) mg/L Total Protein (6.4-8.9) g/dL Albumin (3.2-5.2) g/dL Globulin (2-4) g/dL Albumin/Globulin Ratio (1-3) Lipase (11.0-82.0) U/L Blood Type A Negative Antibody Screen Negative Crossmatch See Detail Result Diagrams: 12/05/16 21:25 12/05/16 21:25 Lab Statement: Any lab studies that have been ordered have been reviewed, and results considered in the medical decision making process. Re-Evaluation - Re-Evaluation 1 Re-Evaluation Time: 22:17 Change: Unchanged Comment: Discussing resuls with pt, plan for blood transfusion and to transfer. GIGU Course/Dx - Course Course Of Treatment: Pt is a 36 y/o M with UC presents with melena and abd pain onset 2-3 days ago. Approximately 10x episodes today. No past abd surgeries. Pt given fluids, norco, zofran and protonix in ED. Lab results show Hgb is 6.3, CRP is 25.73, lactic acid is 3.1. NO GI AT [facility] [place]. ACCEPTED IN TRANSFER TO [facility] BY DR KURTZ. STABLE AT TRANSFER. - Diagnoses Provider Diagnoses: GI bleed, Anemia, Tachycardia - Physician Notifications Discussed Care Of Patient With: Carlton Izaguirre - hospitalist Time Discussed With Above Provider: 20:24 - Critical Care Time Critical Care Time: 30-74 min Discharge - Discharge Plan Condition: Stable Disposition: TRANS HIGHER LVL OF CARE FAC Referrals: No Primary Care Phys,NOPCP [Primary Care Provider] - The documentation as recorded by the Juan tristan SooYoung accurately reflects the service I personally performed and the decisions made by me, Luis A Magallanes MD.
[2016-12-06 01:10] VITALS: BP 135/81
== END | disposition short-term general hospital (02) ==
LOC: ED 15:58
DX: K92.2 Gastrointestinal hemorrhage, unspecified (principal); D64.9 Anemia, unspecified; R00.0 Tachycardia, unspecified; Z87.891 Personal history of nicotine dependence
CPT/HCPCS: 36415; 80053; 82550; 82553; 83605; 83690; 83735; 85025; 85610; 85730; 86140; 86850; 86900; 86901; 86922; 96360; 96374; 96375; 99285; J2405; P9040

== ENCOUNTER 2016-12-14 09:26 | Inpatient (IN) | payer BC ==
[2016-12-14] MEDS ORDERED: Acetaminophen TAB* 325 MG PO PRN (16:03)
[2016-12-14] MEDS ORDERED: Docusate CAP* 100 MG PO PRN (16:03)
[2016-12-14] MEDS ORDERED: Senna TAB PO PRN (16:03)
[2016-12-14] MEDS ORDERED: HYDROcodone/ACETAMIN 5-325 MG* 1 TAB PO PRN (16:15)
[2016-12-14] MEDS ORDERED: Loperamide CAP* 2 MG PO PRN (16:18)
[2016-12-14] MEDS: HYDROcodone/ACETAMIN 5-325 MG* 1 TAB PO PRN ×2 (16:22→20:29)
[2016-12-14] MEDS ORDERED: Dextrose 50% Syringe 50 ML* 25 GM/50 ML SYRINGE IV PUSH PRN (16:26)
[2016-12-14] MEDS ORDERED: Insulin LISPRO* 1 UNITS UNIT SUBCUT SCH (16:30)
[2016-12-14 17:42] VITALS: BP 154/92
--- NOTE | 2016-12-14 19:01 | HP ---
HISTORY AND PHYSICAL: DATE OF ADMISSION: 12/14/16 REASON FOR ADMISSION: Ulcerative colitis with status post total abdominal colectomy with end ileostomy and wound vac placement. HISTORY OF PRESENT ILLNESS: Vance Hardin is a 36-year-old male. The patient was diagnosed with ulcerative colitis several months ago. He was initially treated with prednisone and Remicade. The patient was initially having trouble with bloody diarrhea for several weeks in October of this year. He was hospitalized. A CAT scan was done, which showed colonic thickening. He had a colonoscopy, which showed colitis. Multiple biopsies were taken. There were [id number] colitis seen on all specimens. He was started on IV steroids and had an excellent response to this. He was diagnosed with ulcerative colitis. The diarrhea recurred after he was sent home on prednisone. He was started on Remicade at that time. He was transfused during a second hospitalization. The patient returned to our emergency room on December 05 with 7 days of bloody diarrhea. At that time, he was found to have a hemoglobin of 6.3. He was transferred to [facility]. He was transfused 2 units of packed cells prior to transfer. On initial evaluation, he had a CAT scan at [facility] showing pancolitis without a megacolon. A colonoscopy was attempted, but aborted due to profound mucosal inflammation and concern for perforation. He proceeded to get IV steroids and IV antibiotics and an additional 4 units of packed cells. He was felt to be stable by December 07. On December 09, he began to have worsening abdominal pain with imaging identifying a pneumoperitoneum. He was taken to the operating room on December 09 and underwent a total abdominal colectomy with an end ileostomy. He had a wound vac placed. He tolerated the procedure well, but required an additional 4 units of packed cells intraoperatively. He was transferred to the surgical ICU in stable condition. He had an acute kidney injury, which apparently resolved. He was transitioned to oral pain medication. His ostomy began to function on December 13. He was advanced to diet as tolerated. He was felt to be hemodynamically stable. He was profoundly weak in his lower extremities as a result of his long hospitalization. He was requiring assistance of 2 people to transfer. He was unable to stand up on his own. He was unable to walk on his own. He was felt to have physical and occupational therapy needs. He is now being admitted for inpatient rehab so that he might return to independent living. PAST MEDICAL HISTORY: As noted above. CURRENT MEDICATIONS: Include: 1. Aspirin 325 mg once a day. 2. He is on Lovenox 40 mg subcutaneously once a day. 3. Imodium 2 mg as needed. 4. He is on a prednisone taper currently on 20 mg twice a day. 5. He is on Protonix. 6. [place] for pain control. ALLERGIES: No known drug allergies. SOCIAL HISTORY: He is a nonsmoker, nondrinker. He lives with his significant other and 3 kids in a trailer in [place]. His discharge plan is to go either home with his mother or his brother to a one-story apartment. 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 REVIEW OF SYSTEMS: The patient reports no current shortness of breath or chest pain. He reports a 70 pound weight gain since December 05 PHYSICAL EXAMINATION VITAL SIGNS: The patient's temperature is 97.9, blood pressure is 150/90, pulse is 96, respirations 22. HEENT: Extraocular movements are intact. Tongue is midline. NECK: Supple. LUNGS: Sound clear to auscultation bilaterally. HEART: Sounds are regular. S1 and S2 are audible. ABDOMEN: He has a functioning ileostomy. He has a midline incision, but the wound vac is going to go on. His bowel sounds are audible. EXTREMITIES: His extremities showed 1+ edema at both legs. Muscle strength in his lower extremity is about 3/5 in both lower extremities. His functional exam, he transfers with max assist. NEUROLOGIC: He is awake, alert, oriented. ASSESSMENT: Weakness following a prolonged hospital course for ulcerative colitis. He underwent abdominal surgery including a total abdominal colectomy with an end ileostomy. PLAN: We are going to integrate him into a comprehensive and therapeutic rehab program. We will have the following goals: 1. Physical Therapy will work with the patient. They are going to work on functional transfer training, ambulation training with a walker. 2. Occupational Therapy will see the patient and work on his activities of daily living including toileting and toilet transfers. 3. Lovenox for DVT prophylaxis. 4. Adequate analgesia. 5. Surgical followup as needed. 6. [employer] Instructional Assistant will be closely involved to make sure that any services and equipment that the patient requires are in place prior to discharge. 7. Advance directives: The patient is a full code. 8. Family training as appropriate. 9. Diuresis as needed. The patient apparently has gained about 60 pounds in water weight from frequent transfusions and IV fluids. We are going to start him on Lasix and follow his kidney function. 10. Home with appropriate services. ESTIMATED LENGTH OF STAY: 3 to 4 weeks. [id number]/CPS #: [id number] MTDD
[2016-12-14] MEDS ORDERED: Ferrous Sulfate TAB* 325 MG PO SCH (21:00)
[2016-12-14] MEDS ORDERED: predniSONE TAB* 20 MG PO SCH (21:00)
[2016-12-14] MEDS ORDERED: Ondansetron ODT TAB* 4 MG PO PRN (21:46)
[2016-12-14] MEDS ORDERED: PROCHLORPERAZINE INJ 5 MG/ML 2 ML VIAL IM ONE (23:02)
[2016-12-14 23:20] LABS: Hematocrit 25 % (42-52); Hemoglobin 7.8 g/dl (14.0-18.0); Mean Corpuscular HGB Conc 31 g/dl (31-36); Mean Corpuscular Hemoglobin 26 pg (27-31); Mean Corpuscular Volume 82 fL (80-94); Mean Platelet Volume 8 um3 (7.4-10.4); Red Blood Count 3.02 10^6/ul (4.0-5.4); Red Cell Distribution Width 21 % (10.5-15); White Blood Count 30.1 10^3/ul (3.5-10.8)
[2016-12-14 23:24] LABS: Comments Flag Yes
[2016-12-14 23:29] LABS: Add Diff/Slide Review? Manual Diff Added
[2016-12-14 23:40] LABS: Immature Granulocytes 10 % (0-9); Macrocytosis 1+; Microcytosis 1+; Neutrophil % 82 % (38-83); Reactive Lymph % 1 % (0-6)
--- NOTE | 2016-12-15 03:56 | CONSULT ---
Consult Consult: CAT note CC/HPI: Mr Hardin is a 36YO morbidly obese white male HX ulcerative colitis who presented to [facility] 12/06/2016 for 10days of bright red blood per rectum and transferred to [facility] where he underwent pancolectomy 12/09 for severe izaguirre-colitis complicated by dorie perforation currently on steroids who arrived to [facility] around 1600 today in transfer from [facility]. Around 1700 he began to feel poorly progressing by ~1900 to have tachycardia in the 150s, hypotension with systolics as low as 70s, diaphoresis, SOB, nausea with bilious emesis, & light- headedness. He reported increased hypogastric abdominal pain, but denied chest pain, subjective F/C, or other issues. During initial evaluation in [facility] in tandem with Dr Vicente, cotton roll packer, he became progressively tachycardic and hypotensive resulting in transfer to ED for stabilization. He was placed on Vapotherm and given BLE IO lines as peripheral access was tenuous. A total of 4L IVF resuscitation was given and he was started on IV piperacillin/ tazobactam. Tonie Saucedo MD surgery was in the ED and evaluated. Given his recent extensive surgery, Dr Saucedo contacted [facility] and transfer back to their facility was arranged. After 3L IVFs, his HGB and decreased from 7.8 to <6. His WBCs were increased from 11k this AM at [facility] to 30k tonight. Abdominal film showed likely ileus and an NG was inserted for decompression. Case was turned over to Deanne Guido MD ED for transfer via helicopter. PMedHX : morbid obesity : ulcerative colitis SocHX: no tobacco, alcohol, or recreational drugs; lives with his & 3 children; full code status FamHX: denies Vitals: as above, frequently reviewed general: morbidly obese white male in mild acute distress CV: TR/RR, sinus tachycardia w/o ischemia on ECG lungs: B rhonchi, fair to good aeration abdomen: soft, mildly distended, mild to moderately tender diffusely worst in the hypogastrum, no rebound/guarding/rigidity, midline wound vac in place, RLQ colostomy appears to be healing well, hypoactive BS extremities: cool & moist integument: diaphoretic & cool labs: reviewed ECG: reviewed abdominal film: reviewed assessment: plan favor septic vs hemorrhagic shock : aggressive IVF resuscitation : 2 units pRBCs : piperacillin/tazobactam IV : pressors, if necessary to maintain MAP >65 : transfer to [facility] via helicopter : supplemental oxygen : supportive care
[2016-12-15] MEDS ORDERED: Piperac/Tazob 3.375 gm in NS* 3.375 GM in PREMIX* 0 ML IVPB SCH ×2 (04:30)
[2016-12-15] MEDS ORDERED: Omeprazole CAP* 20 MG PO SCH (07:30)
--- NOTE | 2016-12-15 07:45 | RAD ---
HISTORY: Status post colectomy COMPARISONS: CT dated October 28, 2016, chest x-ray dated December 14, 2016 VIEWS: Frontal views of the abdomen, performed supine. The left abdomen is not completely included within the [id number] the current examination.. FINDINGS: BOWEL: There is diffuse distention mild dilatation of small bowel loops without transition point. CALCULI: There are no abnormal calculi. BONES AND SOFT TISSUES: There are no osseous abnormalities. OTHER FINDINGS: The lung bases are clear. There is no subphrenic gas. IMPRESSION: DIFFUSE DISTENTION AND MILD DILATATION OF SMALL BOWEL LOOPS. THE DIFFERENTIAL INCLUDES ILEUS VERSUS EARLY OBSTRUCTION. RECOMMEND ATTENTION ON FOLLOW-UP EXAMINATION
[2016-12-15] MEDS ORDERED: Furosemide TAB* 20 MG PO SCH (09:00)
[2016-12-15] MEDS ORDERED: Enoxaparin(*) 40 MG/0.4 ML SYR SUBCUT SCH (09:00)
[2016-12-15] MEDS ORDERED: Aspirin EC TAB* 325 MG PO SCH (09:00)
[2016-12-17] MEDS ORDERED: predniSONE TAB* 5 MG PO SCH (21:00)
--- NOTE | 2016-12-19 00:24 | DS ---
DISCHARGE SUMMARY: DATE OF ADMISSION: 12/14/16 DATE OF DISCHARGE: 12/14/16 DISCHARGE DIAGNOSES: 1. Shock, septic versus hemorrhagic. 2. Status post total abdominal colectomy with ileostomy. 3. Ulcerative colitis. 4. Acute blood loss anemia secondary to ulcerative colitis. 5. A wound VAC for open abdominal wound. HISTORY OF ILLNESS AND HOSPITAL COURSE: For complete history of the events leading up to his rehab stay, please see the history and physical dictated by me on December 14. The patient arrived on the rehab floor at roughly 4 o'clock in the afternoon. He was stable at that time. At 9 p.m., the patient called the nurse to complain of nausea. An order for Zofran was given. The patient received a dose of Zofran. At 9:45, he called for the nurse again to say he did not feel well. His vital signs were taken shortly thereafter, which showed that his blood pressure had dropped to 95/40 and his heart rate had increased to the 140s. The physician television newscast director was notified. Stat labs were ordered. There was some difficulty in obtaining the labs secondary to access issues. A CAT team was called at roughly 10:30 as the patient continued to deteriorate. Labs were able to be drawn at roughly 11:10. The patient's situation continued to deteriorate. He was transferred to the emergency room to be stabilized, so that he could be transferred back to [facility]. DISCHARGE DIET: Per the emergency room staff. DISCHARGE MEDICATIONS: Per the emergency room staff. [id number]/[facility] #: [id number] MTDD
[2016-12-20] MEDS ORDERED: predniSONE TAB* 10 MG PO SCH (21:00)
[2016-12-24] MEDS ORDERED: predniSONE TAB* 10 MG PO SCH (09:00)
== END 2016-12-14 22:34 | disposition short-term general hospital (02) | DRG 862 ==
LOC: PMRU 15:49
PROVIDERS: ADMIT Physical Medicine & Rehabilitation; ATTEND Physical Medicine & Rehabilitation
DX: Z48.815 Encounter for surgical aftercare following surgery on the digestive system (principal); Z68.42 Body mass index [BMI] 45.0-49.9, adult; I95.9 Hypotension, unspecified; Z93.2 Ileostomy status; E66.01 Morbid (severe) obesity due to excess calories; Z79.82 Long term (current) use of aspirin; Z79.01 Long term (current) use of anticoagulants; Z79.52 Long term (current) use of systemic steroids; Z79.899 Other long term (current) drug therapy; R53.1 Weakness; R00.0 Tachycardia, unspecified
CPT/HCPCS: 36415; 74000; 83605; 85025; 86850; 86900; 86901; 86922; A9270-GY; J0780; J2543; J7512; P9040

== ENCOUNTER 2016-12-14 23:47 | Emergency (ER) | payer BC ==
[2016-12-14] MEDS ORDERED: NS 0.9% 1000 ML* 3,000 ML IV ONE (23:48)
[2016-12-15 00:46] LABS: Albumin 1.8 g/dL (3.2-5.2); C Reactive Protein 31.45 mg/L (< 5.00); EGFR Non-African American 159.4 (>60); Globulin 2.8 g/dL (2-4); Total Bilirubin 0.6 mg/dL (0.2-1.0); Total Protein 4.6 g/dL (6.4-8.9); Troponin I 0.03 ng/mL (<0.04)
[2016-12-15 01:03] LABS: Hematocrit 19 % (42-52); Mean Corpuscular HGB Conc 30 g/dl (31-36); Mean Corpuscular Hemoglobin 25 pg (27-31); Mean Corpuscular Volume 84 fL (80-94); Mean Platelet Volume 8 um3 (7.4-10.4); Red Blood Count 2.28 10^6/ul (4.0-5.4); Red Cell Distribution Width 20 % (10.5-15); White Blood Count 32.8 10^3/ul (3.5-10.8)
[2016-12-15 01:04] LABS: Comments Flag Yes
[2016-12-15 01:05] LABS: Add Diff/Slide Review? Slide Review Added; Hemoglobin 5.7 g/dl (14.0-18.0)
[2016-12-15] MEDS ORDERED: HYDROmorphone* 1 MG/ML 1 ML SYR IV SLOW PU ONE (01:25)
--- NOTE | 2016-12-15 01:25 | ED ---
Reena Campbell Alok, scribed for Daniel Guido MD on 12/15/16 at 0034 . Respiratory - HPI Summary HPI Summary: 36M presents to the ED transferred from [facility] diaphoretic, pale, and in respiratory distress. Pt presents with O2 sat of 92 and respiratory rate of 40. PSHx includes total colectomy. - History of Current Complaint Chief Complaint: EDRespiratoryDistress Stated Complaint: NAUSEA/PAIN Time Seen by Provider: 12/14/16 23:48 Hx Obtained From: EMS, Medical Records Onset/Duration: Still Present Timing: Constant Initial Severity: Moderate Current Severity: Moderate Pain Intensity: 0 Aggravating Factor(s): Nothing Alleviating Factor(s): Nothing Associated Signs and Symptoms: SOB, Diaphoresis - Allergy/Home Medications Allergies/Adverse Reactions: Allergies Allergy/AdvReac Type Severity Reaction Status Date / Time No Known Allergies Allergy Verified 11/28/16 11:32 PMH/Surg Hx/FS Hx/Imm Hx Endocrine/Hematology History: Denies: Hx Anticoagulant Therapy, Hx Diabetes, Hx Thyroid Disease Cardiovascular History: Denies: Hx Congestive Heart Failure, Hx Deep Vein Thrombosis, Hx Hypertension , Hx Myocardial Infarction, Hx Pacemaker/ICD Respiratory History: Denies: Hx Asthma, Hx Chronic Obstructive Pulmonary Disease (COPD), Hx Lung Cancer, Hx Pneumonia, Hx Pulmonary Embolism GI History: Reports: Hx Gastrointestinal Bleed - See HPI. HE had this before., Other GI Disorders - pt states nothing diagnosed but has had "issues" similar to current admissi Denies: Hx Gall Bladder Disease, Hx Ulcer, Hx Urosepsis History: Denies: Hx Kidney Stones, Hx Renal Disease Sensory History: Reports: Hx Contacts or Glasses Denies: Hx Hearing Aid Opthamlomology History: Reports: Hx Contacts or Glasses Neurological History: Denies: Hx Dementia, Hx Migraine, Hx Seizures, Hx Transient Ischemic Attacks (TIA) Psychiatric History: Denies: Hx Anxiety, Hx Depression, Hx Schizophrenia, Hx Bipolar Disorder - Immunization History Date of Tetanus Vaccine: UTD Date of Influenza Vaccine: NO Infectious Disease History: No Infectious Disease History: Denies: Traveled Outside the US in Last 30 Days - Family History Known Family History: Negative: Cardiac Disease, Hypertension - Social History Alcohol Use: None Hx Substance Use: No Substance Use Type: Reports: None Hx Tobacco Use: Yes Smoking Status (MU): Former Smoker Have You Smoked in the Last Year: Yes - a few now and then, quit every day 2 yrs ago Review of Systems Positive: Skin Diaphoresis Positive: Shortness Of Breath Positive: Other - pallor All Other Systems Reviewed And Are Negative: Yes Physical Exam - Summary Physical Exam Summary: The patient is well-nourished in no acute distress and in no acute pain. The skin diaphoretic and pale HEENT: The head is normocephalic and atraumatic. The pupils are equal and reactive. Neck is supple with full range of motion and non-tender. There are no carotid bruits. There is no neck vein distension. Respiratory: Chest is non-tender. Rales in chest. Cardiovascular: Hear is regular rate and rhythm. There is no murmur or rub auscultated. There is no peripheral edema and pulses are symmetrical and equal. Abdomen: The abdomen is soft and non-tender. There are normal bowel sounds heard in all four quadrants and there is no organomegaly palpated. Musculoskeletal: There is no back pain noted. Extremities are non-tender with full range of motion. There is good capillary refill. There is no peripheral edema or calf tenderness elicited. Neurological: Patient is alert and oriented to person, place and time. The patient has symmetrical motor strength in all four extremities. Cranial nerves are grossly intact. Deep tendon reflexes are symmetrical and equal in all four extremities. Psychiatric: The patient has an appropriate affect and does not exhibit any anxiety or depression. Triage Information Reviewed: Yes Vital Signs On Initial Exam: Initial Vitals Temp Pulse Resp BP Pulse Ox 99.3 F 171 40 70/40 92 12/15/16 00:01 12/15/16 00:01 12/15/16 00:01 12/15/16 00:01 12/15/16 00:01 Vital Signs Reviewed: Yes Diagnostics - Vital Signs Vital Signs Temp Pulse Resp BP Pulse Ox 12/15/16 00:01 99.3 F 171 40 70/40 92 - Laboratory Lab Results: Lab Results 12/14/16 12/14/16 12/15/16 Range/Units 23:05 23:05 00:20 WBC 32.8 H (3.5-10.8) 10^3/ul RBC 2.28 L (4.0-5.4) 10^6/ul Hgb 5.7 L* (14.0-18.0) g/dl Hct 19 L (42-52) % MCV 84 (80-94) fL MCH 25 L (27-31) pg MCHC 30 L (31-36) g/dl RDW 20 H (10.5-15) % Plt Count 406 (150-450) 10^3/ul MPV 8 (7.4-10.4) um3 Neut % (Auto) 94.2 H (38-83) % Lymph % (Auto) 3.6 L (25-47) % [place] % (Auto) 1.6 (1-9) % Eos % (Auto) 0.1 (0-6) % Baso % (Auto) 0.5 (0-2) % Absolute Neuts (auto) 30.9 H (1.5-7.7) 10^3/ul Absolute Lymphs (auto) 1.2 (1.0-4.8) 10^3/ul Absolute Monos (auto) 0.5 (0-0.8) 10^3/ul Absolute Eos (auto) 0 (0-0.6) 10^3/ul Absolute Basos (auto) 0.2 (0-0.2) 10^3/ul Absolute Nucleated RBC 0.26 10^3/ul Nucleated RBC % 0.8 INR (Anticoag Therapy) 1.08 (0.89-1.11) APTT 30.0 (26.0-36.3) seconds Sodium 136 (133-145) mmol/L Potassium 4.0 (3.5-5.0) mmol/L Chloride 105 (101-111) mmol/L Carbon Dioxide 22 (22-32) mmol/L Anion Gap 9 (2-11) mmol/L BUN 11 (6-24) mg/dL Creatinine 0.58 L (0.67-1.17) mg/dL Est GFR ( Amer) 205.0 (>60) Est GFR (Non-Af Amer) 159.4 (>60) BUN/Creatinine Ratio 19.0 (8-20) Glucose 155 H (70-100) mg/dL Calcium 8.0 L (8.6-10.3) mg/dL Total Bilirubin 0.60 (0.2-1.0) mg/dL AST 20 (13-39) U/L ALT 16 (7-52) U/L Alkaline Phosphatase 45 (34-104) U/L Troponin I 0.03 (<0.04) ng/mL C-Reactive Protein 31.45 H (< 5.00) mg/L Total Protein 4.6 L (6.4-8.9) g/dL Albumin 1.8 L (3.2-5.2) g/dL Globulin 2.8 (2-4) g/dL Albumin/Globulin Ratio 0.6 L (1-3) Result Diagrams: 12/15/16 00:20 12/14/16 23:05 Lab Statement: Any lab studies that have been ordered have been reviewed, and results considered in the medical decision making process. - Radiology CXR Xray Interpretation: Positive (See Comments) - no lower lobe infiltrate. no ARDS. no CHF Radiology Interpretation Completed By: ED Physician Lilly Guido - EKG 0015 Cardiac Rate: Tachycardia - 146 bpm EKG Rhythm: Sinus Tachycardia ST Segment: Non-Specific EKG Interpretation: No STEMI. No A-Fib. Disposition - Differential Dx - Cardiopulmonary Differential Diagnoses - Cardiopulmonary: Acute Coronary, Acute Dyspnea, CAD, CHF, Lower Resp Infection, Pulmonary Embolism, Other - sepsis, acute gi bleed - Diagnoses Provider Diagnoses: Sepsis, Status post colon resection, Anemia, GI bleed - Physician Notifications Discussed Care Of Patient With: Curt Saucedo - Recommends pt transfer to [facility]. Time Discussed With Above Provider: 00:54 - Spoke with Dr. Brian at [facility] who accepts pt for transfer Reason For Transfer: Specialty or service not available [place] [facility] - Critical Care Time Critical Care Time: 30-74 min - 30 min Discharge - Discharge Plan Condition: Stable Disposition: TRANS HIGHER LVL OF CARE FAC Referrals: No Primary Care Phys,NOPCP [Primary Care Provider] - The documentation as recorded by the Reena tristan Alok accurately reflects the service I personally performed and the decisions made by , Daniel Guido MD.
[2016-12-15 02:35] VITALS: BP 90/63
--- NOTE | 2016-12-15 07:48 | RAD ---
HISTORY: Shortness of breath, pneumonia COMPARISONS: October 28, 2016 VIEWS:1: Single frontal portable view of the chest at 12:07 AM FINDINGS: LINES AND TUBES: None. CARDIOMEDIASTINAL SILHOUETTE: The cardiomediastinal silhouette is normal for portable technique and phase of inspiration. PLEURA: The costophrenic angles are sharp. No pleural abnormalities are noted. LUNG PARENCHYMA: The lung volumes are low. The lungs are clear accounting for the phase of respiration. ABDOMEN: The upper abdomen is clear. There is no subphrenic gas. BONES AND SOFT TISSUES: No bone or soft tissue abnormalities are noted. IMPRESSION: LOW LUNG VOLUMES. NO ACTIVE CARDIOPULMONARY DISEASE.
== END 2016-12-15 03:00 | disposition short-term general hospital (02) ==
LOC: ED 23:47
DX: A41.9 Sepsis, unspecified organism (principal); Z90.49 Acquired absence of other specified parts of digestive tract; K92.2 Gastrointestinal hemorrhage, unspecified; R06.02 Shortness of breath; D64.9 Anemia, unspecified; R61 Generalized hyperhidrosis; Z87.891 Personal history of nicotine dependence; R23.1 Pallor
CPT/HCPCS: 36415; 71010; 80053; 84484; 85025; 85610; 85730; 86140; 87040; 93005; 96374; 99285; J2543